=== PATIENT | female | born 1935 | race Caucasian/White ===

== ENCOUNTER 2017-02-05 03:43 | Emergency (ER) | payer MEDICAID ==
[~2017-02-05] VITALS: Ht 152.4 cm; Wt 82.0 kg
[~2017-02-05 03:43] MED LIST: ASPI-1035 PO; FURO-151 PO; GABA-531 PO; LOSA100T14 PO; Nifedipine PO; OMEP20TA80 PO; ONDA4TAB5 PO; SIMV20TA6 PO
[2017-02-05 04:28] VITALS: BP 199/87
[2017-02-05 04:50] LABS: BASOPHILS % 0.4 % (0.0-2.0); HEMOGLOBIN. 10.5 g/dL (12.0-16.0); MEAN CORPUSCULAR VOLUME 91.2 fL (81.0-99.0); MEAN PLATELET VOLUME 8.8 fl (7.4-10.4); MONOCYTES % 8.8 % (2.0-8.0); NEUTROPHILS % 68.8 % (40.0-76.0); PLATELET 157 x1000/uL (130-400); RED CELL DISTRIBUTION WIDTH 14.2 % (11.6-14.6); WHITE BLOOD COUNT 6.9 x1000/uL (4.5-11.0)
[2017-02-05 05:01] LABS: ALANINE AMINOTRANSFERASE 18 IU/L (13-61); ALBUMIN 2.1 g/dL (3.4-5.0); ANION GAP 12; CALCIUM 8.3 mg/dL (8.5-10.1); CARBON DIOXIDE 27 mEq/L (21-32); CHLORIDE 111 mEq/L (98-107); INDEX HEMOLYSI 1 (1-3); INDEX ICTERIC 1 (1-4); INDEX LIPEMIC 1 (1-3); UREA NITROGEN BLOOD 17 mg/dL (7-21); eGFR 36 mL/min (>60)
[2017-02-05 05:16] LABS: PARTIAL THROMBOPLASTIN TIME 32.7 sec (24.0-34.0); PROTHROMBIN TIME 10.8 sec
== END 2017-02-05 07:04 | disposition home or self-care (01) ==
LOC: ER 03:44
DX: S01.81XA Laceration without foreign body of other part of head, initial encounter (principal); M54.2 Cervicalgia; E11.9 Type 2 diabetes mellitus without complications; M25.562 Pain in left knee; R79.1 Abnormal coagulation profile; W19.XXXA Unspecified fall, initial encounter; Y93.89 Activity, other specified; Y99.8 Other external cause status; Y92.89 Other specified places as the place of occurrence of the external cause; Z79.82 Long term (current) use of aspirin
CPT/HCPCS: 36415; 70450; 70486; 72125; 73562; 80053; 85025; 85610; 85730; 99285; Z7610

== ENCOUNTER 2017-07-11 19:38 | Inpatient (IN) | payer MEDICAID ==
[~2017-07-11] VITALS: Ht 134.6 cm; Wt 66.2 kg
[~2017-07-11 19:38] MED LIST changes: -ASPI-1035 PO; +ASPI-1158 PO; +OMEP20TA2 PO; -OMEP20TA80 PO
[2017-07-11] MEDS ORDERED: ONDANSETRON HCL 4MG/2ML VIAL IV ONE (20:45)
[2017-07-11] MEDS ORDERED: MORPHINE SULFATE 4 MG/ML CPJ (NOT FOR IM USE) IV ONE (20:45)
[2017-07-11 20:47] LABS: BASOPHILS % 0.3 % (0.0-2.0); HEMATOCRIT. 34.3 % (36.0-48.0); HEMOGLOBIN. 11.6 g/dL (12.0-16.0); LYMPHOCYTES % 24.2 % (20.0-50.0); MEAN CORPUSCULAR HEMOGLOBIN 30.7 pg (28.0-32.0); MEAN CORPUSCULAR VOLUME 90.8 fL (81.0-99.0); NEUTROPHILS % 62.5 % (40.0-76.0); PLATELET 224 x1000/uL (130-400); RED BLOOD CELL COUNT 3.78 mill/uL (4.2-5.4); RED CELL DISTRIBUTION WIDTH 13.8 % (11.6-14.6)
[2017-07-11 20:48] LABS: GLUCOSE URINE 1+ (NEGATIVE); KETONES URINE NEGATIVE (NEGATIVE); LEUKOCYTE ESTERASE URINE NEGATIVE (NEGATIVE); NITRITE URINE NEGATIVE (NEGATIVE); OCCULT BLOOD URINE 1+ (NEGATIVE); PH URINE 7.5 (4.5-8.0); PROTEIN URINE 3+ (NEGATIVE); SPECIFIC GRAVITY URINE 1.007 (1.005-1.030); UROBILINOGEN URINE 0.2 E.U./dL (0.2-1.0)
[2017-07-11 20:50] LABS: CLARITY URINE CLEAR (CLEAR); COLOR URINE YELLOW (YELLOW)
[2017-07-11 20:51] LABS: CHLORIDE 107 mEq/L (98-107)
[2017-07-11 20:53] LABS: PROTHROMBIN TIME 10.4 sec (9.4-11.6)
[2017-07-11 20:55] LABS: CARBON DIOXIDE 22 mEq/L (21-32)
[2017-07-11 21:02] LABS: TROPONIN I < 0.02 ng/mL (0.00-0.04)
[2017-07-11] MEDS ORDERED: SODIUM POLYSTYRENE SULFONATE 15 G/60 ML BOT PO ONE (21:15)
[2017-07-11] MEDS ORDERED: HYDRALAZINE 20MG/ML VIAL IV ONE (21:15)
[2017-07-11] MEDS ORDERED: CALCIUM CHLORIDE 1GM/10ML SYR IV ONE (21:15)
[2017-07-11] MEDS ORDERED: SODIUM BICARBONATE 8.4% 1 MEQ/ML 50ML SYR IV ONE (21:15)
[2017-07-12] MEDS ORDERED: FUROSEMIDE 100MG/10ML VIAL IV STA (00:48)
[2017-07-12] MEDS ORDERED: SODIUM BICARBONATE 8.4% 1 MEQ/ML 50ML SYR IV ONE (01:00)
[2017-07-12] MEDS ORDERED: INSULIN REGULAR (HUMULIN R) 300UNITS/3ML IV ONE (01:00)
[2017-07-12] MEDS ORDERED: DEXTROSE 50% WATER 50ML SYRINGE IV ONE (01:00)
[2017-07-12 02:10] VITALS: BP 156/63
[2017-07-12 04:00] VITALS: BP 156/63
[2017-07-12] MEDS ORDERED: DEXTROSE 50% WATER 50ML SYRINGE IV PRN (05:00)
[2017-07-12] MEDS ORDERED: HYDROCODONE/ACETAMINOPHEN 5/325MG TABLET PO PRN (05:00)
[2017-07-12] MEDS: BLOOD SUGAR DIAGNOSTIC STRIP TEST SCH ×4 (06:07→21:28)
[2017-07-12 07:20] LABS: BASOPHILS % 0.3 % (0.0-2.0); HEMATOCRIT. 31.1 % (36.0-48.0); HEMOGLOBIN. 10.6 g/dL (12.0-16.0); LYMPHOCYTES % 19.1 % (20.0-50.0); MEAN CORPUSCULAR HEMOGLOBIN 30.6 pg (28.0-32.0); MEAN CORPUSCULAR VOLUME 90.1 fL (81.0-99.0); MEAN PLATELET VOLUME 8.9 fl (7.4-10.4); NEUTROPHILS % 69.6 % (40.0-76.0); PLATELET 210 x1000/uL (130-400); RED BLOOD CELL COUNT 3.45 mill/uL (4.2-5.4); RED CELL DISTRIBUTION WIDTH 13.9 % (11.6-14.6)
[2017-07-12 07:54] LABS: CARBON DIOXIDE 26 mEq/L (21-32); CHLORIDE 108 mEq/L (98-107); CREATINE KINASE 154 IU/L (26-192); CREATINE KINASE MB FRACTION 1.6 ng/mL (0.5-3.6); TROPONIN I < 0.02 ng/mL (0.00-0.04)
[2017-07-12 08:00] VITALS: BP 144/68
[2017-07-12] MEDS: INSULIN LISPRO 100 UNITS/ML SUBCUT SCH ×4 (09:18→21:37)
[2017-07-12] MEDS ORDERED: SODIUM POLYSTYRENE SULFONATE 15 G/60 ML BOT PO NR (11:00)
[2017-07-12 12:00] VITALS: BP 135/60
[2017-07-12] MEDS ORDERED: ACETAMINOPHEN 325MG TABLET PO PRN (12:15)
[2017-07-12] MEDS ORDERED: RANI150T7 PO (12:28)
[2017-07-12] MEDS ORDERED: OYSTER CALCIUM PO (12:28)
[2017-07-12] MEDS ORDERED: SPIR25TA4 PO (12:28)
[2017-07-12] MEDS ORDERED: FURO20TA4 PO (12:28)
[2017-07-12] MEDS ORDERED: AMLO2.5T45 PO (12:28)
[2017-07-12] MEDS ORDERED: OMEP20CA10 PO (12:28)
[2017-07-12] MEDS ORDERED: CHOL20004 PO (12:28)
[2017-07-12] MEDS ORDERED: SITA50TA3 PO (12:28)
[2017-07-12] MEDS ORDERED: VITAMIN D PO (12:30)
[2017-07-12] MEDS ORDERED: ALEN70TA46 PO (12:30)
[2017-07-12 15:39] LABS: CREATINE KINASE 130 IU/L (26-192); TROPONIN I < 0.02 ng/mL (0.00-0.04)
[2017-07-12 16:00] VITALS: BP 148/63
[2017-07-12] MEDS ORDERED: LACTULOSE 20G/30ML UDC PO NR ×2 (17:30→21:30)
[2017-07-12] MEDS: AMLODIPINE 2.5MG TABLET PO SCH (18:23)
[2017-07-12 20:00] VITALS: BP 133/69
[2017-07-12] MEDS ORDERED: MEDICATION NOT ON FORMULARY EA (Simvastatin 20 MG) PO SCH (21:00)
[2017-07-12] MEDS: ATORVASTATIN CALCIUM 10MG TABLET PO SCH (21:28)
[2017-07-13] VITALS: BP 155/78
[2017-07-13 04:00] VITALS: BP 145/56
[2017-07-13 06:46] LABS: BASOPHILS % 0.2 % (0.0-2.0); HEMATOCRIT. 30.4 % (36.0-48.0); HEMOGLOBIN. 10.2 g/dL (12.0-16.0); LYMPHOCYTES % 23.6 % (20.0-50.0); MEAN CORPUSCULAR HEMOGLOBIN 30.5 pg (28.0-32.0); MEAN PLATELET VOLUME 8.9 fl (7.4-10.4); MONOCYTES % 10.8 % (2.0-8.0); NEUTROPHILS % 62.4 % (40.0-76.0); PLATELET 195 x1000/uL (130-400); RED BLOOD CELL COUNT 3.35 mill/uL (4.2-5.4); RED CELL DISTRIBUTION WIDTH 13.8 % (11.6-14.6)
[2017-07-13] MEDS: BLOOD SUGAR DIAGNOSTIC STRIP TEST SCH ×4 (07:40→21:31)
[2017-07-13 08:00] VITALS: BP 138/69
[2017-07-13] MEDS: INSULIN LISPRO 100 UNITS/ML SUBCUT SCH ×4 (08:10→21:30)
[2017-07-13 08:36] LABS: T4 FREE 1.04 ng/dL (0.76-1.46)
[2017-07-13 09:00] LABS: FOLIC ACID (FOLATE) SERUM 18.2 ng/mL (>5.38)
[2017-07-13] MEDS ORDERED: MEDICATION NOT ON FORMULARY EA (Sitagliptin Phosphate (Januvia) 50 MG) PO SCH (09:00)
[2017-07-13] MEDS: CLOPIDOGREL 75MG TABLET PO SCH (09:07)
[2017-07-13] MEDS: AMLODIPINE 2.5MG TABLET PO SCH ×2 (09:07→18:07)
[2017-07-13] MEDS: BISACODYL 5MG TABLET PO SCH (09:07)
[2017-07-13] MEDS: LOSARTAN POTASSIUM 100 MG TABLET PO SCH (09:08)
[2017-07-13] MEDS: OMEPRAZOLE 20MG CAPSULE EXTENDED RELEASE PO SCH (09:08)
[2017-07-13] MEDS: LINAGLIPTIN 5MG TABLET PO SCH (09:08)
[2017-07-13] MEDS: ASPIRIN 81MG EC TABLET PO SCH (09:08)
[2017-07-13 12:00] VITALS: BP 126/60
[2017-07-13 14:02] LABS: AMMONIA 21 uMol/L (<32)
[2017-07-13 16:00] VITALS: BP 122/53
[2017-07-13 20:00] VITALS: BP 143/65
[2017-07-13] MEDS: ATORVASTATIN CALCIUM 10MG TABLET PO SCH (21:29)
[2017-07-13] MEDS: SODIUM CHLORIDE 0.45% 1,000 ML IV SCH (21:31)
[2017-07-14] VITALS: BP 156/62
[2017-07-14 04:00] VITALS: BP 142/64
[2017-07-14 06:54] LABS: BASOPHILS % 0.2 % (0.0-2.0); EOSINOPHILS % 1.4 % (0.0-5.0); HEMATOCRIT. 30.8 % (36.0-48.0); HEMOGLOBIN. 10.3 g/dL (12.0-16.0); LYMPHOCYTES % 11.8 % (20.0-50.0); MEAN CORPUSCULAR HEMOGLOBIN 30.2 pg (28.0-32.0); MEAN CORPUSCULAR VOLUME 90.3 fL (81.0-99.0); MEAN PLATELET VOLUME 8.9 fl (7.4-10.4); MONOCYTES % 8.9 % (2.0-8.0); NEUTROPHILS % 77.7 % (40.0-76.0); PLATELET 191 x1000/uL (130-400); RED BLOOD CELL COUNT 3.41 mill/uL (4.2-5.4); RED CELL DISTRIBUTION WIDTH 13.8 % (11.6-14.6)
[2017-07-14] MEDS: BLOOD SUGAR DIAGNOSTIC STRIP TEST SCH ×4 (07:40→20:57)
[2017-07-14 08:00] VITALS: BP 135/54
[2017-07-14] MEDS: INSULIN LISPRO 100 UNITS/ML SUBCUT SCH ×4 (08:10→20:58)
[2017-07-14] MEDS: CLOPIDOGREL 75MG TABLET PO SCH (09:12)
[2017-07-14] MEDS: LINAGLIPTIN 5MG TABLET PO SCH (09:12)
[2017-07-14] MEDS: ASPIRIN 81MG EC TABLET PO SCH (09:12)
[2017-07-14] MEDS: LOSARTAN POTASSIUM 100 MG TABLET PO SCH (09:12)
[2017-07-14] MEDS: BISACODYL 5MG TABLET PO SCH (09:12)
[2017-07-14] MEDS: OMEPRAZOLE 20MG CAPSULE EXTENDED RELEASE PO SCH (09:12)
[2017-07-14] MEDS: AMLODIPINE 2.5MG TABLET PO SCH ×2 (09:13→17:07)
[2017-07-14 12:00] VITALS: BP 130/60
[2017-07-14 16:00] VITALS: BP 128/68
[2017-07-14] MEDS: SODIUM CHLORIDE 0.45% 1,000 ML IV SCH (17:07)
[2017-07-14 20:00] VITALS: BP 154/67
[2017-07-14] MEDS: ATORVASTATIN CALCIUM 10MG TABLET PO SCH (20:57)
[2017-07-15] VITALS: BP 135/69
[2017-07-15 04:00] VITALS: BP 129/60
[2017-07-15] MEDS: BLOOD SUGAR DIAGNOSTIC STRIP TEST SCH ×4 (06:44→21:46)
[2017-07-15 08:00] VITALS: BP 150/63
[2017-07-15] MEDS: INSULIN LISPRO 100 UNITS/ML SUBCUT SCH ×4 (08:02→21:47)
[2017-07-15] MEDS: LOSARTAN POTASSIUM 100 MG TABLET PO SCH (08:59)
[2017-07-15] MEDS: OMEPRAZOLE 20MG CAPSULE EXTENDED RELEASE PO SCH (08:59)
[2017-07-15] MEDS: ASPIRIN 81MG EC TABLET PO SCH (08:59)
[2017-07-15] MEDS: AMLODIPINE 2.5MG TABLET PO SCH ×2 (09:00→18:32)
[2017-07-15] MEDS: BISACODYL 5MG TABLET PO SCH (09:00)
[2017-07-15] MEDS: LINAGLIPTIN 5MG TABLET PO SCH (09:00)
[2017-07-15] MEDS: CLOPIDOGREL 75MG TABLET PO SCH (09:00)
[2017-07-15] MEDS: CYANOCOBALAMIN 1000MCG/ML VIAL IM SCH (09:02)
[2017-07-15 12:00] VITALS: BP 131/59
[2017-07-15] MEDS: SODIUM CHLORIDE 0.45% 1,000 ML IV SCH (13:30)
[2017-07-15 16:00] VITALS: BP 132/53
[2017-07-15 20:00] VITALS: BP 125/54
[2017-07-15] MEDS: ATORVASTATIN CALCIUM 10MG TABLET PO SCH (21:46)
[2017-07-16] VITALS (7 sets, daily range): BP systolic 121–155; BP diastolic 50–68
[2017-07-16] MEDS ORDERED: BISACODYL 5MG TABLET PO PRN (05:00)
[2017-07-16 05:58] LABS: BASOPHILS % 0.4 % (0.0-2.0); EOSINOPHILS % 3.4 % (0.0-5.0); HEMATOCRIT. 29.2 % (36.0-48.0); HEMOGLOBIN. 9.8 g/dL (12.0-16.0); LYMPHOCYTES % 27.7 % (20.0-50.0); MEAN CORPUSCULAR HEMOGLOBIN 30.5 pg (28.0-32.0); MEAN CORPUSCULAR VOLUME 90.4 fL (81.0-99.0); MEAN PLATELET VOLUME 8.9 fl (7.4-10.4); MONOCYTES % 11.1 % (2.0-8.0); NEUTROPHILS % 57.4 % (40.0-76.0); PLATELET 164 x1000/uL (130-400); RED BLOOD CELL COUNT 3.23 mill/uL (4.2-5.4); RED CELL DISTRIBUTION WIDTH 13.5 % (11.6-14.6)
[2017-07-16] MEDS: BLOOD SUGAR DIAGNOSTIC STRIP TEST SCH ×3 (06:50→18:38)
[2017-07-16] MEDS ORDERED: FAMOTIDINE 20MG TABLET PO SCH (09:00)
[2017-07-16] MEDS: LINAGLIPTIN 5MG TABLET PO SCH (10:21)
[2017-07-16] MEDS: CLOPIDOGREL 75MG TABLET PO SCH (10:21)
[2017-07-16] MEDS: BISACODYL 5MG TABLET PO SCH (10:21)
[2017-07-16] MEDS: ASPIRIN 81MG EC TABLET PO SCH (10:21)
[2017-07-16] MEDS: CYANOCOBALAMIN 1000MCG/ML VIAL IM SCH (10:21)
[2017-07-16] MEDS: LOSARTAN POTASSIUM 100 MG TABLET PO SCH (10:22)
[2017-07-16] MEDS: AMLODIPINE 2.5MG TABLET PO SCH ×2 (10:31→18:52)
[2017-07-16] MEDS: INSULIN LISPRO 100 UNITS/ML SUBCUT SCH ×3 (10:38→19:03)
[2017-07-16] MEDS: SODIUM CHLORIDE 0.45% 1,000 ML IV SCH (10:40)
== END 2017-07-16 20:22 | DRG 45 ==
LOC: EDBEDREQ 22:47 → ER 07-12 00:27 → 7WST 07-12 02:12
PROVIDERS: ADMIT Internal Medicine; ATTEND Internal Medicine
DX: I63.9 Cerebral infarction, unspecified (principal); G92 Toxic encephalopathy; N17.9 Acute kidney failure, unspecified; E87.5 Hyperkalemia; D64.9 Anemia, unspecified; E11.22 Type 2 diabetes mellitus with diabetic chronic kidney disease; E53.8 Deficiency of other specified B group vitamins; E78.00 Pure hypercholesterolemia, unspecified; I12.9 Hypertensive chronic kidney disease with stage 1 through stage 4 chronic kidney disease, or unspecified chronic kidney disease; N18.3 Chronic kidney disease, stage 3 (moderate); K59.00 Constipation, unspecified; Z79.82 Long term (current) use of aspirin; Z79.84 Long term (current) use of oral hypoglycemic drugs; Z79.899 Other long term (current) drug therapy; Z82.49 Family history of ischemic heart disease and other diseases of the circulatory system; Z83.3 Family history of diabetes mellitus; E44.0 Moderate protein-calorie malnutrition
CPT/HCPCS: 36415; 70450; 70551; 71010; 74176; 76770; 80048; 80053; 80061; 81001; 82140; 82550; 82553; 82607; 82746; 82962; 83036; 83690; 83880; 84439; 84443; 84481; 84484; 85025; 85610; 85730; 93005; 93306; 93880; 93970; 96374; 96375; 97110; 97116; 97162; 97166; 99285; J0360; J1815; J1940; J2270; J2405; J3420; J3490

== ENCOUNTER 2017-07-27 11:04 | Emergency (ER) | payer MEDICAID ==
[~2017-07-27] VITALS: Ht 149.9 cm; Wt 70.0 kg
[~2017-07-27 11:04] MED LIST changes: +ALEN70TA46 PO; +AMLO2.5T45 PO; -FURO-151 PO; +FURO20TA4 PO; +OMEP20CA10 PO; +OYSTER CALCIUM PO; +RANI150T7 PO; +SITA50TA3 PO; +SPIR25TA4 PO; +VITAMIN D PO
[2017-07-27] MEDS ORDERED: ONDANSETRON HCL 4MG/2ML VIAL IV STA (12:59)
[2017-07-27] MEDS ORDERED: MORPHINE SULFATE 4 MG/ML CPJ (NOT FOR IM USE) IV STA (12:59)
[2017-07-27 13:17] LABS: BASOPHILS % 0.5 % (0.0-2.0); EOSINOPHILS % 2.8 % (0.0-5.0); HEMOGLOBIN. 10.8 g/dL (12.0-16.0); LYMPHOCYTES % 23.3 % (20.0-50.0); MEAN CORPUSCULAR HEMOGLOBIN 30.5 pg (28.0-32.0); MEAN CORPUSCULAR VOLUME 90.5 fL (81.0-99.0); MEAN PLATELET VOLUME 8.2 fl (7.4-10.4); MONOCYTES % 6.5 % (2.0-8.0); NEUTROPHILS % 66.9 % (40.0-76.0); PLATELET 174 x1000/uL (130-400); RED BLOOD CELL COUNT 3.54 mill/uL (4.2-5.4)
[2017-07-27 13:23] LABS: CHLORIDE 111 mEq/L (98-107)
[2017-07-27 13:26] LABS: CLARITY URINE CLEAR (CLEAR); COLOR URINE YELLOW (YELLOW); GLUCOSE URINE 2+ (NEGATIVE); KETONES URINE NEGATIVE (NEGATIVE); LEUKOCYTE ESTERASE URINE NEGATIVE (NEGATIVE); NITRITE URINE NEGATIVE (NEGATIVE); OCCULT BLOOD URINE TRACE (NEGATIVE); PROTEIN URINE 3+ (NEGATIVE); SPECIFIC GRAVITY URINE 1.013 (1.005-1.030); UROBILINOGEN URINE 0.2 E.U./dL (0.2-1.0)
[2017-07-27 13:26] LABS: PARTIAL THROMBOPLASTIN TIME 31.8 sec (23.4-31.0); PROTHROMBIN TIME 10.6 sec (9.4-11.6)
[2017-07-27 13:28] LABS: CARBON DIOXIDE 24 mEq/L (21-32)
[2017-07-27 18:01] VITALS: BP 155/71
== END 2017-07-27 20:02 | disposition home or self-care (01) ==
LOC: ER 11:14
DX: R60.0 Localized edema (principal); I12.9 Hypertensive chronic kidney disease with stage 1 through stage 4 chronic kidney disease, or unspecified chronic kidney disease; N18.9 Chronic kidney disease, unspecified; J44.9 Chronic obstructive pulmonary disease, unspecified; D63.1 Anemia in chronic kidney disease; E11.22 Type 2 diabetes mellitus with diabetic chronic kidney disease; E78.00 Pure hypercholesterolemia, unspecified; Z86.73 Personal history of transient ischemic attack (TIA), and cerebral infarction without residual deficits; Z79.82 Long term (current) use of aspirin; Z98.890 Other specified postprocedural states
CPT/HCPCS: 36415; 71010; 80053; 81001; 83690; 83880; 85025; 85610; 85730; 87086; 93005; 93970; 96374; 96375; 99285; J2270; J2405; Z7610

== ENCOUNTER 2018-06-29 18:35 | Inpatient (IN) | payer MEDICAID ==
[~2018-06-29] VITALS: Ht 157.5 cm; Wt 64.0 kg
[~2018-06-29 18:35] MED LIST changes: +AMLO10TA4 PO; -AMLO2.5T45 PO; +AMLO5TAB4 PO; +BRIM15DR2 EACHEYE; +DOCU-138 PO; -GABA-531 PO; +INSLIS SUBCUT; +INSU100I28 SQ; -Nifedipine PO; -OMEP20CA10 PO; -ONDA4TAB5 PO; -SITA50TA3 PO; -SPIR25TA4 PO; +TIMO15DR12 EACHEYE
[2018-06-29] MEDS ORDERED: MORPHINE SULFATE 4 MG/ML CPJ (NOT FOR IM USE) IV STA (19:57)
[2018-06-29] MEDS ORDERED: ONDANSETRON HCL 4MG/2ML VIAL IV STA (19:57)
[2018-06-29 22:02] LABS: BASOPHILS % 0.2 % (0.0-2.0); EOSINOPHILS % 0.8 % (0.0-5.0); HEMATOCRIT. 22.4 % (36.0-48.0); HEMOGLOBIN. 7.9 g/dL (12.0-16.0); LYMPHOCYTES % 17.6 % (20.0-50.0); MEAN CORPUSCULAR HEMOGLOBIN 35.4 pg (28.0-32.0); MEAN CORPUSCULAR VOLUME 100.2 fL (81.0-99.0); MEAN PLATELET VOLUME 8.5 fl (7.4-10.4); MONOCYTES % 7.7 % (2.0-8.0); NEUTROPHILS % 73.7 % (40.0-76.0); PLATELET 158 x1000/uL (130-400); RED BLOOD CELL COUNT 2.23 mill/uL (4.2-5.4); RED CELL DISTRIBUTION WIDTH 16.9 % (11.6-14.6)
[2018-06-29 22:04] LABS: CHLORIDE 97 mEq/L (98-107)
[2018-06-30] VITALS (8 sets, daily range): BP systolic 120–164; BP diastolic 42–58
[2018-06-30] MEDS ORDERED: DEXTROSE 50% WATER 50ML SYRINGE IV PRN (03:30)
[2018-06-30] MEDS ORDERED: IRON SUCROSE COMPLEX 100 MG/5 ML ML IV NR (04:00)
[2018-06-30] MEDS: BLOOD SUGAR DIAGNOSTIC STRIP TEST SCH ×4 (06:45→20:23)
[2018-06-30] MEDS: INSULIN LISPRO 100 UNITS/ML SUBCUT SCH ×4 (07:50→21:00)
[2018-06-30] MEDS ORDERED: HYDROCODONE/ACETAMINOPHEN 5/325MG TABLET PO PRN (08:45)
[2018-06-30] MEDS ORDERED: CLONIDINE 0.1MG TABLET PO PRN (08:45)
[2018-06-30] MEDS: SEVELAMER CARBONATE 800 MG TABLET PO SCH ×3 (08:48→17:50)
[2018-06-30] MEDS ORDERED: FERR-71 PO (08:59)
[2018-06-30] MEDS ORDERED: CALC0.253 PO (08:59)
[2018-06-30] MEDS ORDERED: MULT-1183 PO (08:59)
[2018-06-30] MEDS ORDERED: HYDR-4135 PO (08:59)
[2018-06-30] MEDS ORDERED: MORPHINE SULFATE 4 MG/ML CPJ (NOT FOR IM USE) IV PRN (09:00)
[2018-06-30] MEDS ORDERED: AMLODIPINE 10MG TABLET PO SCH (09:00)
[2018-06-30] MEDS ORDERED: ASPIRIN 325MG EC TABLET PO SCH (09:00)
[2018-06-30] MEDS ORDERED: FOLIC ACID/VITAMIN B COMP W-C TABLET PO SCH (09:00)
[2018-06-30] MEDS ORDERED: ATORVASTATIN CALCIUM 40MG TABLET PO SCH (21:00)
[2018-06-30] MEDS ORDERED: EPOETIN ALFA 4000UNITS/ML VIAL SUBCUT SCH (21:00)
[2018-06-30] MEDS ORDERED: IRON SUCROSE COMPLEX 100 MG/5 ML ML IV SCH (21:30)
[2018-07-01] MEDS ORDERED: IRON SUCROSE COMPLEX 100 MG/5 ML ML IV SCH (11:00)
== END 2018-06-30 21:30 | disposition home or self-care (01) | DRG 133 ==
LOC: ER 18:35 → 6WST 22:57 → EDBEDREQ 23:08 → EDBEDREQTM 23:08 → ENRESERV 23:35 → 6WST 06-30 00:55
PROVIDERS: ADMIT Internal Medicine; ATTEND Internal Medicine
PROC: 5A1D70Z Performance of Urinary Filtration, Intermittent, Less than 6 Hours Per Day (ICD-10-PCS; principal; 2018-06-30)
DX: J96.01 Acute respiratory failure with hypoxia (principal); G93.49 Other encephalopathy; E46 Unspecified protein-calorie malnutrition; N18.6 End stage renal disease; G90.8 Other disorders of autonomic nervous system; E11.22 Type 2 diabetes mellitus with diabetic chronic kidney disease; E78.5 Hyperlipidemia, unspecified; M48.061 Spinal stenosis, lumbar region without neurogenic claudication; D63.8 Anemia in other chronic diseases classified elsewhere; I13.11 Hypertensive heart and chronic kidney disease without heart failure, with stage 5 chronic kidney disease, or end stage renal disease; E87.8 Other disorders of electrolyte and fluid balance, not elsewhere classified; Z68.25 Body mass index [BMI] 25.0-25.9, adult; Z86.73 Personal history of transient ischemic attack (TIA), and cerebral infarction without residual deficits; Z99.2 Dependence on renal dialysis; Z79.899 Other long term (current) drug therapy; Z79.82 Long term (current) use of aspirin; Z79.4 Long term (current) use of insulin
CPT/HCPCS: 36415; 70450; 70551; 71045; 80053; 82962; 83605; 83880; 84484; 85025; 87040; 93005; 96374; 96375; 97162; 99291; J0885; J1815; J2270; J2405

== ENCOUNTER 2018-12-06 18:45 | Inpatient (IN) | payer MEDICAID ==
[~2018-12-06] VITALS: Ht 157.5 cm; Wt 61.7 kg
[~2018-12-06 18:45] MED LIST changes: -AMLO10TA4 PO; +CALC0.253 PO; +FERR-71 PO; +HYDR-4135 PO; -INSLIS SUBCUT; -LOSA100T14 PO; +MULT-1183 PO; -OMEP20TA2 PO
[2018-12-06] MEDS ORDERED: SODIUM CHLORIDE 0.9% 1,000 ML IV ONE (19:22)
[2018-12-06 19:55] LABS: BASOPHILS % 0.4 % (0.0-2.0); EOSINOPHILS % 3.5 % (0.0-5.0); HEMATOCRIT. 27.6 % (36.0-48.0); HEMOGLOBIN. 9.3 g/dL (12.0-16.0); LYMPHOCYTES % 23.3 % (20.0-50.0); MEAN CORPUSCULAR HEMOGLOBIN 33.6 pg (28.0-32.0); MEAN CORPUSCULAR VOLUME 99.5 fL (81.0-99.0); MEAN PLATELET VOLUME 8.2 fl (7.4-10.4); MONOCYTES % 12.9 % (2.0-8.0); NEUTROPHILS % 59.9 % (40.0-76.0); PLATELET 163 x1000/uL (130-400); RED BLOOD CELL COUNT 2.77 mill/uL (4.2-5.4); RED CELL DISTRIBUTION WIDTH 16.5 % (11.6-14.6)
[2018-12-06 20:02] LABS: CHLORIDE 99 mEq/L (98-107)
[2018-12-06 20:04] LABS: INR 1.1; PARTIAL THROMBOPLASTIN TIME 42.1 sec (23.4-31.0); PROTHROMBIN TIME 10.8 sec (9.1-11.1)
[2018-12-06] MEDS ORDERED: ASPIRIN 81MG TABLET PO ONE (21:00)
[2018-12-07] VITALS (7 sets, daily range): BP systolic 118–166; BP diastolic 44–73
[2018-12-07 07:00] LABS: CLARITY URINE CLEAR (CLEAR); COLOR URINE YELLOW (YELLOW); KETONES URINE NEGATIVE (NEGATIVE); LEUKOCYTE ESTERASE URINE 1+ (NEGATIVE); NITRITE URINE POSITIVE (NEGATIVE); OCCULT BLOOD URINE NEGATIVE (NEGATIVE); PH URINE 7.5 (4.5-8.0); PROTEIN URINE TRACE (NEGATIVE); UROBILINOGEN URINE 0.2 E.U./dL (0.2-1.0)
[2018-12-07] MEDS ORDERED: ACETAMINOPHEN 325MG TABLET PO PRN (07:30)
[2018-12-07] MEDS ORDERED: ONDANSETRON HCL 4MG/2ML INJ IV PRN (07:30)
[2018-12-07] MEDS ORDERED: DEXTROSE 50% WATER 50ML SYRINGE IV PRN (07:30)
[2018-12-07] MEDS: AMLODIPINE 2.5MG TABLET PO SCH (11:00)
[2018-12-07] MEDS: BLOOD SUGAR DIAGNOSTIC STRIP TEST SCH ×3 (12:13→21:47)
[2018-12-07] MEDS: INSULIN LISPRO 100 UNITS/ML SUBCUT SCH ×3 (13:05→21:00)
[2018-12-07] MEDS: IRON SUCROSE COMPLEX 100 MG/5 ML ML IV SCH ×2 (21:00→21:46)
[2018-12-07] MEDS: CEFTRIAXONE 1,000 MG in DEXTROSE 5% WATER 50 ML IV SCH ×2 (21:00→21:49)
[2018-12-07] MEDS ORDERED: EPOETIN ALFA 10000UNITS/ML VIAL SUBCUT ONE (21:00)
[2018-12-07] MEDS: INSULIN GLARGINE UD 100 UNITS/ML SYR SUBCUT SCH (21:48)
[2018-12-08] VITALS (10 sets, daily range): BP systolic 112–173; BP diastolic 52–77
[2018-12-08 05:37] LABS: BASOPHILS % 0.3 % (0.0-2.0); EOSINOPHILS % 4.6 % (0.0-5.0); HEMATOCRIT. 25.6 % (36.0-48.0); HEMOGLOBIN. 8.5 g/dL (12.0-16.0); MEAN CORPUSCULAR HEMOGLOBIN 33.1 pg (28.0-32.0); MEAN CORPUSCULAR VOLUME 99.5 fL (81.0-99.0); MEAN PLATELET VOLUME 8.6 fl (7.4-10.4); MONOCYTES % 11.1 % (2.0-8.0); PLATELET 136 x1000/uL (130-400); RED BLOOD CELL COUNT 2.58 mill/uL (4.2-5.4); RED CELL DISTRIBUTION WIDTH 16.3 % (11.6-14.6)
[2018-12-08 06:01] LABS: CHLORIDE 112 mEq/L (98-107)
[2018-12-08] MEDS: INSULIN LISPRO 100 UNITS/ML SUBCUT SCH ×3 (06:31→17:20)
[2018-12-08] MEDS: BLOOD SUGAR DIAGNOSTIC STRIP TEST SCH ×3 (06:31→16:57)
[2018-12-08] MEDS: AMLODIPINE 2.5MG TABLET PO SCH (08:23)
[2018-12-08] MEDS: INSULIN GLARGINE UD 100 UNITS/ML SYR SUBCUT SCH (10:20)
[2018-12-08] MEDS: IRON SUCROSE COMPLEX 100 MG/5 ML ML IV SCH (17:00)
== END 2018-12-08 18:00 | disposition home or self-care (01) | DRG 201 ==
LOC: ER 18:45 → 3WST 20:48 → ENRESERV 12-07 02:10 → CANRESERV 12-07 02:10 → ENRESERV 12-07 02:29
PROVIDERS: ADMIT Internal Medicine; ATTEND Internal Medicine
PROC: 5A1D70Z Performance of Urinary Filtration, Intermittent, Less than 6 Hours Per Day (ICD-10-PCS; principal; 2018-12-07)
PROC: 02HV33Z Insertion of Infusion Device into Superior Vena Cava, Percutaneous Approach (ICD-10-PCS; 2018-12-08)
PROC: B5181ZA Fluoroscopy of Superior Vena Cava using Low Osmolar Contrast, Guidance (ICD-10-PCS; 2018-12-08)
PROC: B548ZZA Ultrasonography of Superior Vena Cava, Guidance (ICD-10-PCS; 2018-12-08)
DX: R00.1 Bradycardia, unspecified (principal); I13.2 Hypertensive heart and chronic kidney disease with heart failure and with stage 5 chronic kidney disease, or end stage renal disease; E11.22 Type 2 diabetes mellitus with diabetic chronic kidney disease; I95.9 Hypotension, unspecified; N18.6 End stage renal disease; I50.9 Heart failure, unspecified; D63.1 Anemia in chronic kidney disease; E44.1 Mild protein-calorie malnutrition; N39.0 Urinary tract infection, site not specified; E83.42 Hypomagnesemia; H40.9 Unspecified glaucoma; Z79.4 Long term (current) use of insulin; E78.5 Hyperlipidemia, unspecified; E03.9 Hypothyroidism, unspecified; Z86.73 Personal history of transient ischemic attack (TIA), and cerebral infarction without residual deficits; E66.9 Obesity, unspecified; Z87.01 Personal history of pneumonia (recurrent); Z99.2 Dependence on renal dialysis; Z68.24 Body mass index [BMI] 24.0-24.9, adult
CPT/HCPCS: 36415; 36569; 71045; 76937; 77001; 80048; 82962; 83036; 83735; 83880; 84134; 84443; 84484; 93005; 93306; 93970; 96360; 96361; 99285; C1725; C1893; J0696; J0885; J1815; J7030; J7050; J7060

== ENCOUNTER 2018-12-27 07:21 | Inpatient (IN) | payer MEDICAID ==
[~2018-12-27] VITALS: Ht 157.5 cm; Wt 60.8 kg
[2018-12-27] VITALS (7 sets, daily range): BP systolic 105–147; BP diastolic 31–61
[~2018-12-27 07:21] MED LIST changes: -TIMO15DR12 EACHEYE
[2018-12-27] MEDS ORDERED: ONDANSETRON HCL 4MG/2ML INJ IV STA (08:30)
[2018-12-27] MEDS ORDERED: ONDANSETRON 4MG ODT PO STA (08:30)
[2018-12-27 08:48] LABS: BASOPHILS % 0.3 % (0.0-2.0); HEMOGLOBIN. 8.1 g/dL (12.0-16.0); MEAN CORPUSCULAR HEMOGLOBIN 33.3 pg (28.0-32.0); MEAN CORPUSCULAR VOLUME 98.1 fL (81.0-99.0); MEAN PLATELET VOLUME 8.4 fl (7.4-10.4); MONOCYTES % 8.7 % (2.0-8.0); PLATELET 131 x1000/uL (130-400); RED BLOOD CELL COUNT 2.45 mill/uL (4.2-5.4); RED CELL DISTRIBUTION WIDTH 16.9 % (11.6-14.6)
[2018-12-27 08:53] LABS: INR 1.2; PROTHROMBIN TIME 12.3 sec (9.1-11.1)
[2018-12-27 08:54] LABS: CHLORIDE 98 mEq/L (98-107)
[2018-12-27] MEDS ORDERED: OSELTAMIVIR 75MG CAPSULE PO ONE (09:45)
[2018-12-27] MEDS ORDERED: LIDOCAINE HCL/PF 1% 10 MG/ML 5ML VIAL IJ ONE (10:00)
[2018-12-27] MEDS ORDERED: LEVOFLOXACIN 750MG PREMIX 150 ML IV ONE (10:15)
[2018-12-27] MEDS ORDERED: IOHEXOL-300 100 ML BOTTLE ONE (10:41)
[2018-12-27] MEDS ORDERED: ASPIRIN 81MG TABLET PO ONE (11:00)
[2018-12-27] MEDS ORDERED: FUROSEMIDE 40MG/4ML VIAL IVP ONE (11:00)
[2018-12-27] MEDS ORDERED: DOCUSATE SODIUM 100MG CAPSULE PO PRN (14:15)
[2018-12-27] MEDS ORDERED: DIPHENHYDRAMINE 50MG/ML VIAL IV PRN (14:15)
[2018-12-27] MEDS ORDERED: ONDANSETRON HCL 4MG/2ML INJ IV PRN (14:15)
[2018-12-27] MEDS ORDERED: ACETAMINOPHEN 325MG TABLET PO PRN (14:15)
[2018-12-27] MEDS ORDERED: IPRATROPIUM/ALBUTEROL 0.5-3(2.5)MG/3ML NEB INH PRN (14:15)
[2018-12-27] MEDS ORDERED: DEXTROSE 50% WATER 50ML SYRINGE IV PRN (14:15)
[2018-12-27] MEDS ORDERED: MAGNESIUM/ALUMINUM HYDROXIDE/SIMETHICONE 30ML UDC PO PRN (14:15)
[2018-12-27] MEDS ORDERED: HYDROMORPHONE HCL/PF 2MG/ML CPJ IV PRN (14:15)
[2018-12-27] MEDS ORDERED: CLONIDINE 0.1MG TABLET PO PRN (14:15)
[2018-12-27] MEDS ORDERED: LORAZEPAM 2MG/ML CPJ IV PRN (14:15)
[2018-12-27] MEDS ORDERED: HYDRALAZINE 20MG/ML VIAL IV PRN (14:15)
[2018-12-27] MEDS ORDERED: ENOXAPARIN 30MG/0.3ML SYR SUBCUT NR (17:00)
[2018-12-27] MEDS: HYDROCODONE/ACETAMINOPHEN 10/325MG TABLET PO PRN (20:15)
[2018-12-27] MEDS: INSULIN LISPRO 100 UNITS/ML SUBCUT SCH (21:00)
[2018-12-27] MEDS: GUAIFENESIN 200MG/10ML SUGAR FREE UDC PO PRN (21:14)
[2018-12-27] MEDS: BLOOD SUGAR DIAGNOSTIC STRIP TEST SCH (21:24)
[2018-12-27] MEDS: SODIUM CHLORIDE 0.9% INJ 3ML FLUSH IVF SCH (23:19)
[2018-12-27] MEDS: IRON SUCROSE COMPLEX 100 MG/5 ML ML IV SCH (23:19)
[2018-12-28] VITALS (24 sets, daily range): BP systolic 96–206; BP diastolic 22–96
[2018-12-28] MEDS: BLOOD SUGAR DIAGNOSTIC STRIP TEST SCH ×4 (05:45→21:32)
[2018-12-28] MEDS: SODIUM CHLORIDE 0.9% INJ 3ML FLUSH IVF SCH ×3 (05:54→21:35)
[2018-12-28 07:07] LABS: CHLORIDE 97 mEq/L (98-107)
[2018-12-28 07:19] LABS: BASOPHILS % 0.5 % (0.0-2.0); EOSINOPHILS % 0.5 % (0.0-5.0); HEMATOCRIT. 21.2 % (36.0-48.0); HEMOGLOBIN. 7.3 g/dL (12.0-16.0); LYMPHOCYTES % 28.1 % (20.0-50.0); MEAN CORPUSCULAR HEMOGLOBIN 33.6 pg (28.0-32.0); MEAN CORPUSCULAR VOLUME 98.4 fL (81.0-99.0); MEAN PLATELET VOLUME 9.5 fl (7.4-10.4); MONOCYTES % 9.3 % (2.0-8.0); NEUTROPHILS % 61.6 % (40.0-76.0); PLATELET 109 x1000/uL (130-400); RED BLOOD CELL COUNT 2.16 mill/uL (4.2-5.4); RED CELL DISTRIBUTION WIDTH 16.5 % (11.6-14.6)
[2018-12-28] MEDS: INSULIN LISPRO 100 UNITS/ML SUBCUT SCH ×4 (07:20→21:00)
[2018-12-28 07:27] LABS: LDL CHOLESTEROL 49 mg/dL (5-100)
[2018-12-28 07:30] LABS: CREATINE KINASE 260 IU/L (26-192); CREATINE KINASE MB FRACTION 3.5 ng/mL (0.5-3.6); HDL CHOLESTEROL 62 mg/dL (40-59); T4 FREE 1.26 ng/dL (0.76-1.46)
[2018-12-28] MEDS ORDERED: OSELTAMIVIR 30MG CAPSULE PO SCH (09:00)
[2018-12-28] MEDS: ENOXAPARIN 30MG/0.3ML SYR SUBCUT SCH (19:18)
[2018-12-28] MEDS ORDERED: EPOETIN ALFA 10000UNITS/ML VIAL SUBCUT NR (21:00)
[2018-12-28] MEDS: IRON SUCROSE COMPLEX 100 MG/5 ML ML IV SCH (21:30)
[2018-12-28] MEDS: OSELTAMIVIR 30MG CAPSULE PO SCH (21:33)
[2018-12-29] VITALS (15 sets, daily range): BP systolic 97–155; BP diastolic 30–72
[2018-12-29] MEDS: GUAIFENESIN 200MG/10ML SUGAR FREE UDC PO PRN (00:16)
[2018-12-29] MEDS: BLOOD SUGAR DIAGNOSTIC STRIP TEST SCH ×4 (05:52→21:00)
[2018-12-29] MEDS: SODIUM CHLORIDE 0.9% INJ 3ML FLUSH IVF SCH ×3 (05:53→21:48)
[2018-12-29] MEDS: INSULIN LISPRO 100 UNITS/ML SUBCUT SCH ×4 (07:20→21:00)
[2018-12-29] MEDS: ENOXAPARIN 30MG/0.3ML SYR SUBCUT SCH (17:27)
[2018-12-29 20:40] LABS: BASOPHILS % 0.2 % (0.0-2.0); EOSINOPHILS % 1.8 % (0.0-5.0); HEMATOCRIT. 21.7 % (36.0-48.0); HEMOGLOBIN. 7.3 g/dL (12.0-16.0); LYMPHOCYTES % 29.2 % (20.0-50.0); MEAN CORPUSCULAR HEMOGLOBIN 33.2 pg (28.0-32.0); MEAN CORPUSCULAR VOLUME 98.2 fL (81.0-99.0); MEAN PLATELET VOLUME 9.1 fl (7.4-10.4); MONOCYTES % 11.7 % (2.0-8.0); NEUTROPHILS % 57.1 % (40.0-76.0); PLATELET 132 x1000/uL (130-400); RED BLOOD CELL COUNT 2.21 mill/uL (4.2-5.4); RED CELL DISTRIBUTION WIDTH 16.3 % (11.6-14.6)
[2018-12-29] MEDS: IRON SUCROSE COMPLEX 100 MG/5 ML ML IV SCH (21:43)
[2018-12-29] MEDS: HYDROCODONE/ACETAMINOPHEN 10/325MG TABLET PO PRN (21:46)
[2018-12-29] MEDS: GUAIFENESIN 600MG ER TABLET PO SCH (21:46)
[2018-12-29] MEDS: OSELTAMIVIR 30MG CAPSULE PO SCH (21:46)
[2018-12-30] VITALS (12 sets, daily range): BP systolic 102–150; BP diastolic 38–68
[2018-12-30] MEDS: SODIUM CHLORIDE 0.9% INJ 3ML FLUSH IVF SCH ×3 (06:24→21:54)
[2018-12-30] MEDS: BLOOD SUGAR DIAGNOSTIC STRIP TEST SCH ×4 (06:24→21:54)
[2018-12-30] MEDS: HYDROCODONE/ACETAMINOPHEN 10/325MG TABLET PO PRN (06:27)
[2018-12-30] MEDS: INSULIN LISPRO 100 UNITS/ML SUBCUT SCH ×4 (06:28→22:21)
[2018-12-30 07:06] LABS: BASOPHILS % 0.4 % (0.0-2.0); HEMATOCRIT. 22.3 % (36.0-48.0); HEMOGLOBIN. 7.6 g/dL (12.0-16.0); LYMPHOCYTES % 35.5 % (20.0-50.0); MEAN CORPUSCULAR HEMOGLOBIN 33.3 pg (28.0-32.0); MEAN CORPUSCULAR VOLUME 98.2 fL (81.0-99.0); MEAN PLATELET VOLUME 9.2 fl (7.4-10.4); MONOCYTES % 11.5 % (2.0-8.0); NEUTROPHILS % 50.6 % (40.0-76.0); PLATELET 141 x1000/uL (130-400); RED BLOOD CELL COUNT 2.27 mill/uL (4.2-5.4); RED CELL DISTRIBUTION WIDTH 16.2 % (11.6-14.6)
[2018-12-30] MEDS: GUAIFENESIN 600MG ER TABLET PO SCH ×2 (08:33→21:53)
[2018-12-30] MEDS: ENOXAPARIN 30MG/0.3ML SYR SUBCUT SCH (16:54)
[2018-12-30] MEDS ORDERED: OSELTAMIVIR 30MG CAPSULE PO SCH (20:00)
[2018-12-30] MEDS: IRON SUCROSE COMPLEX 100 MG/5 ML ML IV SCH (21:53)
[2018-12-30] MEDS ORDERED: EPOETIN ALFA 4000UNITS/ML VIAL SUBCUT SCH (22:00)
[2018-12-31 00:01] VITALS: BP 143/44
[2018-12-31 01:00] VITALS: BP 141/118
[2018-12-31] MEDS ORDERED: LOSA100T14 PO (01:31)
[2018-12-31 04:00] VITALS: BP 110/55
[2018-12-31] MEDS: SODIUM CHLORIDE 0.9% INJ 3ML FLUSH IVF SCH (05:46)
[2018-12-31 06:20] LABS: BASOPHILS % 0.3 % (0.0-2.0); EOSINOPHILS % 1.9 % (0.0-5.0); HEMOGLOBIN. 7.8 g/dL (12.0-16.0); LYMPHOCYTES % 26.2 % (20.0-50.0); MEAN CORPUSCULAR VOLUME 96.9 fL (81.0-99.0); MEAN PLATELET VOLUME 9.9 fl (7.4-10.4); MONOCYTES % 11.4 % (2.0-8.0); NEUTROPHILS % 60.2 % (40.0-76.0); PLATELET 113 x1000/uL (130-400); RED BLOOD CELL COUNT 2.37 mill/uL (4.2-5.4); RED CELL DISTRIBUTION WIDTH 15.6 % (11.6-14.6)
[2018-12-31 08:00] VITALS: BP 164/71
[2018-12-31] MEDS: INSULIN LISPRO 100 UNITS/ML SUBCUT SCH (08:10)
[2018-12-31] MEDS: BLOOD SUGAR DIAGNOSTIC STRIP TEST SCH (08:14)
[2018-12-31] MEDS: GUAIFENESIN 600MG ER TABLET PO SCH (09:15)
[2018-12-31 10:34] VITALS: BP 112/29
== END 2018-12-31 11:15 | disposition home or self-care (01) | DRG 190 ==
LOC: ER 07:44 → EDBEDREQ 08:32 → 3WST 11:55 → EDBEDREQ 11:57 → EDBEDREQSVC 15:22 → ENRESERV 17:00 → 7WST 12-31 00:45
PROVIDERS: ADMIT Internal Medicine; ATTEND Internal Medicine
PROC: 02H633Z Insertion of Infusion Device into Right Atrium, Percutaneous Approach (ICD-10-PCS; principal; 2018-12-27)
PROC: B244ZZZ Ultrasonography of Right Heart (ICD-10-PCS; 2018-12-27)
PROC: 5A1D70Z Performance of Urinary Filtration, Intermittent, Less than 6 Hours Per Day (ICD-10-PCS; 2018-12-27)
PROC: 5A1D70Z Performance of Urinary Filtration, Intermittent, Less than 6 Hours Per Day (ICD-10-PCS; 2018-12-27)
PROC: 0PSJXZZ Reposition Left Radius, External Approach (ICD-10-PCS; 2018-12-27)
PROC: 0PSLXZZ Reposition Left Ulna, External Approach (ICD-10-PCS; 2018-12-27)
DX: I21.4 Non-ST elevation (NSTEMI) myocardial infarction (principal); J96.01 Acute respiratory failure with hypoxia; G93.40 Encephalopathy, unspecified; E46 Unspecified protein-calorie malnutrition; D61.818 Other pancytopenia; I13.2 Hypertensive heart and chronic kidney disease with heart failure and with stage 5 chronic kidney disease, or end stage renal disease; E11.22 Type 2 diabetes mellitus with diabetic chronic kidney disease; I49.5 Sick sinus syndrome; N18.6 End stage renal disease; J10.1 Influenza due to other identified influenza virus with other respiratory manifestations; S52.502A Unspecified fracture of the lower end of left radius, initial encounter for closed fracture; E78.5 Hyperlipidemia, unspecified; I45.10 Unspecified right bundle-branch block; M48.061 Spinal stenosis, lumbar region without neurogenic claudication; I50.9 Heart failure, unspecified; M85.80 Other specified disorders of bone density and structure, unspecified site; S09.90XA Unspecified injury of head, initial encounter; W06.XXXA Fall from bed, initial encounter; Y93.89 Activity, other specified; Y92.098 Other place in other non-institutional residence as the place of occurrence of the external cause; Y99.8 Other external cause status; Z79.4 Long term (current) use of insulin; Z79.82 Long term (current) use of aspirin; Z79.899 Other long term (current) drug therapy; Z86.73 Personal history of transient ischemic attack (TIA), and cerebral infarction without residual deficits; Z89.421 Acquired absence of other right toe(s); Z99.2 Dependence on renal dialysis
CPT/HCPCS: 36415; 36569; 71045; 71260; 73100; 73110; 74177; 76937; 80048; 80061; 82550; 82553; 82962; 83605; 84145; 84439; 84443; 84484; 87804; 93005; 96372; 96374; 96375; 99291; C1725; J0360; J0885; J1650; J1815; J1940; J1956; J3490; Q0162; Q9967

== ENCOUNTER 2019-01-06 19:05 | Inpatient (IN) | payer MEDICAID ==
[~2019-01-06] VITALS: Ht 157.5 cm; Wt 57.6 kg
[~2019-01-06 19:05] MED LIST changes: +LOSA100T14 PO
[2019-01-06 23:14] LABS: BASOPHILS % 0.4 % (0.0-2.0); EOSINOPHILS % 0.9 % (0.0-5.0); HEMATOCRIT. 25.7 % (36.0-48.0); HEMOGLOBIN. 8.7 g/dL (12.0-16.0); LYMPHOCYTES % 19.3 % (20.0-50.0); MEAN CORPUSCULAR VOLUME 97.7 fL (81.0-99.0); MEAN PLATELET VOLUME 8.2 fl (7.4-10.4); MONOCYTES % 9.7 % (2.0-8.0); NEUTROPHILS % 69.7 % (40.0-76.0); PLATELET 318 x1000/uL (130-400); RED BLOOD CELL COUNT 2.63 mill/uL (4.2-5.4); RED CELL DISTRIBUTION WIDTH 16.7 % (11.6-14.6)
[2019-01-06 23:17] LABS: CHLORIDE 94 mEq/L (98-107)
[2019-01-07] VITALS (7 sets, daily range): BP systolic 107–159; BP diastolic 24–51
[2019-01-07] MEDS ORDERED: ACETAMINOPHEN 325MG TABLET PO ONE (01:15)
[2019-01-07] MEDS ORDERED: DEXTROSE 50% WATER 50ML SYRINGE IV PRN (08:30)
[2019-01-07] MEDS ORDERED: [UNRECOGNIZED DRUG - OTHER] PO SCH (09:00)
[2019-01-07] MEDS ORDERED: MEDICATION NOT ON FORMULARY EA (Insulin Glargine,Hum.rec.anlog (Lantus Solostar) 25 UNIT SQ SCH (09:00)
[2019-01-07] MEDS ORDERED: OYSTER CALCIUM PO SCH (09:00)
[2019-01-07] MEDS ORDERED: IRON PO SCH (09:00)
[2019-01-07] MEDS ORDERED: MEDICATION NOT ON FORMULARY EA (Brimonidine Tartrate (Alphagan P) 1 DROP) EACHEYE SCH (09:00)
[2019-01-07] MEDS ORDERED: MEDICATION NOT ON FORMULARY EA (Furosemide 40 MG) PO SCH (09:00)
[2019-01-07] MEDS ORDERED: MEDICATION NOT ON FORMULARY EA (Hydralazine Hcl 50 MG) PO SCH (09:00)
[2019-01-07] MEDS ORDERED: ENOXAPARIN 40MG/0.4ML SYR SUBCUT SCH (09:00)
[2019-01-07] MEDS ORDERED: MEDICATION NOT ON FORMULARY EA (Calcitriol 1 CAP) PO SCH (09:00)
[2019-01-07] MEDS ORDERED: MEDICATION NOT ON FORMULARY EA (Aspirin (Aspirin Ec) 81 MG) PO SCH (09:00)
[2019-01-07] MEDS ORDERED: MULTIVITS CA MINERALS PO SCH (09:00)
[2019-01-07] MEDS ORDERED: MEDICATION NOT ON FORMULARY EA (Docusate Sodium (Colace) 1 CAP) PO SCH (09:00)
[2019-01-07] MEDS ORDERED: MEDICATION NOT ON FORMULARY EA (Amlodipine Besylate (Norvasc) 1 TAB) PO SCH (09:00)
[2019-01-07] MEDS: HYDRALAZINE HCL 50MG TABLET PO SCH ×3 (10:04→21:08)
[2019-01-07] MEDS: FERROUS SULFATE 325MG TABLET PO SCH ×2 (10:04→17:18)
[2019-01-07] MEDS: DOCUSATE SODIUM 100MG CAPSULE PO SCH ×3 (10:04→17:18)
[2019-01-07] MEDS: CALCITRIOL 0.25MCG CAPSULE PO SCH (10:04)
[2019-01-07] MEDS: CALCIUM CARBONATE 1250MG TABLET (500MG ELEMENTAL CALCIUM) PO SCH ×2 (10:04→17:18)
[2019-01-07] MEDS: FUROSEMIDE 40MG TABLET PO SCH (10:04)
[2019-01-07] MEDS: ASPIRIN 81MG EC TABLET PO SCH (10:05)
[2019-01-07] MEDS: MULTIVITAMINS,THER W-MINERALS TABLET PO SCH (10:05)
[2019-01-07] MEDS: AMLODIPINE 5MG TABLET PO SCH (10:05)
[2019-01-07] MEDS: ENOXAPARIN 30MG/0.3ML SYR SUBCUT SCH (10:05)
[2019-01-07] MEDS: INSULIN GLARGINE UD 100 UNITS/ML SYR SUBCUT SCH (11:15)
[2019-01-07] MEDS: BRIMONIDINE 0.2% OPHTH DROPS 5ML EACHEYE SCH ×2 (11:17→17:18)
[2019-01-07] MEDS: BLOOD SUGAR DIAGNOSTIC STRIP TEST SCH ×3 (12:35→21:07)
[2019-01-07] MEDS: INSULIN LISPRO 100 UNITS/ML SUBCUT SCH ×3 (14:00→21:00)
[2019-01-07] MEDS ORDERED: MEDICATION NOT ON FORMULARY EA (Ranitidine Hcl 150 MG) PO SCH (17:00)
[2019-01-07] MEDS ORDERED: FAMOTIDINE 20MG TABLET PO SCH (21:00)
[2019-01-07] MEDS ORDERED: MEDICATION NOT ON FORMULARY EA (Simvastatin 20 MG) PO SCH (21:00)
[2019-01-07] MEDS ORDERED: ATORVASTATIN CALCIUM 10MG TABLET PO SCH (21:00)
[2019-01-08] VITALS: BP 119/51
[2019-01-08 04:00] VITALS: BP 125/44
[2019-01-08] MEDS: FERROUS SULFATE 325MG TABLET PO SCH (06:43)
[2019-01-08] MEDS: HYDRALAZINE HCL 50MG TABLET PO SCH ×2 (06:44→13:15)
[2019-01-08] MEDS: BLOOD SUGAR DIAGNOSTIC STRIP TEST SCH ×3 (06:44→17:12)
[2019-01-08] MEDS: INSULIN LISPRO 100 UNITS/ML SUBCUT SCH ×3 (06:45→17:12)
[2019-01-08] MEDS ORDERED: ALENDRONATE SODIUM 35MG TABLET PO SCH (07:20)
[2019-01-08 07:36] LABS: HEMATOCRIT. 25.5 % (36.0-48.0); HEMOGLOBIN. 8.7 g/dL (12.0-16.0); MEAN CORPUSCULAR HEMOGLOBIN 33.4 pg (28.0-32.0); MEAN CORPUSCULAR VOLUME 97.7 fL (81.0-99.0); PLATELET 290 x1000/uL (130-400); RED BLOOD CELL COUNT 2.61 mill/uL (4.2-5.4); RED CELL DISTRIBUTION WIDTH 16.8 % (11.6-14.6)
[2019-01-08 08:00] VITALS: BP 134/42
[2019-01-08] MEDS ORDERED: ALENDRONATE SODIUM PO SCH (09:00)
[2019-01-08] MEDS: CALCITRIOL 0.25MCG CAPSULE PO SCH (09:11)
[2019-01-08] MEDS: ASPIRIN 81MG EC TABLET PO SCH (09:11)
[2019-01-08] MEDS: AMLODIPINE 5MG TABLET PO SCH (09:11)
[2019-01-08] MEDS: ENOXAPARIN 30MG/0.3ML SYR SUBCUT SCH (09:11)
[2019-01-08] MEDS: CALCIUM CARBONATE 1250MG TABLET (500MG ELEMENTAL CALCIUM) PO SCH (09:11)
[2019-01-08] MEDS: MULTIVITAMINS,THER W-MINERALS TABLET PO SCH (09:11)
[2019-01-08] MEDS: FUROSEMIDE 40MG TABLET PO SCH (09:11)
[2019-01-08] MEDS: DOCUSATE SODIUM 100MG CAPSULE PO SCH ×2 (09:12→13:13)
[2019-01-08] MEDS: BRIMONIDINE 0.2% OPHTH DROPS 5ML EACHEYE SCH (09:12)
[2019-01-08] MEDS: INSULIN GLARGINE UD 100 UNITS/ML SYR SUBCUT SCH (10:58)
[2019-01-08 12:00] VITALS: BP 114/42
[2019-01-08 12:28] LABS: PLATELET ESTIMATE NORMAL
[2019-01-08 16:00] VITALS: BP 145/47
[2019-01-08 17:20] VITALS: BP 145/47
== END 2019-01-08 18:12 | disposition home or self-care (01) | DRG 204 ==
LOC: ER 20:32 → 6WST 01-07 00:23 → EDBEDREQTM 01-07 00:26 → EDBEDREQ 01-07 00:26 → ENRESERV 01-07 01:28
PROVIDERS: ADMIT Internal Medicine; ATTEND Internal Medicine
DX: I95.1 Orthostatic hypotension (principal); E11.22 Type 2 diabetes mellitus with diabetic chronic kidney disease; I12.0 Hypertensive chronic kidney disease with stage 5 chronic kidney disease or end stage renal disease; N18.6 End stage renal disease; E78.5 Hyperlipidemia, unspecified; W18.30XA Fall on same level, unspecified, initial encounter; Z99.2 Dependence on renal dialysis; Y93.89 Activity, other specified; Y99.8 Other external cause status; Y92.002 Bathroom of unspecified non-institutional (private) residence as the place of occurrence of the external cause
CPT/HCPCS: 36415; 71045; 80048; 82962; 84484; 85007; 85027; 93005; 97162; 99285; J1650; J1815

== ENCOUNTER 2019-03-17 08:43 | Inpatient (IN) | payer MEDICAID, OTHER ==
[~2019-03-17] VITALS: Ht 152.4 cm; Wt 62.6 kg
[2019-03-17] MEDS ORDERED: ALBUTEROL (0.083%) 2.5MG/3ML NEB HHN STA (09:11)
[2019-03-17 09:21] LABS: BASOPHILS % 0.4 % (0.0-2.0); EOSINOPHILS % 2.1 % (0.0-5.0); HEMATOCRIT. 22.7 % (36.0-48.0); HEMOGLOBIN. 7.7 g/dL (12.0-16.0); LYMPHOCYTES % 12.6 % (20.0-50.0); MEAN CORPUSCULAR HEMOGLOBIN 34.5 pg (28.0-32.0); MEAN CORPUSCULAR VOLUME 100.9 fL (81.0-99.0); MEAN PLATELET VOLUME 8.8 fl (7.4-10.4); MONOCYTES % 7.3 % (2.0-8.0); NEUTROPHILS % 77.6 % (40.0-76.0); PLATELET 175 x1000/uL (130-400); RED BLOOD CELL COUNT 2.25 mill/uL (4.2-5.4); RED CELL DISTRIBUTION WIDTH 15.1 % (11.6-14.6)
[2019-03-17 09:28] LABS: CHLORIDE 100 mEq/L (98-107)
[2019-03-17 09:29] LABS: PARTIAL THROMBOPLASTIN TIME 35.6 sec (23.4-31.0); PROTHROMBIN TIME 10.7 sec (9.6-11.0)
[2019-03-17 09:34] LABS: PHOSPHORUS 3.7 mg/dL (2.5-4.9)
[2019-03-17] MEDS ORDERED: LEVOFLOXACIN 500MG PREMIX 100 ML IV ONE (10:00)
[2019-03-17] MEDS ORDERED: ACETAMINOPHEN 325MG TABLET PO PRN (10:30)
[2019-03-17] MEDS ORDERED: ONDANSETRON HCL 4MG/2ML INJ IV PRN (10:30)
[2019-03-17] MEDS ORDERED: CLONIDINE 0.1MG TABLET PO PRN (10:30)
[2019-03-17 10:38] LABS: TOTAL IRON BINDING CAPACITY 234 ug/dL (250-450)
[2019-03-17 12:30] VITALS: BP 154/45
[2019-03-17] MEDS ORDERED: DEXTROSE 50% WATER 50ML SYRINGE IV PRN (12:30)
[2019-03-17] MEDS: BLOOD SUGAR DIAGNOSTIC STRIP TEST SCH ×3 (13:00→20:42)
[2019-03-17] MEDS: INSULIN LISPRO 100 UNITS/ML SUBCUT SCH ×3 (13:20→20:42)
[2019-03-17] MEDS: LOSARTAN POTASSIUM 100 MG TABLET PO SCH (14:02)
[2019-03-17] MEDS ORDERED: IPRATROPIUM/ALBUTEROL 0.5-3(2.5)MG/3ML NEB HHN PRN (15:30)
[2019-03-17 15:55] VITALS: BP 166/54
[2019-03-17] MEDS: IPRATROPIUM/ALBUTEROL 0.5-3(2.5)MG/3ML NEB HHN PRN ×2 (16:08→21:38)
[2019-03-17] MEDS: AMLODIPINE 10MG TABLET PO SCH (17:00)
[2019-03-17 20:00] VITALS: BP 176/60
[2019-03-17] MEDS ORDERED: DOCUSATE SODIUM SUGAR FREE 100MG/10ML UDC NG SCH (22:00)
[2019-03-18] VITALS (9 sets, daily range): BP systolic 120–166; BP diastolic 40–63
[2019-03-18] MEDS: IRON SUCROSE COMPLEX 100 MG/5 ML ML IV SCH ×2 (03:32→21:02)
[2019-03-18] MEDS: DOCUSATE SODIUM SUGAR FREE 100MG/10ML UDC PO SCH ×4 (03:40→14:05)
[2019-03-18] MEDS: EPOETIN ALFA 10000UNITS/ML VIAL SUBCUT SCH ×2 (03:41→21:00)
[2019-03-18 05:57] LABS: BASOPHILS % 0.2 % (0.0-2.0); EOSINOPHILS % 0.6 % (0.0-5.0); MEAN CORPUSCULAR HEMOGLOBIN 34.5 pg (28.0-32.0); MEAN CORPUSCULAR VOLUME 99.5 fL (81.0-99.0); MEAN PLATELET VOLUME 8.5 fl (7.4-10.4); MONOCYTES % 7.9 % (2.0-8.0); NEUTROPHILS % 75.3 % (40.0-76.0); PLATELET 144 x1000/uL (130-400); RED BLOOD CELL COUNT 1.75 mill/uL (4.2-5.4); RED CELL DISTRIBUTION WIDTH 14.9 % (11.6-14.6)
[2019-03-18 06:50] LABS: HEMATOCRIT. 17.5 % (36.0-48.0)
[2019-03-18] MEDS: BLOOD SUGAR DIAGNOSTIC STRIP TEST SCH ×4 (06:58→20:33)
[2019-03-18] MEDS: INSULIN LISPRO 100 UNITS/ML SUBCUT SCH ×4 (07:50→21:00)
[2019-03-18] MEDS: LOSARTAN POTASSIUM 100 MG TABLET PO SCH (08:52)
[2019-03-18] MEDS: AMLODIPINE 10MG TABLET PO SCH ×2 (08:53→17:41)
[2019-03-18 20:28] LABS: HEMATOCRIT 21.6 % (36.0-48.0); HEMOGLOBIN 7.4 g/dL (12.0-16.0)
[2019-03-19] VITALS: BP 156/46
[2019-03-19 03:59] VITALS: BP 147/49
[2019-03-19] MEDS: BLOOD SUGAR DIAGNOSTIC STRIP TEST SCH ×2 (05:39→12:20)
[2019-03-19] MEDS: DOCUSATE SODIUM SUGAR FREE 100MG/10ML UDC PO SCH (05:41)
[2019-03-19] MEDS: INSULIN LISPRO 100 UNITS/ML SUBCUT SCH ×2 (05:43→12:32)
[2019-03-19] MEDS: LOSARTAN POTASSIUM 100 MG TABLET PO SCH (10:33)
[2019-03-19] MEDS: AMLODIPINE 10MG TABLET PO SCH (10:33)
[2019-03-19 15:10] VITALS: BP 147/63
== END 2019-03-19 16:04 | disposition home or self-care (01) | DRG 133 ==
LOC: ER 08:43 → 6WST 10:01 → EDBEDREQ 10:04 → EDBEDREQTM 10:04 → ENRESERV 10:47
PROVIDERS: ADMIT Internal Medicine; ATTEND Internal Medicine
PROC: 5A1D70Z Performance of Urinary Filtration, Intermittent, Less than 6 Hours Per Day (ICD-10-PCS; principal; 2019-03-17)
PROC: 30233N1 Transfusion of Nonautologous Red Blood Cells into Peripheral Vein, Percutaneous Approach (ICD-10-PCS; 2019-03-18)
DX: J96.00 Acute respiratory failure, unspecified whether with hypoxia or hypercapnia (principal); I13.2 Hypertensive heart and chronic kidney disease with heart failure and with stage 5 chronic kidney disease, or end stage renal disease; E11.22 Type 2 diabetes mellitus with diabetic chronic kidney disease; N18.6 End stage renal disease; D63.8 Anemia in other chronic diseases classified elsewhere; I50.9 Heart failure, unspecified; E78.5 Hyperlipidemia, unspecified; Z86.73 Personal history of transient ischemic attack (TIA), and cerebral infarction without residual deficits; Z91.15 Patient's noncompliance with renal dialysis; Z99.2 Dependence on renal dialysis; Z79.4 Long term (current) use of insulin; Z79.899 Other long term (current) drug therapy
CPT/HCPCS: 36415; 36430; 71045; 80048; 82270; 82728; 82962; 83540; 83550; 83735; 84100; 84145; 84484; 85014; 85018; 86850; 86900; 86920; 93005; 94640; 99285; J0885; J1815; J1956; J7611; J7620; P9016

== ENCOUNTER 2019-06-24 20:59 | Inpatient (IN) | payer OTHER ==
[~2019-06-24] VITALS: Ht 154.9 cm; Wt 58.5 kg
[~2019-06-24 20:59] MED LIST changes: -ALEN70TA46 PO; +ALEN70TA68 PO; -ASPI-1158 PO; -LOSA100T14 PO; +LOSA100T32 PO
[2019-06-24] MEDS ORDERED: ATROPINE SULFATE 1MG/ML VIAL IV ONE (23:00)
[2019-06-24 23:12] LABS: BASOPHILS % 0.3 % (0.0-2.0); EOSINOPHILS % 1.2 % (0.0-5.0); HEMATOCRIT. 22.8 % (36.0-48.0); HEMOGLOBIN. 7.7 g/dL (12.0-16.0); LYMPHOCYTES % 13.2 % (20.0-50.0); MEAN CORPUSCULAR HEMOGLOBIN 33.4 pg (28.0-32.0); MEAN CORPUSCULAR VOLUME 99.5 fL (81.0-99.0); MEAN PLATELET VOLUME 8.7 fl (7.4-10.4); MONOCYTES % 10.1 % (2.0-8.0); NEUTROPHILS % 75.2 % (40.0-76.0); PLATELET 166 x1000/uL (130-400); RED BLOOD CELL COUNT 2.29 mill/uL (4.2-5.4); RED CELL DISTRIBUTION WIDTH 16.6 % (11.6-14.6)
[2019-06-24] MEDS ORDERED: ATROPINE SULFATE 1MG/10ML SYR IV NR (23:15)
[2019-06-25] VITALS (36 sets, daily range): BP systolic 129–195; BP diastolic 36–83
[2019-06-25 00:31] LABS: CHLORIDE 99 mEq/L (98-107)
[2019-06-25] MEDS ORDERED: SODIUM POLYSTYRENE SULFONATE 15 G/60 ML BOT PO NR (00:45)
[2019-06-25] MEDS ORDERED: ALBUTEROL (0.083%) 2.5MG/3ML NEB HHN NR (00:45)
[2019-06-25] MEDS ORDERED: INSULIN REGULAR (HUMULIN R) 300UNITS/3ML IV NR (00:45)
[2019-06-25] MEDS ORDERED: DEXTROSE 50% WATER 50ML SYRINGE IV NR (01:00)
[2019-06-25] MEDS ORDERED: DOCUSATE SODIUM 100MG CAPSULE PO PRN (06:30)
[2019-06-25] MEDS ORDERED: IPRATROPIUM/ALBUTEROL 0.5-3(2.5)MG/3ML NEB INH PRN (06:30)
[2019-06-25] MEDS ORDERED: DEXTROSE 50% WATER 50ML SYRINGE IV PRN (06:30)
[2019-06-25] MEDS ORDERED: NA PHOS,M-B/NA PHOS,DI-BA ENEMA 118ML PR PRN (06:30)
[2019-06-25] MEDS ORDERED: ONDANSETRON HCL 4MG/2ML INJ IV PRN (06:30)
[2019-06-25] MEDS ORDERED: GUAIFENESIN 200MG/10ML SUGAR FREE UDC PO PRN (06:30)
[2019-06-25] MEDS ORDERED: DIPHENHYDRAMINE 50MG/ML VIAL IV PRN (06:30)
[2019-06-25] MEDS ORDERED: MORPHINE SULFATE 2 MG/ML CPJ (NOT FOR IM USE) IV PRN (06:30)
[2019-06-25] MEDS ORDERED: MAGNESIUM/ALUMINUM HYDROXIDE/SIMETHICONE 30ML UDC PO PRN (06:30)
[2019-06-25] MEDS ORDERED: ACETAMINOPHEN 325MG TABLET PO PRN (06:30)
[2019-06-25] MEDS ORDERED: CLONIDINE 0.1MG TABLET PO PRN (06:30)
[2019-06-25] MEDS ORDERED: LORAZEPAM 2MG/ML CPJ IV PRN (06:30)
[2019-06-25] MEDS ORDERED: HYDROCODONE/ACETAMINOPHEN 10/325MG TABLET PO PRN (06:30)
[2019-06-25 07:43] LABS: CHLORIDE 100 mEq/L (98-107)
[2019-06-25] MEDS: BLOOD SUGAR DIAGNOSTIC STRIP TEST SCH ×4 (07:50→21:22)
[2019-06-25 07:59] LABS: BASOPHILS % 0.3 % (0.0-2.0); EOSINOPHILS % 2.7 % (0.0-5.0); HEMATOCRIT. 21.1 % (36.0-48.0); HEMOGLOBIN. 7.3 g/dL (12.0-16.0); LYMPHOCYTES % 23.6 % (20.0-50.0); MEAN CORPUSCULAR HEMOGLOBIN 34.5 pg (28.0-32.0); MEAN PLATELET VOLUME 8.8 fl (7.4-10.4); MONOCYTES % 14.5 % (2.0-8.0); NEUTROPHILS % 58.9 % (40.0-76.0); PLATELET 138 x1000/uL (130-400); RED BLOOD CELL COUNT 2.13 mill/uL (4.2-5.4); RED CELL DISTRIBUTION WIDTH 17.9 % (11.6-14.6)
[2019-06-25] MEDS: INSULIN LISPRO 100 UNITS/ML SUBCUT SCH ×4 (08:20→21:26)
[2019-06-25] MEDS ORDERED: IOHEXOL-300 100 ML BOTTLE ONE (09:52)
[2019-06-25] MEDS: HYDRALAZINE 20MG/ML VIAL IV PRN (11:16)
[2019-06-25] MEDS ORDERED: SENN-170 PO (14:06)
[2019-06-25] MEDS ORDERED: ASPI-1393 PO (14:06)
[2019-06-25] MEDS: SODIUM CHLORIDE 0.9% INJ 3ML FLUSH IVF SCH ×2 (14:08→21:22)
[2019-06-25 16:36] LABS: CREATINE KINASE 60 IU/L (26-192)
[2019-06-25 16:37] LABS: CREATINE KINASE MB FRACTION < 1.0 ng/mL (0.5-3.6)
[2019-06-25 20:19] LABS: BASOPHILS % 0.2 % (0.0-2.0); EOSINOPHILS % 2.6 % (0.0-5.0); HEMATOCRIT. 23.2 % (36.0-48.0); HEMOGLOBIN. 7.9 g/dL (12.0-16.0); MEAN CORPUSCULAR HEMOGLOBIN 33.6 pg (28.0-32.0); MEAN CORPUSCULAR VOLUME 98.6 fL (81.0-99.0); MEAN PLATELET VOLUME 8.6 fl (7.4-10.4); MONOCYTES % 9.3 % (2.0-8.0); NEUTROPHILS % 73.9 % (40.0-76.0); PLATELET 140 x1000/uL (130-400); RED BLOOD CELL COUNT 2.35 mill/uL (4.2-5.4); RED CELL DISTRIBUTION WIDTH 17.6 % (11.6-14.6)
[2019-06-25 23:20] LABS: CREATINE KINASE 51 IU/L (26-192)
[2019-06-25 23:21] LABS: CREATINE KINASE MB FRACTION < 1.0 ng/mL (0.5-3.6)
[2019-06-26] VITALS (24 sets, daily range): BP systolic 125–180; BP diastolic 42–77
[2019-06-26] MEDS ORDERED: EPOETIN ALFA 10000UNITS/ML VIAL SUBCUT NR
[2019-06-26 05:19] LABS: BASOPHILS % 0.5 % (0.0-2.0); EOSINOPHILS % 3.8 % (0.0-5.0); HEMATOCRIT. 21.8 % (36.0-48.0); HEMOGLOBIN. 7.5 g/dL (12.0-16.0); MEAN CORPUSCULAR HEMOGLOBIN 33.8 pg (28.0-32.0); MEAN CORPUSCULAR VOLUME 98.9 fL (81.0-99.0); MEAN PLATELET VOLUME 8.3 fl (7.4-10.4); NEUTROPHILS % 65.7 % (40.0-76.0); PLATELET 135 x1000/uL (130-400); RED BLOOD CELL COUNT 2.21 mill/uL (4.2-5.4); RED CELL DISTRIBUTION WIDTH 17.2 % (11.6-14.6)
[2019-06-26] MEDS: SODIUM CHLORIDE 0.9% INJ 3ML FLUSH IVF SCH ×3 (05:25→22:00)
[2019-06-26] MEDS: IRON SUCROSE COMPLEX 100 MG/5 ML ML IV SCH (05:26)
[2019-06-26 05:32] LABS: CHLORIDE 106 mEq/L (98-107)
[2019-06-26 05:56] LABS: LDL CHOLESTEROL 65 mg/dL (5-100)
[2019-06-26 05:58] LABS: HDL CHOLESTEROL 66 mg/dL (40-59)
[2019-06-26] MEDS: BLOOD SUGAR DIAGNOSTIC STRIP TEST SCH ×4 (07:27→20:55)
[2019-06-26] MEDS: INSULIN LISPRO 100 UNITS/ML SUBCUT SCH ×4 (08:15→21:13)
[2019-06-26] MEDS: BENAZEPRIL 10MG TABLET PO SCH ×2 (08:21→20:50)
[2019-06-26] MEDS: HYDRALAZINE 20MG/ML VIAL IV PRN (16:18)
[2019-06-26] MEDS: SENNOSIDES 8.6MG TABLET PO SCH (16:38)
[2019-06-26] MEDS: FERROUS SULFATE 325MG TABLET PO SCH (17:21)
[2019-06-26] MEDS ORDERED: LACTULOSE 20G/30ML UDC PO NR (21:30)
[2019-06-27] VITALS (11 sets, daily range): BP systolic 148–190; BP diastolic 51–65
[2019-06-27] MEDS: HYDRALAZINE 20MG/ML VIAL IV PRN ×2 (05:42→07:59)
[2019-06-27] MEDS: IRON SUCROSE COMPLEX 100 MG/5 ML ML IV SCH (05:53)
[2019-06-27] MEDS: SODIUM CHLORIDE 0.9% INJ 3ML FLUSH IVF SCH (06:30)
[2019-06-27] MEDS: BLOOD SUGAR DIAGNOSTIC STRIP TEST SCH (06:43)
[2019-06-27] MEDS: INSULIN LISPRO 100 UNITS/ML SUBCUT SCH (07:04)
[2019-06-27 07:30] LABS: BASOPHILS % 0.3 % (0.0-2.0); EOSINOPHILS % 2.6 % (0.0-5.0); HEMATOCRIT. 24.4 % (36.0-48.0); HEMOGLOBIN. 8.6 g/dL (12.0-16.0); MEAN CORPUSCULAR VOLUME 97.1 fL (81.0-99.0); MEAN PLATELET VOLUME 8.1 fl (7.4-10.4); MONOCYTES % 10.9 % (2.0-8.0); NEUTROPHILS % 77.2 % (40.0-76.0); PLATELET 150 x1000/uL (130-400); RED BLOOD CELL COUNT 2.51 mill/uL (4.2-5.4)
[2019-06-27] MEDS: BENAZEPRIL 10MG TABLET PO SCH (08:00)
[2019-06-27] MEDS: FERROUS SULFATE 325MG TABLET PO SCH (08:00)
[2019-06-27] MEDS: SENNOSIDES 8.6MG TABLET PO SCH (08:00)
== END 2019-06-27 11:33 | disposition home or self-care (01) | DRG 133 ==
LOC: ER 21:44 → EDBEDREQ 06-25 00:10 → EDBEDREQTM 06-25 00:10 → CVICU 06-25 00:57 → EDBEDREQ 06-25 00:57 → EDBEDREQSVC 06-25 00:57 → ENRESERV 06-25 04:00 → 3WST 06-26 16:03
PROVIDERS: ADMIT Internal Medicine; ATTEND Internal Medicine
PROC: 5A1D70Z Performance of Urinary Filtration, Intermittent, Less than 6 Hours Per Day (ICD-10-PCS; 2019-06-25)
PROC: 5A1D70Z Performance of Urinary Filtration, Intermittent, Less than 6 Hours Per Day (ICD-10-PCS; principal; 2019-06-26)
DX: J96.00 Acute respiratory failure, unspecified whether with hypoxia or hypercapnia (principal); I13.2 Hypertensive heart and chronic kidney disease with heart failure and with stage 5 chronic kidney disease, or end stage renal disease; E46 Unspecified protein-calorie malnutrition; E11.22 Type 2 diabetes mellitus with diabetic chronic kidney disease; E87.5 Hyperkalemia; I44.1 Atrioventricular block, second degree; I27.20 Pulmonary hypertension, unspecified; N18.6 End stage renal disease; E66.9 Obesity, unspecified; R74.0 Nonspecific elevation of levels of transaminase and lactic acid dehydrogenase [LDH]; D64.9 Anemia, unspecified; M48.061 Spinal stenosis, lumbar region without neurogenic claudication; Z79.4 Long term (current) use of insulin; Z79.82 Long term (current) use of aspirin; Z79.899 Other long term (current) drug therapy; Z86.73 Personal history of transient ischemic attack (TIA), and cerebral infarction without residual deficits; Z99.2 Dependence on renal dialysis; Z68.24 Body mass index [BMI] 24.0-24.9, adult; I50.40 Unspecified combined systolic (congestive) and diastolic (congestive) heart failure
CPT/HCPCS: 36415; 70470; 71045; 80048; 80061; 82550; 82553; 82962; 83036; 83735; 83880; 84439; 84443; 84484; 85379; 93005; 93306; 93970; 94640; 96374; 96375; 99291; J0360; J0461; J0885; J1815; J7611; Q9967

== ENCOUNTER 2019-08-05 09:53 | Inpatient (IN) | payer MEDICAID ==
[~2019-08-05] VITALS: Ht 154.9 cm; Wt 59.0 kg
[~2019-08-05 09:53] MED LIST changes: +ASPI-1393 PO; -BRIM15DR2 EACHEYE; -CALC0.253 PO; -FURO20TA4 PO; -INSU100I28 SQ; -RANI150T7 PO; +SENN-170 PO
[2019-08-05] MEDS ORDERED: KETOROLAC 30MG/ML VIAL IV STA (10:29)
[2019-08-05] MEDS ORDERED: SODIUM CHLORIDE 0.9% 500 ML IV ONE (10:29)
[2019-08-05] MEDS ORDERED: METOCLOPRAMIDE HCL 10MG/2ML VIAL IV ONE (10:30)
[2019-08-05 11:01] LABS: BASOPHILS % 0.3 % (0.0-2.0); EOSINOPHILS % 2.4 % (0.0-5.0); HEMATOCRIT. 31.2 % (36.0-48.0); HEMOGLOBIN. 10.6 g/dL (12.0-16.0); LYMPHOCYTES % 18.9 % (20.0-50.0); MEAN CORPUSCULAR HEMOGLOBIN 33.5 pg (28.0-32.0); MEAN CORPUSCULAR VOLUME 98.8 fL (81.0-99.0); MEAN PLATELET VOLUME 8.3 fl (7.4-10.4); MONOCYTES % 9.8 % (2.0-8.0); NEUTROPHILS % 68.6 % (40.0-76.0); PLATELET 125 x1000/uL (130-400); RED BLOOD CELL COUNT 3.16 mill/uL (4.2-5.4); RED CELL DISTRIBUTION WIDTH 16.7 % (11.6-14.6)
[2019-08-05 11:08] LABS: CHLORIDE 97 mEq/L (98-107)
[2019-08-05] MEDS ORDERED: HYDRALAZINE HCL 50MG TABLET PO ONE (12:15)
[2019-08-05] MEDS ORDERED: HYDRALAZINE 20MG/ML VIAL IV ONE (13:45)
[2019-08-05 22:00] VITALS: BP 210/66
[2019-08-05 22:10] VITALS: BP 180/90
[2019-08-05] MEDS ORDERED: HYDRALAZINE 20MG/ML VIAL IV PRN (23:00)
[2019-08-05] MEDS ORDERED: ACETAMINOPHEN 325MG TABLET PO PRN (23:00)
[2019-08-06] VITALS: BP 142/57
[2019-08-06 04:00] VITALS: BP 110/56
[2019-08-06 06:26] LABS: HEMATOCRIT 28.9 % (36.0-48.0); MEAN CORPUSCULAR HEMOGLOBIN 34.2 pg (28.0-32.0); MEAN CORPUSCULAR VOLUME 98.8 fL (81.0-99.0); PLATELET 126 x1000/uL (130-400); RED BLOOD CELL COUNT 2.93 mill/uL (4.2-5.4); RED CELL DISTRIBUTION WIDTH 16.5 % (11.6-14.6)
[2019-08-06] MEDS: HYDRALAZINE HCL 50MG TABLET PO SCH ×3 (06:27→21:50)
[2019-08-06] MEDS ORDERED: ALENDRONATE SODIUM 35MG TABLET PO SCH (07:40)
[2019-08-06 08:10] VITALS: BP 179/53
[2019-08-06] MEDS ORDERED: FERROUS SULFATE 325MG TABLET PO SCH (09:00)
[2019-08-06] MEDS ORDERED: AMLODIPINE 5MG TABLET PO SCH (09:00)
[2019-08-06] MEDS: FERROUS SULFATE 325MG TABLET PO SCH (09:12)
[2019-08-06] MEDS: MULTIVITAMINS,THER W-MINERALS TABLET PO SCH (09:12)
[2019-08-06] MEDS: HEPARIN 5000 UNITS/ML VIAL SUBCUT SCH ×2 (09:12→21:00)
[2019-08-06] MEDS: CALCIUM CARBONATE 1250MG TABLET (500MG ELEMENTAL CALCIUM) PO SCH (09:16)
[2019-08-06] MEDS: ASPIRIN 81MG EC TABLET PO SCH (09:16)
[2019-08-06] MEDS: LOSARTAN POTASSIUM 100 MG TABLET PO SCH (09:17)
[2019-08-06] MEDS: DOCUSATE SODIUM 100MG CAPSULE PO SCH ×3 (09:17→17:58)
[2019-08-06] MEDS: SENNOSIDES 8.6MG TABLET PO SCH (09:22)
[2019-08-06 11:55] VITALS: BP 179/50
[2019-08-06 15:41] VITALS: BP 178/66
[2019-08-06] MEDS: IRON SUCROSE COMPLEX 100 MG/5 ML ML IV SCH (15:43)
[2019-08-06 17:48] LABS: BASOPHILS % 0.4 % (0.0-2.0); EOSINOPHILS % 0.4 % (0.0-5.0); HEMATOCRIT. 28.8 % (36.0-48.0); HEMOGLOBIN. 9.9 g/dL (12.0-16.0); LYMPHOCYTES % 9.1 % (20.0-50.0); MEAN CORPUSCULAR HEMOGLOBIN 33.9 pg (28.0-32.0); MEAN PLATELET VOLUME 8.7 fl (7.4-10.4); MONOCYTES % 8.5 % (2.0-8.0); NEUTROPHILS % 81.6 % (40.0-76.0); PLATELET 133 x1000/uL (130-400); RED BLOOD CELL COUNT 2.91 mill/uL (4.2-5.4); RED CELL DISTRIBUTION WIDTH 16.3 % (11.6-14.6)
[2019-08-06] MEDS: NIFEDIPINE XL 60MG TAB PO SCH (18:40)
[2019-08-06 20:00] VITALS: BP 177/56
[2019-08-06] MEDS ORDERED: EPOETIN ALFA 4000UNITS/ML VIAL SUBCUT SCH (21:00)
[2019-08-06] MEDS ORDERED: ATORVASTATIN CALCIUM 20MG TABLET PO SCH (21:00)
[2019-08-07] VITALS: BP 137/50
[2019-08-07 04:00] VITALS: BP 134/50
[2019-08-07] MEDS: HYDRALAZINE HCL 50MG TABLET PO SCH (06:04)
[2019-08-07 08:00] VITALS: BP 140/78
[2019-08-07] MEDS: DOCUSATE SODIUM 100MG CAPSULE PO SCH (08:09)
[2019-08-07] MEDS: IRON SUCROSE COMPLEX 100 MG/5 ML ML IV SCH (08:09)
[2019-08-07] MEDS: ASPIRIN 81MG EC TABLET PO SCH (08:10)
[2019-08-07] MEDS: HEPARIN 5000 UNITS/ML VIAL SUBCUT SCH (08:10)
[2019-08-07] MEDS: MULTIVITAMINS,THER W-MINERALS TABLET PO SCH (08:10)
[2019-08-07] MEDS: LOSARTAN POTASSIUM 100 MG TABLET PO SCH (08:10)
[2019-08-07] MEDS: SENNOSIDES 8.6MG TABLET PO SCH (08:10)
[2019-08-07] MEDS: CALCIUM CARBONATE 1250MG TABLET (500MG ELEMENTAL CALCIUM) PO SCH (08:10)
[2019-08-07] MEDS: FERROUS SULFATE 325MG TABLET PO SCH (08:10)
[2019-08-07] MEDS: NIFEDIPINE XL 60MG TAB PO SCH (08:11)
[2019-08-07 12:00] VITALS: BP 117/44
[2019-08-07] MEDS ORDERED: HYDROMORPHONE HCL/PF 2MG/ML CPJ IV SCH (12:15)
[2019-08-10] MEDS ORDERED: ERGOCALCIFEROL 50000UNITS CAPSULE PO SCH (09:00)
== END 2019-08-07 12:49 | disposition home or self-care (01) | DRG 199 ==
LOC: ER 10:06 → 7WST 18:19 → ENRESERV 21:30
PROVIDERS: ADMIT Internal Medicine; ATTEND Internal Medicine
DX: I16.0 Hypertensive urgency (principal); E46 Unspecified protein-calorie malnutrition; E11.22 Type 2 diabetes mellitus with diabetic chronic kidney disease; I50.9 Heart failure, unspecified; I13.2 Hypertensive heart and chronic kidney disease with heart failure and with stage 5 chronic kidney disease, or end stage renal disease; N18.6 End stage renal disease; M81.0 Age-related osteoporosis without current pathological fracture; D64.9 Anemia, unspecified; E78.5 Hyperlipidemia, unspecified; Z79.899 Other long term (current) drug therapy; Z79.82 Long term (current) use of aspirin; Z99.2 Dependence on renal dialysis; Z91.14 Patient's other noncompliance with medication regimen; Z86.73 Personal history of transient ischemic attack (TIA), and cerebral infarction without residual deficits; Z68.24 Body mass index [BMI] 24.0-24.9, adult
CPT/HCPCS: 36415; 71045; 80048; 83880; 84484; 85027; 86705; 93005; 99291; J0360; J0885; J1170; J1644; J1885; J2765; J7030

== ENCOUNTER 2019-12-16 16:55 | Emergency (ER) | payer MEDICAID ==
[~2019-12-16] VITALS: Ht 165.1 cm; Wt 80.0 kg
[~2019-12-16 16:55] MED LIST changes: -ASPI-1393 PO; +ASPI-1497 PO; +CALC0.253 PO; +OMEP20CA14 PO; +SIMV-43 PO; -SIMV20TA6 PO; +VITA1CAP MT
[2019-12-16 17:06] VITALS: BP 123/68
== END 2019-12-16 19:36 | disposition left against medical advice (07) ==
LOC: ER 16:55
DX: Z53.21 Procedure and treatment not carried out due to patient leaving prior to being seen by health care provider (principal); I12.0 Hypertensive chronic kidney disease with stage 5 chronic kidney disease or end stage renal disease; E11.22 Type 2 diabetes mellitus with diabetic chronic kidney disease; N18.6 End stage renal disease; Z99.2 Dependence on renal dialysis; Z79.82 Long term (current) use of aspirin

== ENCOUNTER 2019-12-17 08:52 | Emergency (ER) | payer MEDICAID ==
[~2019-12-17] VITALS: Ht 147.3 cm; Wt 46.0 kg
[2019-12-17 09:03] VITALS: BP 164/61
[2019-12-17] MEDS ORDERED: TETANUS, DIPHTHERIA, PERTUSSIS VAC/PF 0.5ML (>7YR OLD) IM ONE (10:15)
[2019-12-17] MEDS ORDERED: ACETAMINOPHEN 500MG TABLET PO ONE (10:15)
== END 2019-12-17 10:46 | disposition home or self-care (01) ==
LOC: ER 08:52
DX: S81.852A Open bite, left lower leg, initial encounter (principal); I10 Essential (primary) hypertension; E11.9 Type 2 diabetes mellitus without complications; Z79.899 Other long term (current) drug therapy; W54.0XXA Bitten by dog, initial encounter; Y93.89 Activity, other specified; Y92.89 Other specified places as the place of occurrence of the external cause; Y99.8 Other external cause status
CPT/HCPCS: 90471; 90715; 99283

== ENCOUNTER 2020-03-17 17:43 | Inpatient (IN) | payer MEDICAID ==
[~2020-03-17] VITALS: Ht 152.4 cm; Wt 58.5 kg
[2020-03-17] MEDS ORDERED: SODIUM CHLORIDE 0.9% 1,000 ML IV ONE (18:04)
[2020-03-17] MEDS ORDERED: SODIUM BICARBONATE 8.4% 1 MEQ/ML 50ML SYR IV ONE ×2 (18:15→19:00)
[2020-03-17] MEDS ORDERED: MORPHINE SULFATE 4 MG/ML CPJ (NOT FOR IM USE) IV ONE (18:15)
[2020-03-17] MEDS ORDERED: CALCIUM GLUCONATE 1,000 MG in DEXTROSE 5% WATER 50 ML IV ONE (18:15)
[2020-03-17 18:30] LABS: CHLORIDE 101 mEq/L (98-107)
[2020-03-17 18:31] LABS: BASOPHILS % 0.1 % (0.0-2.0); EOSINOPHILS % 1.2 % (0.0-5.0); HEMATOCRIT. 21.5 % (36.0-48.0); HEMOGLOBIN. 7.3 g/dL (12.0-16.0); LYMPHOCYTES % 19.5 % (20.0-50.0); MEAN CORPUSCULAR HEMOGLOBIN 35.2 pg (28.0-32.0); MEAN CORPUSCULAR VOLUME 102.9 fL (81.0-99.0); NEUTROPHILS % 72.2 % (40.0-76.0); PLATELET 155 x1000/uL (130-400); RED BLOOD CELL COUNT 2.09 mill/uL (4.2-5.4); RED CELL DISTRIBUTION WIDTH 16.3 % (11.6-14.6)
[2020-03-17 18:38] LABS: INR 1.1; PARTIAL THROMBOPLASTIN TIME 53.7 sec (23.4-31.0)
[2020-03-17] MEDS ORDERED: DEXTROSE 50% WATER 50ML SYRINGE IV ONE (19:00)
[2020-03-17] MEDS ORDERED: INSULIN REGULAR (HUMULIN R) 300UNITS/3ML IV ONE (19:00)
[2020-03-17] MEDS ORDERED: ALBUTEROL (0.083%) 2.5MG/3ML NEB HHN ONE (19:00)
[2020-03-17] MEDS ORDERED: SODIUM POLYSTYRENE SULFONATE 15 G/60 ML BOT PO ONE (19:00)
[2020-03-17] MEDS ORDERED: ALBUTEROL (0.5%) 2.5MG/0.5ML NEB HHN ONE (19:22)
[2020-03-17] MEDS ORDERED: IPRATROPIUM/ALBUTEROL 0.5-3(2.5)MG/3ML NEB HHN PRN (19:30)
[2020-03-17] MEDS ORDERED: ACETAMINOPHEN 325MG TABLET PO PRN (19:30)
[2020-03-17] MEDS ORDERED: HYDROCODONE/ACETAMINOPHEN 5/325MG TABLET PO PRN (19:30)
[2020-03-17] MEDS ORDERED: DOCUSATE SODIUM 100MG CAPSULE PO PRN (19:30)
[2020-03-17] MEDS ORDERED: HYDRALAZINE 20MG/ML VIAL IV ONE (19:30)
[2020-03-17] MEDS ORDERED: EPOETIN ALFA 10000UNITS/ML VIAL SUBCUT NR (23:30)
[2020-03-18] MEDS ORDERED: CLONIDINE 0.1MG TABLET PO PRN (04:45)
[2020-03-18] MEDS: ACETAMINOPHEN 325MG TABLET PO PRN ×2 (04:51→22:33)
[2020-03-18 04:54] LABS: BASOPHILS % 0.2 % (0.0-2.0); EOSINOPHILS % 0.8 % (0.0-5.0); HEMATOCRIT. 21.9 % (36.0-48.0); HEMOGLOBIN. 7.4 g/dL (12.0-16.0); LYMPHOCYTES % 11.3 % (20.0-50.0); MEAN CORPUSCULAR HEMOGLOBIN 34.5 pg (28.0-32.0); MEAN CORPUSCULAR VOLUME 101.8 fL (81.0-99.0); MEAN PLATELET VOLUME 8.5 fl (7.4-10.4); MONOCYTES % 7.7 % (2.0-8.0); PLATELET 157 x1000/uL (130-400); RED BLOOD CELL COUNT 2.15 mill/uL (4.2-5.4); RED CELL DISTRIBUTION WIDTH 16.8 % (11.6-14.6)
[2020-03-18 05:06] LABS: PHOSPHORUS 4.9 mg/dL (2.5-4.9)
[2020-03-18] MEDS: AMLODIPINE 5MG TABLET PO SCH ×2 (10:09→21:53)
[2020-03-18] MEDS ORDERED: HYDRALAZINE HCL 10MG TABLET PO SCH (13:00)
[2020-03-18] MEDS: HYDRALAZINE HCL 50MG TABLET PO SCH (17:30)
[2020-03-18] MEDS: ASPIRIN 81MG EC TABLET PO SCH (17:31)
[2020-03-18] MEDS: CALCITRIOL 0.25MCG CAPSULE PO SCH (17:31)
[2020-03-18] MEDS ORDERED: HYDRALAZINE 20MG/ML VIAL IV PRN (18:30)
[2020-03-18] MEDS: OMEPRAZOLE 20MG CAPSULE EXTENDED RELEASE PO SCH (18:39)
[2020-03-18 21:12] VITALS: BP 173/57
[2020-03-18] MEDS: ATORVASTATIN CALCIUM 20MG TABLET PO SCH (21:53)
[2020-03-18 22:00] VITALS: BP 137/50
[2020-03-18] MEDS ORDERED: DEXTROSE 50% WATER 50ML SYRINGE IV PRN (23:30)
[2020-03-18] MEDS ORDERED: EPOETIN ALFA 10000UNITS/ML VIAL SUBCUT NR (23:30)
[2020-03-19] VITALS (25 sets, daily range): BP systolic 131–196; BP diastolic 47–101
[2020-03-19] MEDS: OMEPRAZOLE 20MG CAPSULE EXTENDED RELEASE PO SCH (06:06)
[2020-03-19 06:46] LABS: BASOPHILS % 0.2 % (0.0-2.0); EOSINOPHILS % 0.4 % (0.0-5.0); LYMPHOCYTES % 13.4 % (20.0-50.0); MEAN CORPUSCULAR HEMOGLOBIN 34.2 pg (28.0-32.0); MEAN CORPUSCULAR VOLUME 100.8 fL (81.0-99.0); MEAN PLATELET VOLUME 8.4 fl (7.4-10.4); MONOCYTES % 8.1 % (2.0-8.0); NEUTROPHILS % 77.9 % (40.0-76.0); PLATELET 136 x1000/uL (130-400); RED BLOOD CELL COUNT 1.84 mill/uL (4.2-5.4); RED CELL DISTRIBUTION WIDTH 16.5 % (11.6-14.6)
[2020-03-19] MEDS ORDERED: BLOOD SUGAR DIAGNOSTIC STRIP TEST SCH (06:50)
[2020-03-19] MEDS ORDERED: INSULIN LISPRO 100 UNITS/ML SUBCUT SCH (07:20)
[2020-03-19 07:45] LABS: HEMOGLOBIN. 6.3 g/dL (12.0-16.0)
[2020-03-19 07:46] LABS: HEMATOCRIT. 18.6 % (36.0-48.0)
[2020-03-19] MEDS: HYDRALAZINE HCL 50MG TABLET PO SCH ×3 (09:00→16:34)
[2020-03-19] MEDS: AMLODIPINE 5MG TABLET PO SCH ×2 (09:00→22:04)
[2020-03-19 09:53] LABS: FOLIC ACID (FOLATE) SERUM >20 ng/mL ng/mL (>5.38)
[2020-03-19 10:05] LABS: VITAMIN B12 SERUM 495 pg/mL (211-911)
[2020-03-19] MEDS ORDERED: DEXTROSE 50% WATER 50ML SYRINGE IV PRN (10:30)
[2020-03-19] MEDS: SENNOSIDES 8.6MG TABLET PO SCH (11:09)
[2020-03-19] MEDS: CALCITRIOL 0.25MCG CAPSULE PO SCH (11:09)
[2020-03-19] MEDS: ASPIRIN 81MG EC TABLET PO SCH (11:09)
[2020-03-19] MEDS: BLOOD SUGAR DIAGNOSTIC STRIP TEST SCH ×3 (11:15→22:00)
[2020-03-19] MEDS: INSULIN LISPRO 100 UNITS/ML SUBCUT SCH ×3 (11:15→22:05)
[2020-03-19] MEDS ORDERED: HYDRALAZINE 20MG/ML VIAL IV PRN (18:30)
[2020-03-19 22:01] LABS: HEMATOCRIT 23.2 % (36.0-48.0); HEMOGLOBIN 8.1 g/dL (12.0-16.0)
[2020-03-19] MEDS: ATORVASTATIN CALCIUM 20MG TABLET PO SCH (22:04)
[2020-03-19] MEDS ORDERED: EPOETIN ALFA 10000UNITS/ML VIAL SUBCUT NR (23:00)
[2020-03-20] VITALS (12 sets, daily range): BP systolic 107–156; BP diastolic 35–76
[2020-03-20] MEDS: IRON SUCROSE COMPLEX 100 MG/5 ML ML IV SCH (03:50)
[2020-03-20] MEDS: OMEPRAZOLE 20MG CAPSULE EXTENDED RELEASE PO SCH (06:04)
[2020-03-20] MEDS: BLOOD SUGAR DIAGNOSTIC STRIP TEST SCH ×4 (06:08→21:15)
[2020-03-20 07:04] LABS: BASOPHILS % 0.2 % (0.0-2.0); HEMATOCRIT. 21.9 % (36.0-48.0); HEMOGLOBIN. 7.5 g/dL (12.0-16.0); LYMPHOCYTES % 14.2 % (20.0-50.0); MEAN CORPUSCULAR HEMOGLOBIN 33.3 pg (28.0-32.0); MEAN CORPUSCULAR VOLUME 97.7 fL (81.0-99.0); MEAN PLATELET VOLUME 8.8 fl (7.4-10.4); MONOCYTES % 11.1 % (2.0-8.0); NEUTROPHILS % 72.5 % (40.0-76.0); PLATELET 124 x1000/uL (130-400); RED BLOOD CELL COUNT 2.25 mill/uL (4.2-5.4); RED CELL DISTRIBUTION WIDTH 17.4 % (11.6-14.6)
[2020-03-20] MEDS: INSULIN LISPRO 100 UNITS/ML SUBCUT SCH ×4 (07:20→21:15)
[2020-03-20] MEDS: ASPIRIN 81MG EC TABLET PO SCH (09:20)
[2020-03-20] MEDS: SENNOSIDES 8.6MG TABLET PO SCH (09:20)
[2020-03-20] MEDS: CALCITRIOL 0.25MCG CAPSULE PO SCH (09:20)
[2020-03-20] MEDS: HYDRALAZINE HCL 50MG TABLET PO SCH ×3 (09:23→16:58)
[2020-03-20] MEDS: AMLODIPINE 5MG TABLET PO SCH ×2 (09:23→21:14)
[2020-03-20] MEDS: ATORVASTATIN CALCIUM 20MG TABLET PO SCH (21:13)
[2020-03-21] VITALS (10 sets, daily range): BP systolic 137–160; BP diastolic 50–82
[2020-03-21] MEDS: OMEPRAZOLE 20MG CAPSULE EXTENDED RELEASE PO SCH (06:35)
[2020-03-21] MEDS: IRON SUCROSE COMPLEX 100 MG/5 ML ML IV SCH (06:35)
[2020-03-21 07:02] LABS: BASOPHILS % 0.4 % (0.0-2.0); EOSINOPHILS % 2.1 % (0.0-5.0); HEMATOCRIT. 23.2 % (36.0-48.0); LYMPHOCYTES % 17.4 % (20.0-50.0); MEAN CORPUSCULAR HEMOGLOBIN 33.8 pg (28.0-32.0); MEAN CORPUSCULAR VOLUME 97.7 fL (81.0-99.0); MEAN PLATELET VOLUME 9.3 fl (7.4-10.4); MONOCYTES % 10.6 % (2.0-8.0); NEUTROPHILS % 69.5 % (40.0-76.0); PLATELET 136 x1000/uL (130-400); RED BLOOD CELL COUNT 2.38 mill/uL (4.2-5.4); RED CELL DISTRIBUTION WIDTH 16.6 % (11.6-14.6)
[2020-03-21] MEDS: INSULIN LISPRO 100 UNITS/ML SUBCUT SCH ×2 (07:20→12:25)
[2020-03-21] MEDS: BLOOD SUGAR DIAGNOSTIC STRIP TEST SCH ×2 (07:30→11:52)
[2020-03-21] MEDS: AMLODIPINE 5MG TABLET PO SCH (08:47)
[2020-03-21] MEDS: SENNOSIDES 8.6MG TABLET PO SCH (08:47)
[2020-03-21] MEDS: HYDRALAZINE HCL 50MG TABLET PO SCH ×2 (08:47→13:00)
[2020-03-21] MEDS: ASPIRIN 81MG EC TABLET PO SCH (08:47)
[2020-03-21] MEDS: CALCITRIOL 0.25MCG CAPSULE PO SCH (08:47)
[2020-03-21] MEDS ORDERED: ATOR20TA PO (12:46)
[2020-03-21] MEDS ORDERED: AMLO5TAB88 PO (12:46)
[2020-03-21] MEDS ORDERED: EPOETIN ALFA 10000UNITS/ML VIAL SUBCUT SCH (21:00)
== END 2020-03-21 17:00 | disposition home or self-care (01) | DRG 199 ==
LOC: ER 17:43 → 3WST 19:14 → ENRESERV 03-18 20:04
PROVIDERS: ADMIT Internal Medicine; ATTEND Internal Medicine
PROC: 5A1D70Z Performance of Urinary Filtration, Intermittent, Less than 6 Hours Per Day (ICD-10-PCS; 2020-03-17)
PROC: 30233N1 Transfusion of Nonautologous Red Blood Cells into Peripheral Vein, Percutaneous Approach (ICD-10-PCS; principal; 2020-03-19)
PROC: 02HV33Z Insertion of Infusion Device into Superior Vena Cava, Percutaneous Approach (ICD-10-PCS; 2020-03-19)
PROC: B548ZZA Ultrasonography of Superior Vena Cava, Guidance (ICD-10-PCS; 2020-03-19)
PROC: 5A1D70Z Performance of Urinary Filtration, Intermittent, Less than 6 Hours Per Day (ICD-10-PCS; 2020-03-19)
PROC: 5A1D70Z Performance of Urinary Filtration, Intermittent, Less than 6 Hours Per Day (ICD-10-PCS; 2020-03-21)
DX: I16.0 Hypertensive urgency (principal); J84.9 Interstitial pulmonary disease, unspecified; I50.43 Acute on chronic combined systolic (congestive) and diastolic (congestive) heart failure; E46 Unspecified protein-calorie malnutrition; D69.6 Thrombocytopenia, unspecified; E11.22 Type 2 diabetes mellitus with diabetic chronic kidney disease; N18.6 End stage renal disease; I27.29 Other secondary pulmonary hypertension; E87.5 Hyperkalemia; I13.2 Hypertensive heart and chronic kidney disease with heart failure and with stage 5 chronic kidney disease, or end stage renal disease; E83.41 Hypermagnesemia; E83.52 Hypercalcemia; K74.60 Unspecified cirrhosis of liver; E78.5 Hyperlipidemia, unspecified; D63.1 Anemia in chronic kidney disease; M48.061 Spinal stenosis, lumbar region without neurogenic claudication; R74.0 Nonspecific elevation of levels of transaminase and lactic acid dehydrogenase [LDH]; E66.9 Obesity, unspecified; R00.1 Bradycardia, unspecified; D53.9 Nutritional anemia, unspecified; D72.810 Lymphocytopenia; Z99.2 Dependence on renal dialysis; Z86.73 Personal history of transient ischemic attack (TIA), and cerebral infarction without residual deficits; Z79.899 Other long term (current) drug therapy; Z68.25 Body mass index [BMI] 25.0-25.9, adult; Z90.49 Acquired absence of other specified parts of digestive tract; Z79.82 Long term (current) use of aspirin
CPT/HCPCS: 36415; 71045; 76937; 80048; 80053; 82270; 82607; 82746; 82962; 83036; 83605; 83735; 83880; 84100; 84132; 84484; 85014; 85018; 85025; 86850; 86900; 86920; 93005; 99291; C1725; J0360; J0610; J0885; J1815; J2270; J3490; J7030; J7060; P9016

== ENCOUNTER 2020-04-21 19:50 | Inpatient (IN) | payer MEDICAID ==
[~2020-04-21] VITALS: Ht 162.6 cm; Wt 59.0 kg
[~2020-04-21 19:50] MED LIST changes: -AMLO5TAB4 PO; +AMLO5TAB88 PO; +ATOR20TA PO; -SIMV-43 PO
[2020-04-21] MEDS ORDERED: ONDANSETRON HCL 4MG/2ML INJ IV STA (20:13)
[2020-04-21] MEDS ORDERED: CEFTRIAXONE 1 G PREMIX 50 ML IV ONE (20:15)
[2020-04-21] MEDS ORDERED: AZITHROMYCIN 500 MG in DEXT 5% WATER 250 ML IV ONE (20:15)
[2020-04-21 22:06] LABS: BG BASE EXCESS 1.2 mmol/L (-2.0-2.0); BG CARBOXYHEMOGLOBIN 0.8 % (0.5-1.5); BG DEOXYHEMOGLOBIN 4.2 % (0.0-5.0); BG FRACTION INSPIRED OXYGEN 32; BG METHEMOGLOBIN 0.1 % (0.0-1.5); BG OXYGEN SATURATION 95.8 % (92.0-98.5); BG OXYHEMOGLOBIN 94.9 % (94.0-97.0); BG PCO2 36.5 mmHg (35.0-45.0); BG PH 7.454 (7.350-7.450); BG PO2 85.5 mmHg (75.0-100.0); BG SAMPLE SITE LEFT BRACHIAL; BG TOTAL HEMOGLOBIN 9.5 g/dL (12.0-18.0); BG VENT MODE NASAL CANNULA
[2020-04-21 22:40] LABS: BASOPHILS % 0.2 % (0.0-2.0); EOSINOPHILS % 1.2 % (0.0-5.0); HEMATOCRIT. 24.7 % (36.0-48.0); HEMOGLOBIN. 8.5 g/dL (12.0-16.0); LYMPHOCYTES % 9.1 % (20.0-50.0); MEAN CORPUSCULAR HEMOGLOBIN 34.4 pg (28.0-32.0); MEAN PLATELET VOLUME 8.6 fl (7.4-10.4); MONOCYTES % 6.7 % (2.0-8.0); NEUTROPHILS % 82.8 % (40.0-76.0); PLATELET 147 x1000/uL (130-400); RED BLOOD CELL COUNT 2.47 mill/uL (4.2-5.4); RED CELL DISTRIBUTION WIDTH 16.2 % (11.6-14.6)
[2020-04-21 22:44] LABS: CHLORIDE 101 mEq/L (98-107)
[2020-04-22] VITALS (42 sets, daily range): BP systolic 119–188; BP diastolic 48–113
[2020-04-22 05:47] LABS: BASOPHILS % 0.2 % (0.0-2.0); EOSINOPHILS % 1.2 % (0.0-5.0); HEMATOCRIT. 22.5 % (36.0-48.0); HEMOGLOBIN. 7.9 g/dL (12.0-16.0); LYMPHOCYTES % 13.2 % (20.0-50.0); MEAN CORPUSCULAR HEMOGLOBIN 34.8 pg (28.0-32.0); MEAN CORPUSCULAR VOLUME 99.1 fL (81.0-99.0); MEAN PLATELET VOLUME 8.6 fl (7.4-10.4); MONOCYTES % 7.5 % (2.0-8.0); NEUTROPHILS % 77.9 % (40.0-76.0); PLATELET 135 x1000/uL (130-400); RED BLOOD CELL COUNT 2.27 mill/uL (4.2-5.4); RED CELL DISTRIBUTION WIDTH 16.1 % (11.6-14.6)
[2020-04-22] MEDS ORDERED: CLONIDINE 0.1MG TABLET PO PRN ×2 (07:30)
[2020-04-22] MEDS ORDERED: DEXTROSE 50% WATER 50ML SYRINGE IV PRN (08:00)
[2020-04-22] MEDS ORDERED: FERROUS SULFATE 325MG TABLET PO SCH (09:30)
[2020-04-22] MEDS: ENOXAPARIN 30MG/0.3ML SYR SUBCUT SCH (10:18)
[2020-04-22] MEDS: LOSARTAN POTASSIUM 100 MG TABLET PO SCH (10:18)
[2020-04-22] MEDS: SENNOSIDES 8.6MG TABLET PO SCH (10:19)
[2020-04-22] MEDS: OMEPRAZOLE 20MG CAPSULE EXTENDED RELEASE PO SCH (10:19)
[2020-04-22] MEDS: DOCUSATE SODIUM 100MG CAPSULE PO SCH ×3 (10:19→17:04)
[2020-04-22] MEDS: HYDRALAZINE HCL 50MG TABLET PO SCH ×3 (10:19→21:14)
[2020-04-22] MEDS: ASPIRIN 81MG EC TABLET PO SCH (10:19)
[2020-04-22] MEDS: BLOOD SUGAR DIAGNOSTIC STRIP TEST SCH ×3 (11:29→21:14)
[2020-04-22] MEDS: INSULIN LISPRO 100 UNITS/ML SUBCUT SCH ×3 (12:31→21:00)
[2020-04-22] MEDS: IRON SUCROSE COMPLEX 100 MG/5 ML ML IV SCH (19:31)
[2020-04-22] MEDS ORDERED: EPOETIN ALFA 4000UNITS/ML VIAL SUBCUT NR (21:00)
[2020-04-22] MEDS: AZITHROMYCIN 500 MG in DEXT 5% WATER 250 ML IV SCH (21:09)
[2020-04-22] MEDS: CEFTRIAXONE 1 G PREMIX 50 ML IV SCH (21:10)
[2020-04-22] MEDS: AMLODIPINE 5MG TABLET PO SCH (21:13)
[2020-04-22] MEDS: ATORVASTATIN CALCIUM 20MG TABLET PO SCH (21:13)
[2020-04-23] VITALS (7 sets, daily range): BP systolic 101–183; BP diastolic 39–61
[2020-04-23] MEDS: HYDRALAZINE HCL 50MG TABLET PO SCH ×3 (06:17→21:05)
[2020-04-23] MEDS: BLOOD SUGAR DIAGNOSTIC STRIP TEST SCH ×4 (06:18→21:05)
[2020-04-23 07:30] LABS: BASOPHILS % 0.4 % (0.0-2.0); EOSINOPHILS % 3.5 % (0.0-5.0); LYMPHOCYTES % 12.5 % (20.0-50.0); MEAN CORPUSCULAR HEMOGLOBIN 34.3 pg (28.0-32.0); MEAN CORPUSCULAR VOLUME 98.8 fL (81.0-99.0); MEAN PLATELET VOLUME 9.7 fl (7.4-10.4); MONOCYTES % 10.3 % (2.0-8.0); NEUTROPHILS % 73.3 % (40.0-76.0); PLATELET 80 x1000/uL (130-400); RED BLOOD CELL COUNT 2.04 mill/uL (4.2-5.4); RED CELL DISTRIBUTION WIDTH 15.7 % (11.6-14.6)
[2020-04-23 08:04] LABS: HEMATOCRIT. 20.2 % (36.0-48.0)
[2020-04-23] MEDS: INSULIN LISPRO 100 UNITS/ML SUBCUT SCH ×4 (08:10→22:00)
[2020-04-23] MEDS: OMEPRAZOLE 20MG CAPSULE EXTENDED RELEASE PO SCH (08:46)
[2020-04-23] MEDS: IRON SUCROSE COMPLEX 100 MG/5 ML ML IV SCH (08:46)
[2020-04-23] MEDS: DOCUSATE SODIUM 100MG CAPSULE PO SCH ×3 (08:46→17:00)
[2020-04-23] MEDS: LOSARTAN POTASSIUM 100 MG TABLET PO SCH (08:47)
[2020-04-23] MEDS: SENNOSIDES 8.6MG TABLET PO SCH (08:47)
[2020-04-23] MEDS: AMLODIPINE 5MG TABLET PO SCH ×2 (08:47→21:04)
[2020-04-23] MEDS: ASPIRIN 81MG EC TABLET PO SCH (08:47)
[2020-04-23] MEDS: ENOXAPARIN 30MG/0.3ML SYR SUBCUT SCH (08:48)
[2020-04-23 14:28] LABS: TOTAL IRON BINDING CAPACITY 197 ug/dL (250-450)
[2020-04-23] MEDS: ATORVASTATIN CALCIUM 20MG TABLET PO SCH (21:04)
[2020-04-23] MEDS: CEFTRIAXONE 1 G PREMIX 50 ML IV SCH (21:04)
[2020-04-23] MEDS: AZITHROMYCIN 500 MG in DEXT 5% WATER 250 ML IV SCH (21:04)
[2020-04-23] MEDS ORDERED: ACETAMINOPHEN 325MG TABLET PO PRN (22:15)
[2020-04-23] MEDS ORDERED: HYDROCODONE/ACETAMINOPHEN 5/325MG TABLET PO PRN (22:15)
[2020-04-24] VITALS (10 sets, daily range): BP systolic 109–169; BP diastolic 43–88
[2020-04-24] MEDS: BLOOD SUGAR DIAGNOSTIC STRIP TEST SCH ×4 (06:27→20:34)
[2020-04-24] MEDS: INSULIN LISPRO 100 UNITS/ML SUBCUT SCH ×4 (06:27→20:34)
[2020-04-24] MEDS: OMEPRAZOLE 20MG CAPSULE EXTENDED RELEASE PO SCH (06:29)
[2020-04-24] MEDS: HYDRALAZINE HCL 50MG TABLET PO SCH ×3 (06:29→21:22)
[2020-04-24 07:56] LABS: BASOPHILS % 0.3 % (0.0-2.0); EOSINOPHILS % 4.5 % (0.0-5.0); HEMATOCRIT. 24.1 % (36.0-48.0); HEMOGLOBIN. 8.3 g/dL (12.0-16.0); MEAN CORPUSCULAR HEMOGLOBIN 33.8 pg (28.0-32.0); NEUTROPHILS % 64.2 % (40.0-76.0); PLATELET 111 x1000/uL (130-400); RED BLOOD CELL COUNT 2.46 mill/uL (4.2-5.4)
[2020-04-24] MEDS: AMLODIPINE 5MG TABLET PO SCH ×2 (09:00→20:24)
[2020-04-24] MEDS: LOSARTAN POTASSIUM 100 MG TABLET PO SCH (09:00)
[2020-04-24] MEDS: DOCUSATE SODIUM 100MG CAPSULE PO SCH ×3 (09:14→18:24)
[2020-04-24] MEDS: IRON SUCROSE COMPLEX 100 MG/5 ML ML IV SCH (09:14)
[2020-04-24] MEDS: SENNOSIDES 8.6MG TABLET PO SCH (09:15)
[2020-04-24] MEDS ORDERED: AZITHROMYCIN 500 MG TABLET PO SCH (20:00)
[2020-04-24] MEDS: ATORVASTATIN CALCIUM 20MG TABLET PO SCH (20:23)
[2020-04-24] MEDS: CEFTRIAXONE 1 G PREMIX 50 ML IV SCH (20:24)
[2020-04-25] VITALS: BP 202/68
[2020-04-25 00:30] VITALS: BP 175/56
[2020-04-25 04:00] VITALS: BP 165/57
[2020-04-25] MEDS: OMEPRAZOLE 20MG CAPSULE EXTENDED RELEASE PO SCH (06:07)
[2020-04-25] MEDS: BLOOD SUGAR DIAGNOSTIC STRIP TEST SCH (06:07)
[2020-04-25] MEDS: HYDRALAZINE HCL 50MG TABLET PO SCH (06:07)
[2020-04-25] MEDS: INSULIN LISPRO 100 UNITS/ML SUBCUT SCH (06:08)
[2020-04-25 08:00] VITALS: BP 165/48
[2020-04-25] MEDS: AMLODIPINE 5MG TABLET PO SCH (08:19)
[2020-04-25] MEDS: LOSARTAN POTASSIUM 100 MG TABLET PO SCH (08:19)
[2020-04-25] MEDS: IRON SUCROSE COMPLEX 100 MG/5 ML ML IV SCH (08:19)
[2020-04-25] MEDS: DOCUSATE SODIUM 100MG CAPSULE PO SCH (08:19)
[2020-04-25] MEDS: SENNOSIDES 8.6MG TABLET PO SCH (08:19)
[2020-04-25 09:51] VITALS: BP 165/48
[2020-04-26] MEDS ORDERED: FAMOTIDINE 20MG TABLET PO SCH (07:10)
== END 2020-04-25 11:50 | disposition home or self-care (01) | DRG 133 ==
LOC: ER 19:50 → MICUSO 22:38 → EDBEDREQTM 23:01 → EDBEDREQSVC 23:01 → EDBEDREQ 23:01 → MICUSO 04-22 04:50 → 7WST 04-22 23:20 → 8WST 04-23 20:20
PROVIDERS: ADMIT Internal Medicine; ATTEND Internal Medicine
PROC: 5A1D70Z Performance of Urinary Filtration, Intermittent, Less than 6 Hours Per Day (ICD-10-PCS; 2020-04-22)
PROC: 30233N1 Transfusion of Nonautologous Red Blood Cells into Peripheral Vein, Percutaneous Approach (ICD-10-PCS; principal; 2020-04-23)
PROC: 5A1D70Z Performance of Urinary Filtration, Intermittent, Less than 6 Hours Per Day (ICD-10-PCS; 2020-04-24)
DX: J96.01 Acute respiratory failure with hypoxia (principal); I13.2 Hypertensive heart and chronic kidney disease with heart failure and with stage 5 chronic kidney disease, or end stage renal disease; J18.9 Pneumonia, unspecified organism; E11.22 Type 2 diabetes mellitus with diabetic chronic kidney disease; E11.649 Type 2 diabetes mellitus with hypoglycemia without coma; D69.6 Thrombocytopenia, unspecified; I27.29 Other secondary pulmonary hypertension; N18.6 End stage renal disease; D50.0 Iron deficiency anemia secondary to blood loss (chronic); D63.1 Anemia in chronic kidney disease; E78.5 Hyperlipidemia, unspecified; E78.00 Pure hypercholesterolemia, unspecified; I16.0 Hypertensive urgency; D53.9 Nutritional anemia, unspecified; D72.810 Lymphocytopenia; Z20.828 Contact with and (suspected) exposure to other viral communicable diseases; I50.33 Acute on chronic diastolic (congestive) heart failure; K74.60 Unspecified cirrhosis of liver; M48.061 Spinal stenosis, lumbar region without neurogenic claudication; Z86.73 Personal history of transient ischemic attack (TIA), and cerebral infarction without residual deficits; Z99.2 Dependence on renal dialysis; Z79.84 Long term (current) use of oral hypoglycemic drugs; Z79.82 Long term (current) use of aspirin; Z79.899 Other long term (current) drug therapy
CPT/HCPCS: 36415; 36600; 71045; 80048; 80053; 82375; 82728; 82805; 82962; 83036; 83540; 83550; 83605; 83880; 84145; 84484; 85025; 86850; 86900; 86920; 93005; 96365; 99291; J0456; J0696; J0885; J1650; J1815; J2405; J7060; P9016; U0003-CS

== ENCOUNTER 2020-06-27 18:31 | Inpatient (IN) | payer MEDICAID ==
[2020-06-27] VITALS (11 sets, daily range): BP systolic 104–169; BP diastolic 32–107
[~2020-06-27] VITALS: Ht 157.5 cm; Wt 59.1 kg
[~2020-06-27 18:31] MED LIST changes: +DILT60TA35 PO; +FERR325T6 PO; +FURO-151 PO; +LOSA100T3 PO; +MULT-1146 PO; +OCD PO; +RANI150C12 PO; +SIMV-43 PO; +TIMO5DRO27 OP
[2020-06-27] MEDS ORDERED: SODIUM BICARBONATE 8.4% 1 MEQ/ML 50ML SYR IV ONE (19:00)
[2020-06-27] MEDS ORDERED: ALBUTEROL (0.083%) 2.5MG/3ML NEB HHN ONE (19:00)
[2020-06-27] MEDS ORDERED: INSULIN REGULAR (HUMULIN R) 300UNITS/3ML IV ONE (19:00)
[2020-06-27] MEDS ORDERED: CALCIUM CHLORIDE 1GM/10ML SYR IV ONE (19:00)
[2020-06-27] MEDS ORDERED: DEXTROSE 50% WATER 50ML SYRINGE IV ONE (19:00)
[2020-06-27 19:22] LABS: BASOPHILS % 0.5 % (0.0-2.0); EOSINOPHILS % 1.9 % (0.0-5.0); HEMATOCRIT. 25.1 % (36.0-48.0); HEMOGLOBIN. 8.7 g/dL (12.0-16.0); LYMPHOCYTES % 19.6 % (20.0-50.0); MEAN CORPUSCULAR HEMOGLOBIN 35.4 pg (28.0-32.0); MEAN CORPUSCULAR VOLUME 101.5 fL (81.0-99.0); MEAN PLATELET VOLUME 9.3 fl (7.4-10.4); MONOCYTES % 13.1 % (2.0-8.0); NEUTROPHILS % 64.9 % (40.0-76.0); PLATELET 124 x1000/uL (130-400); RED BLOOD CELL COUNT 2.47 mill/uL (4.2-5.4); RED CELL DISTRIBUTION WIDTH 15.7 % (11.6-14.6)
[2020-06-27 19:31] LABS: CHLORIDE 100 mEq/L (98-107)
[2020-06-27 19:32] LABS: INR 1.2; PROTHROMBIN TIME 12.1 sec (9.6-11.0)
[2020-06-27] MEDS ORDERED: ACETAMINOPHEN 325MG TABLET PO ONE (20:15)
[2020-06-27] MEDS ORDERED: ONDANSETRON HCL 4MG/2ML INJ IV PRN (21:45)
[2020-06-27] MEDS ORDERED: ACETAMINOPHEN 325MG TABLET PO PRN (21:45)
[2020-06-27] MEDS ORDERED: CLONIDINE 0.1MG TABLET PO PRN (21:45)
[2020-06-27] MEDS ORDERED: HYDROCODONE/ACETAMINOPHEN 5/325MG TABLET PO PRN (22:11)
[2020-06-27] MEDS ORDERED: EPOETIN ALFA 10000UNITS/ML VIAL SUBCUT NR (23:00)
[2020-06-27] MEDS ORDERED: DEXTROSE 50% WATER 50ML SYRINGE IV PRN (23:45)
[2020-06-27] MEDS: IPRATROPIUM/ALBUTEROL 0.5-3(2.5)MG/3ML NEB NEB SCH (23:58)
[2020-06-28] VITALS (59 sets, daily range): BP systolic 88–216; BP diastolic 29–101
[2020-06-28 00:23] LABS: CREATINE KINASE MB FRACTION 1.1 ng/mL (0.5-3.6)
[2020-06-28] MEDS: IRON SUCROSE COMPLEX 100 MG/5 ML ML IV SCH (03:20)
[2020-06-28] MEDS: IPRATROPIUM/ALBUTEROL 0.5-3(2.5)MG/3ML NEB NEB SCH ×6 (03:49→22:00)
[2020-06-28 05:30] LABS: BASOPHILS % 0.2 % (0.0-2.0); EOSINOPHILS % 1.3 % (0.0-5.0); HEMATOCRIT. 23.4 % (36.0-48.0); HEMOGLOBIN. 8.1 g/dL (12.0-16.0); LYMPHOCYTES % 16.1 % (20.0-50.0); MEAN CORPUSCULAR VOLUME 101.6 fL (81.0-99.0); MONOCYTES % 11.8 % (2.0-8.0); NEUTROPHILS % 70.6 % (40.0-76.0); PLATELET 126 x1000/uL (130-400); RED BLOOD CELL COUNT 2.31 mill/uL (4.2-5.4); RED CELL DISTRIBUTION WIDTH 15.5 % (11.6-14.6)
[2020-06-28] MEDS: BLOOD SUGAR DIAGNOSTIC STRIP TEST SCH ×4 (05:43→20:34)
[2020-06-28 05:45] LABS: CREATINE KINASE MB FRACTION 1.2 ng/mL (0.5-3.6)
[2020-06-28] MEDS: INSULIN LISPRO 100 UNITS/ML SUBCUT SCH ×4 (06:32→20:37)
[2020-06-28] MEDS ORDERED: DILTIAZEM HCL 60MG TABLET PO SCH (14:00)
[2020-06-28] MEDS ORDERED: LACTULOSE 20G/30ML UDC PO NR (14:30)
[2020-06-28] MEDS: DOCUSATE SODIUM 100MG CAPSULE PO SCH (16:53)
[2020-06-28] MEDS: HYDRALAZINE 20MG/ML VIAL IV SCH (17:45)
[2020-06-28] MEDS: AMLODIPINE 5MG TABLET PO SCH (20:31)
[2020-06-29] VITALS: BP 133/49
[2020-06-29] MEDS: IPRATROPIUM/ALBUTEROL 0.5-3(2.5)MG/3ML NEB NEB SCH ×6 (00:10→20:55)
[2020-06-29] MEDS: HYDRALAZINE 20MG/ML VIAL IV SCH ×4 (01:09→16:01)
[2020-06-29 04:30] VITALS: BP 143/50
[2020-06-29] MEDS: BLOOD SUGAR DIAGNOSTIC STRIP TEST SCH ×4 (06:20→21:00)
[2020-06-29] MEDS: INSULIN LISPRO 100 UNITS/ML SUBCUT SCH ×4 (07:42→22:50)
[2020-06-29 08:10] VITALS: BP 140/52
[2020-06-29] MEDS: AMLODIPINE 5MG TABLET PO SCH ×2 (09:00→21:00)
[2020-06-29] MEDS ORDERED: EPOETIN ALFA 10000UNITS/ML VIAL SUBCUT NR ×4 (09:00→23:00)
[2020-06-29] MEDS: DOCUSATE SODIUM 100MG CAPSULE PO SCH ×3 (10:05→16:56)
[2020-06-29] MEDS: IRON SUCROSE COMPLEX 100 MG/5 ML ML IV SCH (10:18)
[2020-06-29 12:04] VITALS: BP 143/46
[2020-06-29] MEDS: LIDOCAINE HCL 4% CREAM 76GM TUBE TP SCH ×2 (14:00→16:57)
[2020-06-29 16:00] VITALS: BP 141/44
[2020-06-29 20:33] VITALS: BP 112/37
[2020-06-30] MEDS: HYDRALAZINE 20MG/ML VIAL IV SCH ×3 (00:12→14:33)
[2020-06-30 00:48] VITALS: BP 149/55
[2020-06-30 04:00] VITALS: BP 162/53
[2020-06-30] MEDS: IPRATROPIUM/ALBUTEROL 0.5-3(2.5)MG/3ML NEB NEB SCH ×3 (04:10→15:30)
[2020-06-30] MEDS: BLOOD SUGAR DIAGNOSTIC STRIP TEST SCH ×2 (07:20→12:20)
[2020-06-30] MEDS: INSULIN LISPRO 100 UNITS/ML SUBCUT SCH ×2 (07:50→13:04)
[2020-06-30] MEDS: IRON SUCROSE COMPLEX 100 MG/5 ML ML IV SCH (08:35)
[2020-06-30 08:47] VITALS: BP 117/33
[2020-06-30] MEDS: AMLODIPINE 5MG TABLET PO SCH (10:17)
[2020-06-30] MEDS: DOCUSATE SODIUM 100MG CAPSULE PO SCH ×2 (10:17→12:49)
[2020-06-30] MEDS: LIDOCAINE HCL 4% CREAM 76GM TUBE TP SCH (10:17)
[2020-06-30 11:01] LABS: BASOPHILS % 0.2 % (0.0-2.0); EOSINOPHILS % 1.7 % (0.0-5.0); HEMATOCRIT. 25.7 % (36.0-48.0); HEMOGLOBIN. 8.9 g/dL (12.0-16.0); LYMPHOCYTES % 9.3 % (20.0-50.0); MEAN CORPUSCULAR HEMOGLOBIN 34.9 pg (28.0-32.0); MEAN CORPUSCULAR VOLUME 100.6 fL (81.0-99.0); MEAN PLATELET VOLUME 8.9 fl (7.4-10.4); MONOCYTES % 8.1 % (2.0-8.0); NEUTROPHILS % 80.7 % (40.0-76.0); PLATELET 141 x1000/uL (130-400); RED BLOOD CELL COUNT 2.55 mill/uL (4.2-5.4); RED CELL DISTRIBUTION WIDTH 15.5 % (11.6-14.6)
[2020-06-30 11:05] LABS: CHLORIDE 96 mEq/L (98-107)
[2020-06-30 12:00] VITALS: BP 129/38
[2020-06-30 15:24] VITALS: BP 137/45
== END 2020-06-30 17:09 | disposition home health service (06) | DRG 425 ==
LOC: ER 18:31 → MICUNO 20:15 → MERGE 20:15 → EDBEDREQ 20:19 → EDBEDREQTM 20:19 → ENRESERV 20:28 → 6WST 06-28 15:00
PROVIDERS: ADMIT Internal Medicine; ATTEND Internal Medicine
PROC: 5A1D70Z Performance of Urinary Filtration, Intermittent, Less than 6 Hours Per Day (ICD-10-PCS; principal; 2020-06-29)
DX: E87.5 Hyperkalemia (principal); N18.6 End stage renal disease; R00.1 Bradycardia, unspecified; D63.1 Anemia in chronic kidney disease; E78.5 Hyperlipidemia, unspecified; D69.6 Thrombocytopenia, unspecified; I25.10 Atherosclerotic heart disease of native coronary artery without angina pectoris; R79.89 Other specified abnormal findings of blood chemistry; I12.0 Hypertensive chronic kidney disease with stage 5 chronic kidney disease or end stage renal disease; K59.00 Constipation, unspecified; I27.21 Secondary pulmonary arterial hypertension; I48.21 Permanent atrial fibrillation; E11.22 Type 2 diabetes mellitus with diabetic chronic kidney disease; Z99.2 Dependence on renal dialysis; Z79.82 Long term (current) use of aspirin; Z79.899 Other long term (current) drug therapy; Z86.73 Personal history of transient ischemic attack (TIA), and cerebral infarction without residual deficits; I25.2 Old myocardial infarction; Z91.11 Patient's noncompliance with dietary regimen
CPT/HCPCS: 36415; 71045; 80048; 80053; 82550; 82553; 82962; 83036; 83605; 83735; 83880; 84145; 84484; 85025; 93005; 93306; 93970; 94640; 94644; 97162; 99291; J0360; J0885; J1815; J3490

== ENCOUNTER 2020-08-25 12:40 | Emergency (ER) | payer MEDICAID ==
[~2020-08-25] VITALS: Ht 167.6 cm; Wt 73.0 kg
[~2020-08-25 12:40] MED LIST changes: -FERR-71 PO; -FERR325T6 PO; -HYDR-4135 PO; -LOSA100T32 PO; -RANI150C12 PO; -SIMV-43 PO
[2020-08-25] MEDS ORDERED: ONDANSETRON HCL 4MG/2ML INJ IV STA (12:57)
[2020-08-25] MEDS ORDERED: MORPHINE SULFATE 4 MG/ML CPJ (NOT FOR IM USE) IV STA (12:57)
[2020-08-25] MEDS ORDERED: HYDROCODONE/ACETAMINOPHEN 5/325MG TABLET PO ONE (17:15)
[2020-08-25 17:38] LABS: BASOPHILS % 0.4 % (0.0-2.0); EOSINOPHILS % 2.7 % (0.0-5.0); HEMATOCRIT. 28.1 % (36.0-48.0); HEMOGLOBIN. 9.7 g/dL (12.0-16.0); LYMPHOCYTES % 14.8 % (20.0-50.0); MEAN CORPUSCULAR HEMOGLOBIN 35.4 pg (28.0-32.0); MEAN CORPUSCULAR VOLUME 102.7 fL (81.0-99.0); MEAN PLATELET VOLUME 9.5 fl (7.4-10.4); MONOCYTES % 11.2 % (2.0-8.0); NEUTROPHILS % 70.9 % (40.0-76.0); PLATELET 128 x1000/uL (130-400); RED BLOOD CELL COUNT 2.74 mill/uL (4.2-5.4)
[2020-08-25] MEDS: AMLODIPINE 10MG TABLET PO NR ×2 (17:52→17:59)
[2020-08-25 17:57] LABS: CHLORIDE 107 mEq/L (98-107)
[2020-08-25 18:37] LABS: INR 1.1; PROTHROMBIN TIME 11.6 sec (9.6-11.0)
[2020-08-25 18:38] LABS: CLARITY URINE CLEAR (CLEAR); COLOR URINE YELLOW (YELLOW); KETONES URINE NEGATIVE (NEGATIVE); LEUKOCYTE ESTERASE URINE NEGATIVE (NEGATIVE); NITRITE URINE NEGATIVE (NEGATIVE); OCCULT BLOOD URINE NEGATIVE (NEGATIVE); PH URINE 8.5 (4.5-8.0); PROTEIN URINE 3+ (NEGATIVE); SPECIFIC GRAVITY URINE 1.015 (1.005-1.030); UROBILINOGEN URINE 0.2 E.U./dL (0.2-1.0)
[2020-08-25 19:00] VITALS: BP 179/89
== END 2020-08-25 19:12 | disposition home or self-care (01) ==
LOC: ER 12:57
DX: G89.29 Other chronic pain (principal); M54.5 Low back pain; I12.0 Hypertensive chronic kidney disease with stage 5 chronic kidney disease or end stage renal disease; E11.22 Type 2 diabetes mellitus with diabetic chronic kidney disease; N18.6 End stage renal disease; Z99.2 Dependence on renal dialysis; E78.00 Pure hypercholesterolemia, unspecified; I25.10 Atherosclerotic heart disease of native coronary artery without angina pectoris; H40.9 Unspecified glaucoma; Z98.890 Other specified postprocedural states; D64.9 Anemia, unspecified; Z79.82 Long term (current) use of aspirin; Z79.899 Other long term (current) drug therapy
CPT/HCPCS: 36415; 72131; 73522; 80053; 81003; 84484; 85025; 85610; 93005; 96374; 96375; 99285; J2270; J2405

== ENCOUNTER 2020-09-11 09:48 | Inpatient (IN) | payer MEDICAID ==
[2020-09-11] VITALS (26 sets, daily range): BP systolic 138–205; BP diastolic 51–107
[~2020-09-11] VITALS: Ht 157.5 cm; Wt 59.9 kg
[2020-09-11 11:22] LABS: BASOPHILS % 0.7 % (0.0-2.0); EOSINOPHILS % 6.2 % (0.0-5.0); HEMATOCRIT. 30.6 % (36.0-48.0); HEMOGLOBIN. 10.4 g/dL (12.0-16.0); MEAN CORPUSCULAR HEMOGLOBIN 34.7 pg (28.0-32.0); MEAN CORPUSCULAR VOLUME 102.1 fL (81.0-99.0); MEAN PLATELET VOLUME 9.1 fl (7.4-10.4); MONOCYTES % 6.9 % (2.0-8.0); NEUTROPHILS % 74.2 % (40.0-76.0); PLATELET 234 x1000/uL (130-400); RED BLOOD CELL COUNT 2.99 mill/uL (4.2-5.4); RED CELL DISTRIBUTION WIDTH 15.7 % (11.6-14.6)
[2020-09-11 11:33] LABS: INR 1.1; PARTIAL THROMBOPLASTIN TIME 62.6 sec (23.4-31.0); PROTHROMBIN TIME 11.2 sec (9.6-11.0)
[2020-09-11] MEDS ORDERED: SODIUM BICARBONATE 4% (2.4MEQ) 5ML VIAL IV ONE (12:32)
[2020-09-11] MEDS ORDERED: LIDOCAINE HCL 1% 20ML VIAL (Pyxis) INJ ONE (12:33)
[2020-09-11] MEDS ORDERED: HEPARIN 1000 UNITS/ML 10ML ONE (12:34)
[2020-09-11] MEDS ORDERED: FENTANYL CITRATE/PF 50MCG/ML 2ML VIAL ONE (12:43)
[2020-09-11] MEDS ORDERED: CEFAZOLIN 1000MG PREMIX 50 ML IV ONE (12:43)
[2020-09-11] MEDS ORDERED: IOHEXOL-300 100 ML BOTTLE ONE (12:45)
[2020-09-11] MEDS ORDERED: NIFEDIPINE 10MG CAPSULE ONE ×2 (14:30→14:32)
[2020-09-11] MEDS ORDERED: NIFEDIPINE 10MG CAPSULE PO ONE (14:45)
[2020-09-11] MEDS ORDERED: HEPARIN 5000 UNITS/ML VIAL IV ONE (15:00)
[2020-09-11] MEDS ORDERED: CEFAZOLIN 1000MG PREMIX 50 ML IV NR (15:00)
[2020-09-11] MEDS ORDERED: HEPARIN 5000 UNITS/ML VIAL IV NR (15:15)
[2020-09-11] MEDS ORDERED: IOHEXOL-300 50 ML BOTTLE IV ONE (15:44)
[2020-09-11] MEDS ORDERED: FENTANYL CITRATE/PF 50MCG/ML 2ML VIAL IV NR (15:45)
[2020-09-11] MEDS ORDERED: EPOETIN ALFA-EPBX 4,000 UNIT/ML VIAL SUBCUT NR (21:00)
[2020-09-11] MEDS ORDERED: NITROGLYCERIN 0.4MG TABLET SL SL PRN (22:30)
[2020-09-11] MEDS ORDERED: VITAMIN D 50000 UNIT PO SCH (22:30)
[2020-09-11] MEDS ORDERED: CALC667C MT (22:35)
[2020-09-11] MEDS ORDERED: HYDR-4135 MT (22:35)
[2020-09-11] MEDS ORDERED: SIMV-43 MT (22:35)
[2020-09-11] MEDS ORDERED: NITR0.4T49 SL (22:35)
[2020-09-11] MEDS ORDERED: OMEP20CA14 MT (22:35)
[2020-09-11] MEDS ORDERED: FERR325T6 PO (22:35)
[2020-09-11] MEDS ORDERED: AMLODIPINE 5MG TABLET PO NR (23:00)
[2020-09-11] MEDS: HYDRALAZINE HCL 50MG TABLET PO SCH (23:03)
[2020-09-12] VITALS: BP 194/59
[2020-09-12 04:30] VITALS: BP 188/60
[2020-09-12] MEDS ORDERED: CLONIDINE 0.1MG TABLET PO PRN (06:15)
[2020-09-12 06:30] LABS: HEMATOCRIT 24.2 % (36.0-48.0); HEMOGLOBIN 8.3 g/dL (12.0-16.0); MEAN CORPUSCULAR HEMOGLOBIN 34.2 pg (28.0-32.0); MEAN CORPUSCULAR VOLUME 100.1 fL (81.0-99.0); PLATELET 190 x1000/uL (130-400); RED BLOOD CELL COUNT 2.41 mill/uL (4.2-5.4); RED CELL DISTRIBUTION WIDTH 14.8 % (11.6-14.6)
[2020-09-12] MEDS: OMEPRAZOLE 20MG CAPSULE EXTENDED RELEASE PO SCH (06:51)
[2020-09-12] MEDS ORDERED: FERROUS SULFATE 325MG TABLET PO SCH (07:50)
[2020-09-12] MEDS: HEPARIN 5000 UNITS/ML VIAL SUBCUT SCH ×2 (09:23→21:39)
[2020-09-12] MEDS: CALCIUM ACETATE 667MG CAPSULE PO SCH ×3 (09:23→17:48)
[2020-09-12] MEDS: IRON SUCROSE COMPLEX 100 MG/5 ML ML IV SCH (09:24)
[2020-09-12] MEDS: LOSARTAN POTASSIUM 100 MG TABLET PO SCH (09:25)
[2020-09-12] MEDS: DOCUSATE SODIUM 100MG CAPSULE PO SCH ×2 (09:26→17:48)
[2020-09-12] MEDS: ASPIRIN 81MG EC TABLET PO SCH (09:26)
[2020-09-12] MEDS: AMLODIPINE 5MG TABLET PO SCH ×2 (09:26→21:38)
[2020-09-12] MEDS: HYDRALAZINE HCL 50MG TABLET PO SCH ×3 (09:27→17:49)
[2020-09-12] MEDS: TRAMADOL 50MG TABLET PO PRN ×2 (12:55→21:38)
[2020-09-12] MEDS: LIDOCAINE 5% PATCH TOP SCH (19:04)
[2020-09-12 20:00] VITALS: BP 140/50
[2020-09-12 20:30] VITALS: BP 140/50
[2020-09-12] MEDS ORDERED: MEDICATION NOT ON FORMULARY EA (Simvastatin 1 TAB) MT SCH (21:00)
[2020-09-12] MEDS: ATORVASTATIN CALCIUM 10MG TABLET PO SCH (21:38)
[2020-09-13] VITALS: BP 158/51
[2020-09-13 04:30] VITALS: BP 144/50
[2020-09-13] MEDS: OMEPRAZOLE 20MG CAPSULE EXTENDED RELEASE PO SCH (06:32)
[2020-09-13 06:41] LABS: BASOPHILS % 0.5 % (0.0-2.0); EOSINOPHILS % 7.9 % (0.0-5.0); HEMATOCRIT. 22.3 % (36.0-48.0); HEMOGLOBIN. 7.5 g/dL (12.0-16.0); LYMPHOCYTES % 18.3 % (20.0-50.0); MEAN CORPUSCULAR VOLUME 101.1 fL (81.0-99.0); MEAN PLATELET VOLUME 8.7 fl (7.4-10.4); MONOCYTES % 13.4 % (2.0-8.0); NEUTROPHILS % 59.9 % (40.0-76.0); PLATELET 156 x1000/uL (130-400); RED BLOOD CELL COUNT 2.21 mill/uL (4.2-5.4); RED CELL DISTRIBUTION WIDTH 15.1 % (11.6-14.6)
[2020-09-13 08:00] VITALS: BP 154/54
[2020-09-13] MEDS: HYDRALAZINE HCL 50MG TABLET PO SCH ×3 (09:00→18:24)
[2020-09-13] MEDS: AMLODIPINE 5MG TABLET PO SCH ×2 (09:00→21:00)
[2020-09-13] MEDS: LOSARTAN POTASSIUM 100 MG TABLET PO SCH (09:00)
[2020-09-13] MEDS: LIDOCAINE 5% PATCH TOP SCH (09:40)
[2020-09-13] MEDS: CALCIUM ACETATE 667MG CAPSULE PO SCH ×3 (09:40→18:24)
[2020-09-13] MEDS: ASPIRIN 81MG EC TABLET PO SCH (09:41)
[2020-09-13] MEDS: DOCUSATE SODIUM 100MG CAPSULE PO SCH ×2 (09:41→18:24)
[2020-09-13] MEDS: IRON SUCROSE COMPLEX 100 MG/5 ML ML IV SCH (09:42)
[2020-09-13] MEDS: TRAMADOL 50MG TABLET PO PRN ×2 (09:42→18:25)
[2020-09-13] MEDS ORDERED: EPOETIN ALFA-EPBX 4,000 UNIT/ML VIAL SUBCUT NR (12:00)
[2020-09-13 12:18] VITALS: BP 141/46
[2020-09-13 16:02] VITALS: BP 130/50
[2020-09-13] MEDS ORDERED: AMLO5TAB4 MT (16:10)
[2020-09-13] MEDS ORDERED: HYDR100T26 MT (16:10)
[2020-09-13] MEDS ORDERED: IRON SUCROSE COMPLEX 100 MG/5 ML ML IV NR (20:30)
[2020-09-13] MEDS: ATORVASTATIN CALCIUM 10MG TABLET PO SCH (21:02)
[2020-09-13 21:29] VITALS: BP 147/78
[2020-09-16] MEDS ORDERED: ERGOCALCIFEROL 50000UNITS CAPSULE PO SCH (09:00)
== END 2020-09-13 21:30 | disposition home or self-care (01) | DRG 182 ==
LOC: ER 09:48 → OR 13:15 → 6WST 13:16 → ENRESERV 14:13
PROVIDERS: ADMIT Internal Medicine; ATTEND Internal Medicine
PROC: 05C90ZZ Extirpation of Matter from Right Brachial Vein, Open Approach (ICD-10-PCS; principal; 2020-09-11)
PROC: B51W1ZZ Fluoroscopy of Dialysis Shunt/Fistula using Low Osmolar Contrast (ICD-10-PCS; 2020-09-11)
PROC: 03773ZZ Dilation of Right Brachial Artery, Percutaneous Approach (ICD-10-PCS; 2020-09-11)
PROC: 05C93ZZ Extirpation of Matter from Right Brachial Vein, Percutaneous Approach (ICD-10-PCS; 2020-09-11)
PROC: 05CD0ZZ Extirpation of Matter from Right Cephalic Vein, Open Approach (ICD-10-PCS; 2020-09-11)
PROC: 03WY07Z Revision of Autologous Tissue Substitute in Upper Artery, Open Approach (ICD-10-PCS; 2020-09-11)
PROC: B54MZZA Ultrasonography of Right Upper Extremity Veins, Guidance (ICD-10-PCS; 2020-09-11)
PROC: 5A1D70Z Performance of Urinary Filtration, Intermittent, Less than 6 Hours Per Day (ICD-10-PCS; 2020-09-13)
DX: T82.868A Thrombosis due to vascular prosthetic devices, implants and grafts, initial encounter (principal); E11.22 Type 2 diabetes mellitus with diabetic chronic kidney disease; I13.11 Hypertensive heart and chronic kidney disease without heart failure, with stage 5 chronic kidney disease, or end stage renal disease; I27.20 Pulmonary hypertension, unspecified; I49.5 Sick sinus syndrome; N18.6 End stage renal disease; E87.5 Hyperkalemia; I16.0 Hypertensive urgency; E78.5 Hyperlipidemia, unspecified; I49.1 Atrial premature depolarization; D63.8 Anemia in other chronic diseases classified elsewhere; Z20.828 Contact with and (suspected) exposure to other viral communicable diseases; I48.91 Unspecified atrial fibrillation; I25.10 Atherosclerotic heart disease of native coronary artery without angina pectoris; D69.6 Thrombocytopenia, unspecified; Y71.2 Prosthetic and other implants, materials and accessory cardiovascular devices associated with adverse incidents; Z99.2 Dependence on renal dialysis; I25.2 Old myocardial infarction; Z86.73 Personal history of transient ischemic attack (TIA), and cerebral infarction without residual deficits; Z79.899 Other long term (current) drug therapy; Z82.3 Family history of stroke; Z82.49 Family history of ischemic heart disease and other diseases of the circulatory system; Y92.89 Other specified places as the place of occurrence of the external cause
CPT/HCPCS: 36415; 36905; 76937; 80048; 82962; 84484; 85025; 85027; 87426; 93005; 99152; 99153; 99285; C1725; C1766; C1769; C1887; C2630; J0690; J0885; J1644; J3010; J3490; J7040; Q9967; G0500

== ENCOUNTER 2020-09-15 10:59 | Inpatient (IN) | payer MEDICAID ==
[~2020-09-15] VITALS: Ht 160 cm; Wt 60.8 kg
[2020-09-15] VITALS (18 sets, daily range): BP systolic 137–166; BP diastolic 56–76
[~2020-09-15 10:59] MED LIST changes: +AMLO5TAB4 MT; -ATOR20TA PO; -CALC0.253 PO; +CALC667C MT; -DILT60TA35 PO; +FERR325T6 PO; -FURO-151 PO; +HYDR100T26 MT; -MULT-1183 PO; +NITR0.4T49 SL; -OCD PO; -OYSTER CALCIUM PO; -SENN-170 PO; +SIMV-43 MT; -TIMO5DRO27 OP; -VITA1CAP MT
[2020-09-15 12:00] LABS: HEMATOCRIT. 25.8 % (36.0-48.0); HEMOGLOBIN. 8.9 g/dL (12.0-16.0); MEAN CORPUSCULAR VOLUME 101.6 fL (81.0-99.0); MEAN PLATELET VOLUME 8.3 fl (7.4-10.4); PLATELET 188 x1000/uL (130-400); RED BLOOD CELL COUNT 2.54 mill/uL (4.2-5.4); RED CELL DISTRIBUTION WIDTH 15.3 % (11.6-14.6)
[2020-09-15] MEDS ORDERED: SODIUM CHLORIDE 0.9% 1,000 ML IV ONE (12:00)
[2020-09-15 12:07] LABS: CHLORIDE 104 mEq/L (98-107)
[2020-09-15] MEDS ORDERED: AZITHROMYCIN 500 MG in DEXT 5% WATER 250 ML IV SCH (12:45)
[2020-09-15] MEDS ORDERED: ASPIRIN 325MG TABLET PO ONE (12:45)
[2020-09-15] MEDS ORDERED: CEFTRIAXONE 1 G PREMIX 50 ML IV ONE (12:45)
[2020-09-15 13:08] LABS: NUCLEATED RED BLOOD CELLS 1 /100 WBC; PLATELET ESTIMATE NORMAL
[2020-09-15] MEDS ORDERED: FUROSEMIDE 100MG/10ML VIAL IVP ONE (14:45)
[2020-09-15] MEDS ORDERED: NITROGLYCERIN 50MG PREMIX 250 ML IV NR (14:45)
[2020-09-15 16:14] LABS: CLARITY URINE CLOUDY (CLEAR); KETONES URINE TRACE (NEGATIVE); LEUKOCYTE ESTERASE URINE 3+ (NEGATIVE); NITRITE URINE NEGATIVE (NEGATIVE); OCCULT BLOOD URINE NEGATIVE (NEGATIVE); PROTEIN URINE 3+ (NEGATIVE); SPECIFIC GRAVITY URINE 1.023 (1.005-1.030); UROBILINOGEN URINE 0.2 E.U./dL (0.2-1.0)
[2020-09-15 16:24] LABS: COLOR URINE DARK YELLOW (YELLOW)
[2020-09-15] MEDS ORDERED: HEPARIN 25,000 UNITS PREMIX 250 ML IV SCH ×2 (21:00→22:30)
[2020-09-15] MEDS: INSULIN LISPRO 100 UNITS/ML SUBCUT SCH (21:00)
[2020-09-15] MEDS ORDERED: AMLODIPINE 5MG TABLET PO SCH (21:00)
[2020-09-15] MEDS ORDERED: ONDANSETRON HCL 4MG/2ML INJ IV PRN (21:00)
[2020-09-15] MEDS ORDERED: DEXTROSE 50% WATER 50ML SYRINGE IV PRN (21:15)
[2020-09-15] MEDS: BLOOD SUGAR DIAGNOSTIC STRIP TEST SCH (22:03)
[2020-09-15] MEDS: LOSARTAN POTASSIUM 100 MG TABLET PO SCH (22:10)
[2020-09-15] MEDS: ASPIRIN 81MG EC TABLET PO SCH (22:10)
[2020-09-15] MEDS: ATORVASTATIN CALCIUM 40MG TABLET PO SCH (22:10)
[2020-09-15] MEDS ORDERED: HEPARIN 60 UNITS/KG BOLUS IV NR (22:30)
[2020-09-15] MEDS ORDERED: HEPARIN BOLUS PRN aPTT 30-44 IV (23:00)
[2020-09-15] MEDS ORDERED: HEPARIN BOLUS PRN aPTT <30 IV (23:00)
[2020-09-16] VITALS (52 sets, daily range): BP systolic 102–156; BP diastolic 43–98
[2020-09-16 00:03] LABS: INR 1.2; PARTIAL THROMBOPLASTIN TIME 59.8 sec (23.4-31.0); PROTHROMBIN TIME 12.8 sec (9.6-11.0)
[2020-09-16] MEDS: IPRATROPIUM/ALBUTEROL 0.5-3(2.5)MG/3ML NEB HHN SCH ×6 (00:45→20:19)
[2020-09-16] MEDS ORDERED: HEPARIN 25,000 UNITS PREMIX 250 ML IV SCH (01:00)
[2020-09-16 04:40] LABS: BASOPHILS % 0.6 % (0.0-2.0); EOSINOPHILS % 5.3 % (0.0-5.0); HEMATOCRIT. 22.9 % (36.0-48.0); HEMOGLOBIN. 7.8 g/dL (12.0-16.0); LYMPHOCYTES % 7.8 % (20.0-50.0); MEAN CORPUSCULAR HEMOGLOBIN 34.4 pg (28.0-32.0); MEAN CORPUSCULAR VOLUME 100.8 fL (81.0-99.0); MEAN PLATELET VOLUME 8.6 fl (7.4-10.4); MONOCYTES % 9.5 % (2.0-8.0); NEUTROPHILS % 76.8 % (40.0-76.0); PLATELET 170 x1000/uL (130-400); RED BLOOD CELL COUNT 2.28 mill/uL (4.2-5.4); RED CELL DISTRIBUTION WIDTH 14.7 % (11.6-14.6)
[2020-09-16] MEDS: BLOOD SUGAR DIAGNOSTIC STRIP TEST SCH ×4 (06:28→20:58)
[2020-09-16] MEDS: CALCIUM ACETATE 667MG CAPSULE PO SCH ×3 (07:05→16:53)
[2020-09-16] MEDS: INSULIN LISPRO 100 UNITS/ML SUBCUT SCH ×4 (07:06→21:00)
[2020-09-16] MEDS: TRAMADOL HCL/ACETAMINOPHEN 37.5/325MG TABLET PO PRN (07:55)
[2020-09-16] MEDS: ASPIRIN 81MG EC TABLET PO SCH (09:10)
[2020-09-16] MEDS: IRON SUCROSE COMPLEX 100 MG/5 ML ML IV SCH (09:10)
[2020-09-16] MEDS: HYDRALAZINE HCL 100MG TABLET PO SCH ×3 (09:10→16:53)
[2020-09-16] MEDS: DOCUSATE SODIUM 100MG CAPSULE PO SCH ×2 (09:11→16:53)
[2020-09-16] MEDS: LOSARTAN POTASSIUM 100 MG TABLET PO SCH (09:13)
[2020-09-16] MEDS: METOPROLOL TARTRATE 25MG TABLET PO SCH ×2 (12:51→20:58)
[2020-09-16] MEDS: ATORVASTATIN CALCIUM 40MG TABLET PO SCH (20:58)
[2020-09-16] MEDS: EPOETIN ALFA-EPBX 4,000 UNIT/ML VIAL SUBCUT SCH (20:59)
[2020-09-17] VITALS (14 sets, daily range): BP systolic 116–161; BP diastolic 37–74
[2020-09-17] MEDS: IPRATROPIUM/ALBUTEROL 0.5-3(2.5)MG/3ML NEB HHN SCH ×6 (00:15→22:17)
[2020-09-17] MEDS: BLOOD SUGAR DIAGNOSTIC STRIP TEST SCH ×4 (06:17→20:57)
[2020-09-17] MEDS: CALCIUM ACETATE 667MG CAPSULE PO SCH ×3 (06:17→17:52)
[2020-09-17] MEDS: INSULIN LISPRO 100 UNITS/ML SUBCUT SCH ×4 (07:00→21:07)
[2020-09-17] MEDS: IRON SUCROSE COMPLEX 100 MG/5 ML ML IV SCH (08:33)
[2020-09-17] MEDS: DOCUSATE SODIUM 100MG CAPSULE PO SCH ×2 (08:34→17:47)
[2020-09-17] MEDS: HYDRALAZINE HCL 100MG TABLET PO SCH ×3 (08:34→17:52)
[2020-09-17] MEDS: ASPIRIN 81MG EC TABLET PO SCH (08:34)
[2020-09-17] MEDS: METOPROLOL TARTRATE 25MG TABLET PO SCH ×2 (08:34→21:00)
[2020-09-17] MEDS: LOSARTAN POTASSIUM 100 MG TABLET PO SCH (08:34)
[2020-09-17] MEDS ORDERED: LACTULOSE 20G/30ML UDC PO NR (09:00)
[2020-09-17] MEDS ORDERED: AMLODIPINE 5MG TABLET PO SCH (09:45)
[2020-09-17] MEDS ORDERED: REGADENOSON 0.4 MG/5 ML IV ONE (12:15)
[2020-09-17] MEDS: ACETAMINOPHEN 325MG TABLET PO PRN (20:56)
[2020-09-17] MEDS: ATORVASTATIN CALCIUM 40MG TABLET PO SCH (20:57)
[2020-09-17] MEDS: EPOETIN ALFA-EPBX 4,000 UNIT/ML VIAL SUBCUT SCH (20:57)
[2020-09-17] MEDS: AMLODIPINE 5MG TABLET PO SCH (21:00)
[2020-09-17 23:35] LABS: BASOPHILS % 0.3 % (0.0-2.0); EOSINOPHILS % 6.5 % (0.0-5.0); HEMATOCRIT. 24.6 % (36.0-48.0); HEMOGLOBIN. 8.4 g/dL (12.0-16.0); LYMPHOCYTES % 11.4 % (20.0-50.0); MEAN CORPUSCULAR HEMOGLOBIN 34.7 pg (28.0-32.0); MEAN CORPUSCULAR VOLUME 102.4 fL (81.0-99.0); MEAN PLATELET VOLUME 8.6 fl (7.4-10.4); NEUTROPHILS % 68.8 % (40.0-76.0); PLATELET 178 x1000/uL (130-400); RED BLOOD CELL COUNT 2.41 mill/uL (4.2-5.4); RED CELL DISTRIBUTION WIDTH 14.8 % (11.6-14.6)
[2020-09-18 00:48] VITALS: BP 139/42
[2020-09-18] MEDS: IPRATROPIUM/ALBUTEROL 0.5-3(2.5)MG/3ML NEB HHN SCH ×6 (00:58→21:03)
[2020-09-18 04:00] VITALS: BP 132/50
[2020-09-18] MEDS: BLOOD SUGAR DIAGNOSTIC STRIP TEST SCH ×4 (06:10→21:05)
[2020-09-18 06:44] LABS: BASOPHILS % 0.5 % (0.0-2.0); EOSINOPHILS % 8.8 % (0.0-5.0); HEMATOCRIT. 26.7 % (36.0-48.0); HEMOGLOBIN. 9.2 g/dL (12.0-16.0); LYMPHOCYTES % 13.3 % (20.0-50.0); MEAN CORPUSCULAR VOLUME 102.3 fL (81.0-99.0); MEAN PLATELET VOLUME 8.8 fl (7.4-10.4); MONOCYTES % 14.7 % (2.0-8.0); NEUTROPHILS % 62.7 % (40.0-76.0); PLATELET 186 x1000/uL (130-400); RED BLOOD CELL COUNT 2.61 mill/uL (4.2-5.4); RED CELL DISTRIBUTION WIDTH 15.1 % (11.6-14.6)
[2020-09-18] MEDS: CALCIUM ACETATE 667MG CAPSULE PO SCH ×3 (07:50→17:27)
[2020-09-18] MEDS: INSULIN LISPRO 100 UNITS/ML SUBCUT SCH ×4 (07:50→21:00)
[2020-09-18 08:00] VITALS: BP 140/60
[2020-09-18] MEDS: IRON SUCROSE COMPLEX 100 MG/5 ML ML IV SCH (08:45)
[2020-09-18] MEDS: LOSARTAN POTASSIUM 100 MG TABLET PO SCH (09:00)
[2020-09-18] MEDS ORDERED: INFLUENZA VACCINE 05/PF 0.5 ML VIAL IM ONE (09:00)
[2020-09-18] MEDS: AMLODIPINE 5MG TABLET PO SCH ×2 (09:00→20:44)
[2020-09-18] MEDS: DOCUSATE SODIUM 100MG CAPSULE PO SCH ×2 (09:00→16:30)
[2020-09-18] MEDS: ASPIRIN 81MG EC TABLET PO SCH (09:00)
[2020-09-18] MEDS: HYDRALAZINE HCL 100MG TABLET PO SCH ×3 (09:00→16:31)
[2020-09-18] MEDS: METOPROLOL TARTRATE 25MG TABLET PO SCH ×2 (09:00→20:44)
[2020-09-18] MEDS ORDERED: REGADENOSON 0.4 MG/5 ML IV ONE (11:00)
[2020-09-18 12:00] VITALS: BP 127/50
[2020-09-18] MEDS: ACETAMINOPHEN 325MG TABLET PO PRN (14:45)
[2020-09-18 16:00] VITALS: BP 109/36
[2020-09-18] MEDS: TRAMADOL HCL/ACETAMINOPHEN 37.5/325MG TABLET PO PRN (16:31)
[2020-09-18] MEDS ORDERED: POTASSIUM CHLORIDE 20MEQ TABLET SR PO ONE (18:15)
[2020-09-18] MEDS: EPOETIN ALFA-EPBX 4,000 UNIT/ML VIAL SUBCUT SCH (19:43)
[2020-09-18 20:44] VITALS: BP 115/46
[2020-09-18] MEDS: ATORVASTATIN CALCIUM 40MG TABLET PO SCH (20:44)
[2020-09-19] MEDS: IPRATROPIUM/ALBUTEROL 0.5-3(2.5)MG/3ML NEB HHN SCH ×5 (00:33→16:11)
[2020-09-19 00:41] VITALS: BP 142/43
[2020-09-19 04:00] VITALS: BP 138/50
[2020-09-19] MEDS: BLOOD SUGAR DIAGNOSTIC STRIP TEST SCH ×3 (06:48→17:33)
[2020-09-19] MEDS: INSULIN LISPRO 100 UNITS/ML SUBCUT SCH ×3 (07:12→17:33)
[2020-09-19 07:35] LABS: BASOPHILS % 0.5 % (0.0-2.0); EOSINOPHILS % 10.4 % (0.0-5.0); HEMATOCRIT. 24.3 % (36.0-48.0); HEMOGLOBIN. 8.3 g/dL (12.0-16.0); LYMPHOCYTES % 15.5 % (20.0-50.0); MEAN CORPUSCULAR HEMOGLOBIN 34.5 pg (28.0-32.0); MEAN CORPUSCULAR VOLUME 101.7 fL (81.0-99.0); MEAN PLATELET VOLUME 8.5 fl (7.4-10.4); MONOCYTES % 11.6 % (2.0-8.0); PLATELET 178 x1000/uL (130-400); RED BLOOD CELL COUNT 2.39 mill/uL (4.2-5.4); RED CELL DISTRIBUTION WIDTH 15.1 % (11.6-14.6)
[2020-09-19 08:00] VITALS: BP 144/73
[2020-09-19] MEDS: ASPIRIN 81MG EC TABLET PO SCH (08:17)
[2020-09-19] MEDS: CALCIUM ACETATE 667MG CAPSULE PO SCH ×3 (08:17→17:33)
[2020-09-19] MEDS: IRON SUCROSE COMPLEX 100 MG/5 ML ML IV SCH (08:17)
[2020-09-19] MEDS: DOCUSATE SODIUM 100MG CAPSULE PO SCH ×2 (08:17→17:00)
[2020-09-19] MEDS: HYDRALAZINE HCL 100MG TABLET PO SCH ×3 (09:00→17:00)
[2020-09-19] MEDS: METOPROLOL TARTRATE 25MG TABLET PO SCH (09:00)
[2020-09-19] MEDS: AMLODIPINE 5MG TABLET PO SCH (09:00)
[2020-09-19] MEDS: LOSARTAN POTASSIUM 100 MG TABLET PO SCH (09:00)
[2020-09-19 12:00] VITALS: BP 100/53
[2020-09-19 15:53] VITALS: BP 110/77
[2020-09-19 16:00] VITALS: BP 128/42
== END 2020-09-19 17:56 | disposition home or self-care (01) | DRG 190 ==
LOC: ER 10:59 → MICUSO 14:45 → EDBEDREQ 14:50 → EDBEDREQSVC 14:50 → EDBEDREQTM 14:50 → ENRESERV 19:03 → MICUSO 21:25 → 6WST 09-17 10:13
PROVIDERS: ADMIT Internal Medicine; ATTEND Internal Medicine
PROC: 5A1D70Z Performance of Urinary Filtration, Intermittent, Less than 6 Hours Per Day (ICD-10-PCS; principal; 2020-09-15)
PROC: 5A1D70Z Performance of Urinary Filtration, Intermittent, Less than 6 Hours Per Day (ICD-10-PCS; 2020-09-17)
PROC: 5A1D70Z Performance of Urinary Filtration, Intermittent, Less than 6 Hours Per Day (ICD-10-PCS; 2020-09-19)
DX: I21.4 Non-ST elevation (NSTEMI) myocardial infarction (principal); J96.01 Acute respiratory failure with hypoxia; N18.6 End stage renal disease; I50.33 Acute on chronic diastolic (congestive) heart failure; I27.20 Pulmonary hypertension, unspecified; I16.0 Hypertensive urgency; E11.22 Type 2 diabetes mellitus with diabetic chronic kidney disease; E78.5 Hyperlipidemia, unspecified; D63.1 Anemia in chronic kidney disease; I13.2 Hypertensive heart and chronic kidney disease with heart failure and with stage 5 chronic kidney disease, or end stage renal disease; I20.9 Angina pectoris, unspecified; I48.91 Unspecified atrial fibrillation; I63.9 Cerebral infarction, unspecified; E87.5 Hyperkalemia; I44.2 Atrioventricular block, complete; I49.5 Sick sinus syndrome; Z20.828 Contact with and (suspected) exposure to other viral communicable diseases; E11.51 Type 2 diabetes mellitus with diabetic peripheral angiopathy without gangrene; Z86.73 Personal history of transient ischemic attack (TIA), and cerebral infarction without residual deficits; Z95.0 Presence of cardiac pacemaker; N39.0 Urinary tract infection, site not specified
CPT/HCPCS: 36415; 71045; 78452; 80048; 80053; 81003; 82962; 83036; 83605; 83735; 83880; 84484; 85025; 87635; 90686; 93005; 94640; 96365; 97162; 99291; A9500; J0456; J0696; J0885; J1644; J1815; J1940; J2785; J3490; J7030; J7060

== ENCOUNTER 2020-12-07 12:40 | Emergency (ER) | payer MEDICAID ==
[~2020-12-07] VITALS: Ht 152.4 cm; Wt 50.0 kg
[~2020-12-07 12:40] MED LIST changes: -ALEN70TA68 PO; +ALEN70TA79 PO
[2020-12-07 13:51] LABS: BG BASE EXCESS 7.1 mmol/L (-2.0-2.0); BG CARBOXYHEMOGLOBIN 0.1 % (0.5-1.5); BG DEOXYHEMOGLOBIN 2.9 % (0.0-5.0); BG HCO3 ACT 31.1 mmol/L (22.0-26.0); BG METHEMOGLOBIN 0.2 % (0.0-1.5); BG OXYGEN SATURATION 97.1 % (92.0-98.5); BG OXYHEMOGLOBIN 96.8 % (94.0-97.0); BG PCO2 41.9 mmHg (35.0-45.0); BG PH 7.488 (7.350-7.450); BG PO2 98.6 mmHg (75.0-100.0); BG SAMPLE SITE LEFT BRACHIAL; BG TOTAL HEMOGLOBIN 9.6 g/dL (12.0-18.0); BG VENT MODE ROOM AIR
[2020-12-07 14:18] LABS: BASOPHILS % 0.5 % (0.0-2.0); EOSINOPHILS % 3.1 % (0.0-5.0); HEMATOCRIT. 25.6 % (36.0-48.0); HEMOGLOBIN. 8.7 g/dL (12.0-16.0); LYMPHOCYTES % 21.2 % (20.0-50.0); MEAN CORPUSCULAR HEMOGLOBIN 35.2 pg (28.0-32.0); MEAN CORPUSCULAR VOLUME 103.5 fL (81.0-99.0); MEAN PLATELET VOLUME 8.3 fl (7.4-10.4); MONOCYTES % 11.8 % (2.0-8.0); NEUTROPHILS % 63.4 % (40.0-76.0); PLATELET 178 x1000/uL (130-400); RED BLOOD CELL COUNT 2.48 mill/uL (4.2-5.4); RED CELL DISTRIBUTION WIDTH 15.6 % (11.6-14.6)
[2020-12-07 14:27] LABS: CHLORIDE 96 mEq/L (98-107)
[2020-12-07 19:37] VITALS: BP 149/52
== END 2020-12-07 19:54 | disposition left against medical advice (07) ==
LOC: ER 13:29 → CANBEDREQ 12-08 06:41
DX: I50.9 Heart failure, unspecified (principal); E11.9 Type 2 diabetes mellitus without complications; I49.9 Cardiac arrhythmia, unspecified; Z99.2 Dependence on renal dialysis; Z79.82 Long term (current) use of aspirin; Z79.899 Other long term (current) drug therapy
CPT/HCPCS: 36415; 36600; 71045; 80053; 82375; 82805; 83605; 83880; 84484; 85025; 86850; 86900; 93005; 99285

== ENCOUNTER 2021-03-12 16:52 | Emergency (ER) | payer OTHER ==
[~2021-03-12] VITALS: Ht 160 cm; Wt 50.0 kg
[2021-03-12 19:36] LABS: HEMATOCRIT. 28.5 % (36.0-48.0); HEMOGLOBIN. 9.7 g/dL (12.0-16.0); MEAN CORPUSCULAR HEMOGLOBIN 34.9 pg (28.0-32.0); MEAN CORPUSCULAR VOLUME 102.9 fL (81.0-99.0); MEAN PLATELET VOLUME 8.4 fl (7.4-10.4); PLATELET 145 x1000/uL (130-400); RED BLOOD CELL COUNT 2.77 mill/uL (4.2-5.4); RED CELL DISTRIBUTION WIDTH 17.3 % (11.6-14.6)
[2021-03-12 19:38] LABS: CHLORIDE 95 mEq/L (98-107)
[2021-03-12 20:17] LABS: PLATELET ESTIMATE NORMAL
[2021-03-12] MEDS ORDERED: SODIUM POLYSTYRENE SULFONATE 15 G/60 ML BOT PO ONE (21:45)
[2021-03-12] MEDS ORDERED: EPOETIN ALFA-EPBX 4,000 UNIT/ML VIAL SUBCUT NR (23:00)
[2021-03-12] MEDS ORDERED: ACETAMINOPHEN 325MG TABLET PO ONE (23:30)
[2021-03-12] MEDS ORDERED: SODIUM POLYSTYRENE SULFONATE 15 G/60 ML BOT PO NR (23:45)
[2021-03-13] MEDS ORDERED: HYDRALAZINE 20MG/ML VIAL IV ONE (05:00)
[2021-03-13] MEDS ORDERED: LOSARTAN POTASSIUM 100 MG TABLET PO ONE (05:00)
[2021-03-13] MEDS ORDERED: CLONIDINE 0.1MG TABLET PO ONE (05:00)
[2021-03-13] MEDS ORDERED: AMLODIPINE 5MG TABLET PO ONE (05:00)
[2021-03-13 05:13] VITALS: BP 193/86
== END 2021-03-13 05:44 | disposition home or self-care (01) ==
LOC: ER 16:52
DX: I13.11 Hypertensive heart and chronic kidney disease without heart failure, with stage 5 chronic kidney disease, or end stage renal disease (principal); E11.22 Type 2 diabetes mellitus with diabetic chronic kidney disease; N18.6 End stage renal disease; K21.9 Gastro-esophageal reflux disease without esophagitis; E78.00 Pure hypercholesterolemia, unspecified; Z86.73 Personal history of transient ischemic attack (TIA), and cerebral infarction without residual deficits; Z95.0 Presence of cardiac pacemaker; Z99.2 Dependence on renal dialysis; Z91.15 Patient's noncompliance with renal dialysis; Z79.82 Long term (current) use of aspirin
CPT/HCPCS: 36415; 71045; 80053; 85025; 93005; 96374; 99285; J0360; J0885

== ENCOUNTER 2021-06-06 17:59 | Inpatient (IN) | payer MEDICAID, OTHER ==
[~2021-06-06] VITALS: Ht 152.4 cm; Wt 49.9 kg
[2021-06-06 19:36] LABS: BASOPHILS % 0.8 % (0.0-2.0); EOSINOPHILS % 4.9 % (0.0-5.0); HEMATOCRIT. 21.8 % (36.0-48.0); HEMOGLOBIN. 7.4 g/dL (12.0-16.0); MEAN CORPUSCULAR HEMOGLOBIN 34.2 pg (28.0-32.0); MEAN CORPUSCULAR VOLUME 100.7 fL (81.0-99.0); MEAN PLATELET VOLUME 8.3 fl (7.4-10.4); NEUTROPHILS % 77.3 % (40.0-76.0); PLATELET 183 x1000/uL (130-400); RED BLOOD CELL COUNT 2.17 mill/uL (4.2-5.4); RED CELL DISTRIBUTION WIDTH 15.1 % (11.6-14.6)
[2021-06-06 19:40] LABS: CHLORIDE 99 mEq/L (98-107)
[2021-06-06 19:42] LABS: INR 1.2
[2021-06-06] MEDS ORDERED: SODIUM POLYSTYRENE SULFONATE 15 G/60 ML BOT PO NR (20:30)
[2021-06-06] MEDS ORDERED: DEXTROSE 50% WATER 50ML SYRINGE IV NR (20:30)
[2021-06-06] MEDS ORDERED: PANTOPRAZOLE SODIUM 40 MG/VIAL IV NR (20:30)
[2021-06-06] MEDS ORDERED: INSULIN REGULAR (HUMULIN R) 300UNITS/3ML VIAL IV NR (20:30)
[2021-06-06] MEDS ORDERED: DOCUSATE SODIUM 100MG CAPSULE PO PRN (21:15)
[2021-06-06] MEDS ORDERED: ONDANSETRON HCL 4MG/2ML INJ IV PRN (21:15)
[2021-06-06] MEDS ORDERED: DEXTROSE 50% WATER 50ML SYRINGE IV PRN (21:15)
[2021-06-06] MEDS ORDERED: HYDROCODONE/ACETAMINOPHEN 5/325MG TABLET PO PRN (21:15)
[2021-06-06] MEDS ORDERED: GUAIFENESIN 200MG/10ML SUGAR FREE UDC PO PRN (21:15)
[2021-06-06] MEDS ORDERED: LORAZEPAM 2MG/ML CPJ IV PRN (21:15)
[2021-06-06] MEDS ORDERED: ACETAMINOPHEN 325MG TABLET PO PRN (21:15)
[2021-06-06] MEDS ORDERED: IPRATROPIUM/ALBUTEROL 0.5-3(2.5)MG/3ML NEB HHN PRN (21:15)
[2021-06-06] MEDS ORDERED: HYDRALAZINE 20MG/ML VIAL IV PRN (21:15)
[2021-06-06] MEDS ORDERED: MAGNESIUM/ALUMINUM HYDROXIDE/SIMETHICONE 30ML UDC PO PRN (21:15)
[2021-06-06] MEDS ORDERED: NALOXONE HCL 0.4MG/ML VIAL IV PRN (21:30)
[2021-06-06 22:00] VITALS: BP_SYST 156; BP_DIAS 57; BP_DIAS 64
[2021-06-06] MEDS: SODIUM CHLORIDE 0.9% INJ 3ML FLUSH IVF SCH (22:00)
[2021-06-07] VITALS (15 sets, daily range): BP systolic 118–172; BP diastolic 40–60
[2021-06-07] MEDS: BLOOD SUGAR DIAGNOSTIC STRIP TEST SCH ×4 (05:41→20:46)
[2021-06-07] MEDS: INSULIN LISPRO 100 UNITS/ML SUBCUT SCH ×4 (05:42→20:46)
[2021-06-07] MEDS: SODIUM CHLORIDE 0.9% INJ 3ML FLUSH IVF SCH ×3 (05:47→20:51)
[2021-06-07 07:28] LABS: BASOPHILS % 0.6 % (0.0-2.0); EOSINOPHILS % 5.6 % (0.0-5.0); LYMPHOCYTES % 11.7 % (20.0-50.0); MEAN CORPUSCULAR HEMOGLOBIN 32.2 pg (28.0-32.0); MEAN CORPUSCULAR VOLUME 93.6 fL (81.0-99.0); MONOCYTES % 12.1 % (2.0-8.0); PLATELET 143 x1000/uL (130-400); RED BLOOD CELL COUNT 2.18 mill/uL (4.2-5.4); RED CELL DISTRIBUTION WIDTH 20.9 % (11.6-14.6)
[2021-06-07 07:32] LABS: CHLORIDE 105 mEq/L (98-107)
[2021-06-07 07:50] LABS: HEMATOCRIT. 20.4 % (36.0-48.0)
[2021-06-07] MEDS: BENAZEPRIL 10MG TABLET PO SCH (15:44)
[2021-06-07] MEDS: IRON SUCROSE COMPLEX 100 MG/5 ML ML IV SCH (20:35)
[2021-06-07 21:24] LABS: HEMATOCRIT 21.8 % (36.0-48.0); HEMOGLOBIN 7.7 g/dL (12.0-16.0)
[2021-06-07 21:47] LABS: TOTAL IRON BINDING CAPACITY 260 ug/dL (250-450)
[2021-06-07 22:10] LABS: HEPATITIS B SURFACE ANTIGEN NEGATIVE
[2021-06-07 22:14] LABS: VITAMIN B12 SERUM 365 pg/mL (211-911)
[2021-06-07 22:25] LABS: FERRITIN 1872 ng/mL (10-291)
[2021-06-07] MEDS: CLONIDINE 0.1MG TABLET PO PRN (22:25)
[2021-06-07 22:40] LABS: HEPATITIS A AB IGM NEGATIVE (NEGATIVE)
[2021-06-08 00:04] VITALS: BP 128/68
[2021-06-08 04:00] VITALS: BP 133/50
[2021-06-08] MEDS: BLOOD SUGAR DIAGNOSTIC STRIP TEST SCH ×4 (05:44→20:07)
[2021-06-08] MEDS: SODIUM CHLORIDE 0.9% INJ 3ML FLUSH IVF SCH ×2 (05:44→13:49)
[2021-06-08] MEDS: INSULIN LISPRO 100 UNITS/ML SUBCUT SCH ×4 (05:44→21:00)
[2021-06-08 05:56] LABS: BASOPHILS % 0.4 % (0.0-2.0); EOSINOPHILS % 4.9 % (0.0-5.0); HEMATOCRIT. 22.8 % (36.0-48.0); LYMPHOCYTES % 12.1 % (20.0-50.0); MEAN CORPUSCULAR HEMOGLOBIN 32.4 pg (28.0-32.0); MEAN CORPUSCULAR VOLUME 92.5 fL (81.0-99.0); MONOCYTES % 10.9 % (2.0-8.0); NEUTROPHILS % 71.7 % (40.0-76.0); PLATELET 123 x1000/uL (130-400); RED BLOOD CELL COUNT 2.46 mill/uL (4.2-5.4); RED CELL DISTRIBUTION WIDTH 20.4 % (11.6-14.6)
[2021-06-08 08:00] VITALS: BP 165/56
[2021-06-08] MEDS: BENAZEPRIL 10MG TABLET PO SCH (09:20)
[2021-06-08] MEDS: CLONIDINE 0.1MG TABLET PO PRN (09:20)
[2021-06-08 12:00] VITALS: BP 142/48
[2021-06-08 16:00] VITALS: BP 151/55
[2021-06-08] MEDS: IRON SUCROSE COMPLEX 100 MG/5 ML ML IV SCH (17:52)
[2021-06-08 20:00] VITALS: BP 166/45
[2021-06-09] VITALS: BP 173/45
[2021-06-09] MEDS: CLONIDINE 0.1MG TABLET PO PRN (00:37)
[2021-06-09 04:00] VITALS: BP 134/45
[2021-06-09] MEDS: SODIUM CHLORIDE 0.9% INJ 3ML FLUSH IVF SCH ×3 (04:25→13:49)
[2021-06-09] MEDS: BLOOD SUGAR DIAGNOSTIC STRIP TEST SCH ×4 (04:49→21:51)
[2021-06-09] MEDS: INSULIN LISPRO 100 UNITS/ML SUBCUT SCH ×4 (05:03→21:59)
[2021-06-09 07:07] LABS: BASOPHILS % 0.4 % (0.0-2.0); EOSINOPHILS % 5.3 % (0.0-5.0); HEMATOCRIT. 21.3 % (36.0-48.0); HEMOGLOBIN. 7.4 g/dL (12.0-16.0); MEAN CORPUSCULAR HEMOGLOBIN 32.4 pg (28.0-32.0); MEAN CORPUSCULAR VOLUME 93.3 fL (81.0-99.0); MEAN PLATELET VOLUME 7.8 fl (7.4-10.4); MONOCYTES % 12.4 % (2.0-8.0); NEUTROPHILS % 68.9 % (40.0-76.0); PLATELET 124 x1000/uL (130-400); RED BLOOD CELL COUNT 2.29 mill/uL (4.2-5.4); RED CELL DISTRIBUTION WIDTH 20.1 % (11.6-14.6)
[2021-06-09] MEDS: BENAZEPRIL 10MG TABLET PO SCH (09:16)
[2021-06-09 12:00] VITALS: BP 146/41
[2021-06-09] MEDS: PANTOPRAZOLE SODIUM 40 MG/VIAL IV SCH ×2 (12:15→23:00)
[2021-06-09 16:00] VITALS: BP 160/50
[2021-06-09] MEDS: IRON SUCROSE COMPLEX 100 MG/5 ML ML IV SCH (18:34)
[2021-06-09 20:00] VITALS: BP 111/66
[2021-06-09] MEDS ORDERED: EPOETIN ALFA-EPBX 4,000 UNIT/ML VIAL SUBCUT NR (21:00)
[2021-06-09] MEDS: MORPHINE SULFATE 2 MG/ML CPJ (NOT FOR IM USE) IV PRN (21:18)
[2021-06-09] MEDS: DIPHENHYDRAMINE 50MG/ML VIAL IV PRN (21:33)
[2021-06-10] VITALS (7 sets, daily range): BP systolic 128–189; BP diastolic 48–68
[2021-06-10] MEDS: SODIUM CHLORIDE 0.9% INJ 3ML FLUSH IVF SCH ×3 (06:00→21:31)
[2021-06-10] MEDS: INSULIN LISPRO 100 UNITS/ML SUBCUT SCH ×4 (06:34→20:22)
[2021-06-10] MEDS: BLOOD SUGAR DIAGNOSTIC STRIP TEST SCH ×4 (06:34→20:28)
[2021-06-10 09:43] LABS: BASOPHILS % 0.3 % (0.0-2.0); EOSINOPHILS % 4.4 % (0.0-5.0); HEMATOCRIT. 28.6 % (36.0-48.0); HEMOGLOBIN. 10.1 g/dL (12.0-16.0); LYMPHOCYTES % 8.9 % (20.0-50.0); MEAN CORPUSCULAR HEMOGLOBIN 31.4 pg (28.0-32.0); MEAN CORPUSCULAR VOLUME 88.9 fL (81.0-99.0); MEAN PLATELET VOLUME 8.3 fl (7.4-10.4); MONOCYTES % 10.3 % (2.0-8.0); NEUTROPHILS % 76.1 % (40.0-76.0); PLATELET 127 x1000/uL (130-400); RED BLOOD CELL COUNT 3.22 mill/uL (4.2-5.4); RED CELL DISTRIBUTION WIDTH 21.5 % (11.6-14.6)
[2021-06-10] MEDS: PANTOPRAZOLE SODIUM 40 MG/VIAL IV SCH ×2 (09:44→20:29)
[2021-06-10] MEDS: BENAZEPRIL 10MG TABLET PO SCH (09:44)
[2021-06-10 09:55] LABS: INR 1.2; PROTHROMBIN TIME 12.6 sec (9.6-11.0)
[2021-06-10] MEDS ORDERED: KCL 20MEQ/100ML PREMIX 100 ML IV NR (11:00)
[2021-06-10] MEDS ORDERED: MIDAZOLAM HCL 5 MG/5 ML VIAL ONE (12:54)
[2021-06-10] MEDS ORDERED: FENTANYL CITRATE/PF 50MCG/ML 2ML VIAL ONE (12:54)
[2021-06-10] MEDS ORDERED: MIDAZOLAM HCL 5 MG/5 ML VIAL IV PRN (12:54)
[2021-06-10] MEDS: MORPHINE SULFATE 2 MG/ML CPJ (NOT FOR IM USE) IV PRN (21:14)
[2021-06-10] MEDS: DIPHENHYDRAMINE 50MG/ML VIAL IV PRN (21:29)
[2021-06-11 04:00] VITALS: BP 136/45
[2021-06-11] MEDS: SODIUM CHLORIDE 0.9% INJ 3ML FLUSH IVF SCH ×2 (05:52→14:00)
[2021-06-11] MEDS: BLOOD SUGAR DIAGNOSTIC STRIP TEST SCH ×4 (05:52→21:00)
[2021-06-11] MEDS: INSULIN LISPRO 100 UNITS/ML SUBCUT SCH ×4 (05:52→21:00)
[2021-06-11] MEDS: DIPHENHYDRAMINE 50MG/ML VIAL IV PRN (06:42)
[2021-06-11 06:57] LABS: BASOPHILS % 0.4 % (0.0-2.0); EOSINOPHILS % 6.3 % (0.0-5.0); HEMATOCRIT. 30.2 % (36.0-48.0); HEMOGLOBIN. 10.3 g/dL (12.0-16.0); LYMPHOCYTES % 13.3 % (20.0-50.0); MEAN CORPUSCULAR HEMOGLOBIN 30.9 pg (28.0-32.0); MEAN CORPUSCULAR VOLUME 90.8 fL (81.0-99.0); MEAN PLATELET VOLUME 8.3 fl (7.4-10.4); MONOCYTES % 11.4 % (2.0-8.0); NEUTROPHILS % 68.6 % (40.0-76.0); PLATELET 104 x1000/uL (130-400); RED BLOOD CELL COUNT 3.32 mill/uL (4.2-5.4); RED CELL DISTRIBUTION WIDTH 21.9 % (11.6-14.6)
[2021-06-11 08:00] VITALS: BP 168/54
[2021-06-11] MEDS: BENAZEPRIL 10MG TABLET PO SCH (09:00)
[2021-06-11] MEDS: PANTOPRAZOLE SODIUM 40 MG/VIAL IV SCH ×2 (09:44→17:50)
[2021-06-11 12:00] VITALS: BP 151/46
[2021-06-11 16:00] VITALS: BP 180/52
[2021-06-11 20:00] VITALS: BP 169/49
[2021-06-11] MEDS ORDERED: EPOETIN ALFA-EPBX 4,000 UNIT/ML VIAL SUBCUT NR (21:00)
[2021-06-12] VITALS: BP 140/64
[2021-06-12 04:00] VITALS: BP 137/53
[2021-06-12] MEDS: BLOOD SUGAR DIAGNOSTIC STRIP TEST SCH (06:21)
[2021-06-12] MEDS: SODIUM CHLORIDE 0.9% INJ 3ML FLUSH IVF SCH (06:21)
[2021-06-12] MEDS: INSULIN LISPRO 100 UNITS/ML SUBCUT SCH (07:40)
[2021-06-12 09:31] LABS: BASOPHILS % 0.3 % (0.0-2.0); HEMATOCRIT. 29.3 % (36.0-48.0); LYMPHOCYTES % 10.5 % (20.0-50.0); MEAN CORPUSCULAR HEMOGLOBIN 30.9 pg (28.0-32.0); MEAN CORPUSCULAR VOLUME 90.6 fL (81.0-99.0); MEAN PLATELET VOLUME 8.2 fl (7.4-10.4); MONOCYTES % 8.1 % (2.0-8.0); NEUTROPHILS % 77.1 % (40.0-76.0); PLATELET 135 x1000/uL (130-400); RED BLOOD CELL COUNT 3.24 mill/uL (4.2-5.4); RED CELL DISTRIBUTION WIDTH 21.4 % (11.6-14.6)
[2021-06-12] MEDS: PANTOPRAZOLE SODIUM 40 MG/VIAL IV SCH (09:37)
[2021-06-12] MEDS: BENAZEPRIL 10MG TABLET PO SCH (09:37)
[2021-06-12] MEDS ORDERED: BACTERIOSTATIC SODIUM CHLORIDE 0.9% 30ML VIAL IJ ONE (10:30)
[2021-06-12 10:55] VITALS: BP 141/69
== END 2021-06-12 12:40 | disposition home health service (06) | DRG 241 ==
LOC: ER 17:59 → ENRESERV 21:13 → 8WST 22:12
PROVIDERS: ADMIT Internal Medicine; ATTEND Internal Medicine
PROC: 30233N1 Transfusion of Nonautologous Red Blood Cells into Peripheral Vein, Percutaneous Approach (ICD-10-PCS; principal; 2021-06-07)
PROC: 05H633Z Insertion of Infusion Device into Left Subclavian Vein, Percutaneous Approach (ICD-10-PCS; 2021-06-07)
PROC: B547ZZA Ultrasonography of Left Subclavian Vein, Guidance (ICD-10-PCS; 2021-06-07)
PROC: 0DB78ZX Excision of Stomach, Pylorus, Via Natural or Artificial Opening Endoscopic, Diagnostic (ICD-10-PCS; 2021-06-10)
PROC: 5A1D70Z Performance of Urinary Filtration, Intermittent, Less than 6 Hours Per Day (ICD-10-PCS; 2021-06-10)
PROC: 5A1D70Z Performance of Urinary Filtration, Intermittent, Less than 6 Hours Per Day (ICD-10-PCS; 2021-06-11)
DX: K29.71 Gastritis, unspecified, with bleeding (principal); E46 Unspecified protein-calorie malnutrition; E11.22 Type 2 diabetes mellitus with diabetic chronic kidney disease; E87.5 Hyperkalemia; K22.2 Esophageal obstruction; I12.0 Hypertensive chronic kidney disease with stage 5 chronic kidney disease or end stage renal disease; D53.9 Nutritional anemia, unspecified; I51.7 Cardiomegaly; K74.60 Unspecified cirrhosis of liver; M48.56XA Collapsed vertebra, not elsewhere classified, lumbar region, initial encounter for fracture; N18.6 End stage renal disease; K44.9 Diaphragmatic hernia without obstruction or gangrene; I25.10 Atherosclerotic heart disease of native coronary artery without angina pectoris; K21.9 Gastro-esophageal reflux disease without esophagitis; Z20.822 Contact with and (suspected) exposure to COVID-19; E78.00 Pure hypercholesterolemia, unspecified; Z86.73 Personal history of transient ischemic attack (TIA), and cerebral infarction without residual deficits; Z90.49 Acquired absence of other specified parts of digestive tract; Z99.2 Dependence on renal dialysis; Z79.899 Other long term (current) drug therapy; Z79.82 Long term (current) use of aspirin; Z68.21 Body mass index [BMI] 21.0-21.9, adult; L81.4 Other melanin hyperpigmentation
CPT/HCPCS: 36415; 71045; 74176; 76700; 76937; 80048; 80053; 82270; 82607; 82728; 82746; 82962; 83036; 83540; 83550; 84484; 85014; 85018; 85025; 86705; 86709; 86803; 86850; 86900; 86920; 87340; 87426; 88305; 88312; 88313; 93005; 93970; 99285; C1725; C9113; J0360; J0885; J1200; J1815; J2250; J2270; J3010; J3480; J3490; P9016

== ENCOUNTER 2021-10-08 18:14 | Inpatient (IN) | payer MEDICAID, OTHER ==
[~2021-10-08] VITALS: Ht 152.4 cm; Wt 57.6 kg
[2021-10-09 00:49] LABS: HEMATOCRIT 26.1 % (36.0-48.0); HEMOGLOBIN 8.8 g/dL (12.0-16.0); MEAN CORPUSCULAR HEMOGLOBIN 34.7 pg (28.0-32.0); MEAN CORPUSCULAR VOLUME 103.1 fL (81.0-99.0); PLATELET 150 x1000/uL (130-400); RED BLOOD CELL COUNT 2.54 mill/uL (4.2-5.4); RED CELL DISTRIBUTION WIDTH 17.1 % (11.6-14.6)
[2021-10-09 01:10] LABS: CHLORIDE 104 mEq/L (98-107)
[2021-10-09] MEDS ORDERED: ALBUTEROL (0.083%) 2.5MG/3ML NEB HHN NR (01:30)
[2021-10-09] MEDS ORDERED: INSULIN REGULAR (HUMULIN R) 300UNITS/3ML VIAL IV NR (02:00)
[2021-10-09] MEDS ORDERED: SODIUM POLYSTYRENE SULFONATE 15 G/60 ML BOT PO NR (03:30)
[2021-10-09] MEDS: DEXTROSE 50% WATER 50ML SYRINGE IV NR ×2 (05:14→06:52)
[2021-10-09] MEDS: FUROSEMIDE 100MG/10ML VIAL IV NR (05:14)
[2021-10-09] MEDS: CALCIUM CHLORIDE 1GM/10ML SYR IV NR ×2 (05:14→06:52)
[2021-10-09] MEDS: SODIUM BICARBONATE 8.4% 1 MEQ/ML 50ML SYR IV NR ×2 (05:15→06:52)
[2021-10-09] MEDS ORDERED: ONDANSETRON HCL 4MG/2ML INJ IV PRN (08:45)
[2021-10-09] MEDS: NIFEDIPINE XL 60MG TAB PO SCH (09:40)
[2021-10-09 09:42] VITALS: BP 219/71
[2021-10-09] MEDS ORDERED: PNEUMOCOCCAL 23-VAL P-SAC VAC 0.5 ML IM ONE (10:30)
[2021-10-09 12:00] VITALS: BP 206/71
[2021-10-09] MEDS ORDERED: LOSARTAN POTASSIUM 100 MG TABLET PO SCH (12:45)
[2021-10-09] MEDS: HYDRALAZINE HCL 100MG TABLET PO SCH ×2 (13:29→21:11)
[2021-10-09 16:00] VITALS: BP 174/60
[2021-10-09] MEDS ORDERED: METOPROLOL TARTRATE 50MG TABLET PO SCH (16:45)
[2021-10-09] MEDS: IRON SUCROSE COMPLEX 100 MG/5 ML ML IV SCH (17:33)
[2021-10-09] MEDS: CLONIDINE 0.1MG TABLET PO PRN (17:33)
[2021-10-09] MEDS: BENAZEPRIL 10MG TABLET PO SCH (17:33)
[2021-10-09 20:00] VITALS: BP 138/45
[2021-10-09] MEDS ORDERED: EPOETIN ALFA-EPBX 4,000 UNIT/ML VIAL SUBCUT NR (21:00)
[2021-10-09 22:58] LABS: HEPATITIS B SURFACE ANTIGEN NEGATIVE
[2021-10-10] VITALS: BP 115/39
[2021-10-10 04:00] VITALS: BP 112/35
[2021-10-10] MEDS: HYDRALAZINE HCL 100MG TABLET PO SCH ×3 (05:35→22:00)
[2021-10-10 08:00] VITALS: BP 130/38
[2021-10-10] MEDS: BENAZEPRIL 10MG TABLET PO SCH (08:53)
[2021-10-10] MEDS: NIFEDIPINE XL 60MG TAB PO SCH (08:53)
[2021-10-10 10:47] LABS: INR 1.2; PROTHROMBIN TIME 13.1 sec (9.6-11.0)
[2021-10-10 10:49] LABS: CHLORIDE 104 mEq/L (98-107)
[2021-10-10 12:00] VITALS: BP 120/50
[2021-10-10] MEDS ORDERED: HEPARIN 1000 UNITS/ML 10ML ONE (14:24)
[2021-10-10] MEDS ORDERED: LIDOCAINE HCL 1% 20ML VIAL (Pyxis) INJ ONE (14:24)
[2021-10-10 16:00] VITALS: BP 122/45
[2021-10-10] MEDS: IRON SUCROSE COMPLEX 100 MG/5 ML ML IV SCH (16:02)
[2021-10-10 20:00] VITALS: BP 110/50
[2021-10-10] MEDS ORDERED: EPOETIN ALFA-EPBX 4,000 UNIT/ML VIAL SUBCUT NR (21:30)
[2021-10-11] VITALS (9 sets, daily range): BP systolic 142–175; BP diastolic 42–69
[2021-10-11] MEDS: HYDRALAZINE HCL 100MG TABLET PO SCH ×3 (06:01→22:35)
[2021-10-11] MEDS: ACETAMINOPHEN 325MG TABLET PO PRN ×2 (08:45→20:29)
[2021-10-11] MEDS: BENAZEPRIL 10MG TABLET PO SCH (08:46)
[2021-10-11] MEDS: NIFEDIPINE XL 60MG TAB PO SCH (08:46)
[2021-10-11] MEDS: IRON SUCROSE COMPLEX 100 MG/5 ML ML IV SCH (16:48)
[2021-10-11 16:56] LABS: BASOPHILS % 0.2 % (0.0-2.0); EOSINOPHILS % 1.9 % (0.0-5.0); LYMPHOCYTES % 10.4 % (20.0-50.0); MEAN CORPUSCULAR HEMOGLOBIN 34.3 pg (28.0-32.0); MEAN CORPUSCULAR VOLUME 103.3 fL (81.0-99.0); MEAN PLATELET VOLUME 9.4 fl (7.4-10.4); MONOCYTES % 10.3 % (2.0-8.0); NEUTROPHILS % 77.2 % (40.0-76.0); PLATELET 111 x1000/uL (130-400); RED BLOOD CELL COUNT 2.04 mill/uL (4.2-5.4); RED CELL DISTRIBUTION WIDTH 16.9 % (11.6-14.6)
[2021-10-11] MEDS ORDERED: EPOETIN ALFA-EPBX 4,000 UNIT/ML VIAL SUBCUT NR (21:00)
[2021-10-12] VITALS (8 sets, daily range): BP systolic 134–177; BP diastolic 40–69
[2021-10-12 01:19] LABS: HEMATOCRIT 23.1 % (36.0-48.0); HEMOGLOBIN 7.9 g/dL (12.0-16.0)
[2021-10-12] MEDS: CLONIDINE 0.1MG TABLET PO PRN (04:07)
[2021-10-12] MEDS: ACETAMINOPHEN 325MG TABLET PO PRN (05:51)
[2021-10-12] MEDS: HYDRALAZINE HCL 100MG TABLET PO SCH ×3 (05:52→21:07)
[2021-10-12] MEDS: NIFEDIPINE XL 60MG TAB PO SCH (09:07)
[2021-10-12] MEDS: BENAZEPRIL 10MG TABLET PO SCH (09:07)
[2021-10-12 10:37] LABS: BASOPHILS % 0.3 % (0.0-2.0); EOSINOPHILS % 1.6 % (0.0-5.0); HEMATOCRIT. 23.6 % (36.0-48.0); HEMOGLOBIN. 7.7 g/dL (12.0-16.0); LYMPHOCYTES % 8.7 % (20.0-50.0); MEAN CORPUSCULAR HEMOGLOBIN 32.3 pg (28.0-32.0); MEAN CORPUSCULAR VOLUME 99.3 fL (81.0-99.0); MEAN PLATELET VOLUME 9.3 fl (7.4-10.4); NEUTROPHILS % 80.4 % (40.0-76.0); PLATELET 102 x1000/uL (130-400); RED BLOOD CELL COUNT 2.37 mill/uL (4.2-5.4)
[2021-10-12] MEDS ORDERED: CEFTRIAXONE 1 G PREMIX 50 ML IV SCH (13:30)
[2021-10-12 13:33] LABS: PLATELET ESTIMATE DECREASED
[2021-10-12] MEDS: IRON SUCROSE COMPLEX 100 MG/5 ML ML IV SCH (16:16)
[2021-10-12] MEDS: CEFTRIAXONE 1,000 MG in DEXTROSE 5% WATER 50 ML IV SCH (16:17)
[2021-10-13] VITALS (24 sets, daily range): BP systolic 142–209; BP diastolic 45–77
[2021-10-13] MEDS: HYDRALAZINE HCL 100MG TABLET PO SCH ×3 (05:45→22:00)
[2021-10-13] MEDS ORDERED: HEPARIN 1000 UNITS/ML 10ML ONE (08:47)
[2021-10-13] MEDS ORDERED: IOHEXOL-300 100 ML BOTTLE ONE (08:47)
[2021-10-13] MEDS ORDERED: LIDOCAINE HCL 1% 20ML VIAL (Pyxis) INJ ONE (08:47)
[2021-10-13] MEDS ORDERED: FENTANYL CITRATE/PF 50MCG/ML 2ML VIAL ONE (09:13)
[2021-10-13] MEDS ORDERED: HEPARIN 5000 UNITS/ML VIAL IV ONE (10:00)
[2021-10-13] MEDS ORDERED: FENTANYL CITRATE/PF 50MCG/ML 2ML VIAL IV ONE (10:00)
[2021-10-13] MEDS: BENAZEPRIL 10MG TABLET PO SCH (10:29)
[2021-10-13] MEDS: NIFEDIPINE XL 60MG TAB PO SCH ×2 (10:29→21:13)
[2021-10-13] MEDS ORDERED: FENTANYL CITRATE/PF 50MCG/ML 2ML VIAL IV NR (10:30)
[2021-10-13] MEDS: CEFTRIAXONE 1,000 MG in DEXTROSE 5% WATER 50 ML IV SCH (16:54)
[2021-10-14] VITALS: BP 159/49
[2021-10-14 04:00] VITALS: BP 135/38
[2021-10-14] MEDS: HYDRALAZINE HCL 100MG TABLET PO SCH ×2 (05:44→13:24)
[2021-10-14 07:23] VITALS: BP 135/38
[2021-10-14 08:00] VITALS: BP 132/41
[2021-10-14] MEDS ORDERED: BENAZEPRIL 10MG TABLET PO SCH (09:00)
[2021-10-14] MEDS: NIFEDIPINE XL 60MG TAB PO SCH (10:31)
[2021-10-14 11:39] VITALS: BP 132/41
[2021-10-14 12:00] VITALS: BP 166/51
[2021-10-14] MEDS: CLONIDINE 0.1MG TABLET PO PRN (14:08)
== END 2021-10-14 14:30 | disposition home or self-care (01) | DRG 182 ==
LOC: ER 18:14 → 7EST 10-09 01:54 → ENRESERV 10-09 04:10
PROVIDERS: ADMIT Internal Medicine; ATTEND Internal Medicine
PROC: 05HY33Z Insertion of Infusion Device into Upper Vein, Percutaneous Approach (ICD-10-PCS; 2021-10-09)
PROC: B54MZZA Ultrasonography of Right Upper Extremity Veins, Guidance (ICD-10-PCS; 2021-10-09)
PROC: 02H633Z Insertion of Infusion Device into Right Atrium, Percutaneous Approach (ICD-10-PCS; 2021-10-10)
PROC: B518ZZA Fluoroscopy of Superior Vena Cava, Guidance (ICD-10-PCS; 2021-10-10)
PROC: 30233N1 Transfusion of Nonautologous Red Blood Cells into Peripheral Vein, Percutaneous Approach (ICD-10-PCS; 2021-10-11)
PROC: 5A1D70Z Performance of Urinary Filtration, Intermittent, Less than 6 Hours Per Day (ICD-10-PCS; 2021-10-11)
PROC: 5A1D70Z Performance of Urinary Filtration, Intermittent, Less than 6 Hours Per Day (ICD-10-PCS; 2021-10-12)
PROC: 03CY3ZZ Extirpation of Matter from Upper Artery, Percutaneous Approach (ICD-10-PCS; principal; 2021-10-13)
PROC: B51M1ZZ Fluoroscopy of Right Upper Extremity Veins using Low Osmolar Contrast (ICD-10-PCS; 2021-10-13)
PROC: B31H1ZZ Fluoroscopy of Right Upper Extremity Arteries using Low Osmolar Contrast (ICD-10-PCS; 2021-10-13)
PROC: B5181ZZ Fluoroscopy of Superior Vena Cava using Low Osmolar Contrast (ICD-10-PCS; 2021-10-13)
PROC: B31N1ZZ Fluoroscopy of Other Upper Arteries using Low Osmolar Contrast (ICD-10-PCS; 2021-10-13)
PROC: 05753ZZ Dilation of Right Subclavian Vein, Percutaneous Approach (ICD-10-PCS; 2021-10-13)
PROC: 5A1D70Z Performance of Urinary Filtration, Intermittent, Less than 6 Hours Per Day (ICD-10-PCS; 2021-10-13)
DX: T82.868A Thrombosis due to vascular prosthetic devices, implants and grafts, initial encounter (principal); I12.0 Hypertensive chronic kidney disease with stage 5 chronic kidney disease or end stage renal disease; E44.0 Moderate protein-calorie malnutrition; D63.1 Anemia in chronic kidney disease; N18.6 End stage renal disease; E11.22 Type 2 diabetes mellitus with diabetic chronic kidney disease; Y71.2 Prosthetic and other implants, materials and accessory cardiovascular devices associated with adverse incidents; E87.5 Hyperkalemia; K74.60 Unspecified cirrhosis of liver; Z20.822 Contact with and (suspected) exposure to COVID-19; E78.00 Pure hypercholesterolemia, unspecified; I16.0 Hypertensive urgency; I25.10 Atherosclerotic heart disease of native coronary artery without angina pectoris; J44.9 Chronic obstructive pulmonary disease, unspecified; K21.9 Gastro-esophageal reflux disease without esophagitis; Z82.49 Family history of ischemic heart disease and other diseases of the circulatory system; Z86.73 Personal history of transient ischemic attack (TIA), and cerebral infarction without residual deficits; Z99.2 Dependence on renal dialysis; Z79.899 Other long term (current) drug therapy; Z79.82 Long term (current) use of aspirin; Z68.24 Body mass index [BMI] 24.0-24.9, adult; Y92.89 Other specified places as the place of occurrence of the external cause
CPT/HCPCS: 36415; 36556; 36902; 36905; 36907; 71045; 76937; 77001; 80048; 80053; 82962; 84132; 84145; 85014; 85018; 85025; 85027; 86705; 86850; 86900; 86920; 87340; 87426; 93005; 93971; 94644; 99152; 99153; 99285; C1725; C1752; C1766; C1769; C2630; J0696; J0885; J1644; J1815; J1940; J3010; J3490; J7040; J7060; L8514; P9016; Q9967; G0500